=== PATIENT | female | born 1990 | race African-American/Black ===

== ENCOUNTER 2019-08-03 17:52 | Emergency (ER) | payer BC, SELFPAY ==
[2019-08-03 18:05] VITALS: BP 163/118; PULSE 83; RESP 18; TEMP 37; O2SAT 98; BMI 15.5
--- NOTE | 2019-08-03 18:08 | ECG_ITS ---
APPROVED REPORT Exam: Resting ECG HR:76 bpm ECG Measurements Heart Rate 76 AXES OR 146 P 51 QRSd 92 QRS 13 QT 414 T 7 QTc 465 <Conclusion> Normal sinus rhythm Normal ECG Electronically signed by : Surya Fatima, 08/05/2019 11:41:45
--- NOTE | 2019-08-03 18:37 | HMH.EDGENADL ---
ED Disposition Clinical Impression: Hypertension Qualifiers: Hypertension type: essential hypertension Qualified Code(s): I10 - Essential (primary) hypertension Disposition: Home, Self-Care Condition on Discharge: Good Instructions: Essential Hypertension Additional Instructions: You have been evaluated for high blood pressure. This could be due to essential hypertension or secondary hypertension. It is important that you follow-up with your primary care provider as soon as available. You may start taking HCTZ. Return to the emergency department for any vision changes, headache, numbness, weakness, tingling. Prescriptions: hydroCHLOROthiazide [HCTZ 12.5mg cap] 12.5 mg PO DAILY #15 cap Prescription Printed Referrals: Provider,Referral, [Primary Care Provider] - Time of Disposition: 19:33 - Critical Care Critical Care Time: No Attestation: On 08/03/19, the high probability of a clinically significant, sudden or life threatening deterioration of the following system(s) required my full and direct attention, intervention and personal management. The time I documented below is in addition to time spent performing reported procedures but includes the following listed in this critical care notation. Medical Decision Making - Chun Inquiry Pt receiving controlled substance: No Vital Signs: 08/03/19 18:05 Temperature 98.6 F Temperature Source Oral Pulse Rate [Right Radial] 83 Respiratory Rate 18 Blood Pressure [Right Arm] 163/118 H Blood Pressure Mean [Right Arm] 133 Blood Pressure Source [Right Arm] Automatic Cuff Blood Pressure Position [Right Arm] Sitting 02 Sat by Pulse Oximetry 98 Oxygen Delivery Method Room Air - Lab Data Lab Results 08/03/19 18:35: WBC 8.4, RBC 4.75, Hgb 13.7, Hct 41.1, MCV 86.5, MCH 28.8, MCHC 33.3, RDW 14.1, Plt Count 226, MPV 9.3, Neut % (Auto) 53.5, Lymph % (Auto) 37.5, [place] % (Auto) 4.2, Eos % (Auto) 4.4, Baso % (Auto) 0.4, Neut # (Auto) 4.5, Lymph # (Auto) 3.2, [place] # (Auto) 0.4, Eos # (Auto) 0.4, Baso # (Auto) 0.0 08/03/19 18:35: Urine HCG, Qual Negative 08/03/19 18:39: Urine Color Yellow, Urine Appearance Clear, Urine pH 6.0, Ur Specific [place] 1.010, Urine Protein Negative, Urine Glucose (UA) Negative, Urine Ketones Negative, Urine Blood Negative, Urine Nitrate Negative, Urine Bilirubin Negative, Urine Urobilinogen 0.2, Ur Leukocyte Esterase 1+ A, Urine WBC 3-5, Ur Squamous Epith Cells 3-5, Urine Bacteria Trace Result diagrams: 08/03/19 18:35 Orders (Tests/Meds): ORDERS Category Date Time Status Comprehensive Metabolic Panel Stat Lab 08/03/19 18:35 Received Urine Culture Stat Micro 08/03/19 18:39 Received - ECG Data Tracing #1 Sinus rhythm with ventricular rate of 76 bpm. QRS 92. QTc 465. Medical Decision Narrative: In summary this is a 29-year-old female presenting to the emergency department with elevated blood pressure and intermittent headaches. Patient is in no acute distress on arrival to the emergency department. Vital signs are stable. She is hypertensive with blood pressure of 180/110. Differential diagnoses include essential hypertension, secondary hypertension. Plan to obtain CBC, CMP, urinalysis, EKG. EKG shows sinus rhythm with ventricular rate of 76 bpm. There is some evidence of LVH. Laboratry results are generally unremarkable. Renal function adequate. No spillage of protein in the urine. Counseled that she has retention. She will likely need a renal ultrasound in the future. She is given prescription for 12.5 mg HCTZ. She has a primary care follow-up within 1 week. Given return precautions. General Adult HPI - General Chief complaint: Weakness Stated complaint: high blood pressure Time Seen by Provider: 08/03/19 18:17 Mode of Arrival: Ambulatory Source of Information: Patient Limitations: No Limitations Description of Symptoms (Recalled from ER Triage Doc. by RN): Pt reports high blood pressure when she ch
[2019-08-03 18:43] LABS: Microscopic, Urine URINE MICROSCOPIC (MICROSCOPIC)
[2019-08-03 18:48] LABS: Basophils % 0.4 % (0.1-2.0); Eosinophils # 0.4 K/mm3 (0.0-0.4); Eosinophils % 4.4 % (0.1-12.0); Hematocrit 41.1 % (37.0-47.0); Hemoglobin 13.7 g/dL (12.2-16.2); Lymphocytes # 3.2 K/mm3 (0.7-4.5); Lymphocytes % 37.5 % (10-50); Mean Corpuscular HGB Conc 33.3 g/dL (31.8-35.4); Mean Corpuscular Hemoglobin 28.8 pg (27.0-31.2); Mean Corpuscular Volume 86.5 fl (81-99); Mean Platelet Volume 9.3 fl (7.4-10.4); Monocytes # 0.4 K/mm3 (0.1-1.0); Monocytes % 4.2 % (1.7-9.3); Neutrophils # 4.5 K/mm3 (1.8-7.8); Neutrophils % 53.5 % (37.0-80.0); Platelet Count 226 K/mm3 (142-424); Red Blood Count 4.75 M/mm3 (4.20-5.40); Red Cell Distribution Width 14.1 % (11.5-17.5); White Blood Count 8.4 K/mm3 (4.8-10.8)
[2019-08-03 18:49] LABS: Appearance,Urine CLEAR (Clear); Bilirubin,Urine Negative (Negative); Blood, Urine Negative (Negative); Color,Urine YELLOW (Yellow); Glucose,Urine (UA) Negative (Negative); Ketones,Urine Negative (Negative); Leukocyte Esterase,Urine 1+ (Negative); Nitrate,Urine Negative (Negative); Protein,Urine Negative (Negative); Urobilinogen,Urine 0.2 EU/dl (0.2)
[2019-08-03 19:01] LABS: Bacteria,Urine Trace /lpf
[2019-08-03 19:02] LABS: Urine Pregnancy, HCG Qual. Negative (Negative)
[2019-08-03 19:11] LABS: Alanine Aminotransferase 19 U/L (12-78); Albumin Level 4.4 g/dl (3.5-5.0); Albumin/Globulin Ratio 1.3 (1.1-1.8); Alkaline Phosphatase 66 U/L (38-126); Anion Gap 13.9 mEq/L (5-15); Aspartate Amino Transferase 26 U/L (14-36); Bilirubin,Total 0.2 mg/dl (0.2-1.3); Blood Urea Nitrogen 10 mg/dl (7-17); Calcium 9.5 mg/dl (8.4-10.2); Carbon Dioxide 26 mmol/L (22.0-30.0); Chloride 102 mmol/L (98-107); Creatinine Clearance Estimated 156 mL/min (50-200); Estimated Glomerular Filt Rate 73 ml/min (>60); GFR (African American) 88 ML/MIN (>60); Globulin 3.3 g/dL (1.3-3.2); Glucose 99 mg/dl (74-100); Potassium 3.9 mmoL/L (3.5-5.1); Sodium 138 mmol/L (136-145); Total Protein,Serum 7.7 g/dl (6.3-8.2)
[2019-08-03 19:53] VITALS: BP 165/119; PULSE 74; RESP 16; TEMP 36.7; O2SAT 100
== END 2019-08-03 19:56 | disposition home or self-care (01) ==
PROVIDERS: Emergency Provider Emergency Medicine
DX: R51 Headache (principal); I10 Essential (primary) hypertension; F41.9 Anxiety disorder, unspecified; F17.210 Nicotine dependence, cigarettes, uncomplicated
CPT/HCPCS: 80053; 81001; 81025; 85025; 87086; 93005; 99283

== ENCOUNTER 2020-01-28 13:18 | Emergency (ER) | payer BC, SELFPAY ==
[2020-01-28 13:18] VITALS: BP 145/95; PULSE 138; RESP 16; TEMP 37.1; O2SAT 98; BMI 38.0
--- NOTE | 2020-01-28 13:44 | CT_ITS ---
PROCEDURE: CT LUMBAR SPINE WO CON CLINICAL HISTORY: PAIN Right-sided back pain COMPARISON: CT CT ABDOMEN PELVIS W CON from 01/28/2020 TECHNIQUE: Axial images obtained with sagittal and coronal reformats. All CT scans at the facility use one or more dose reduction, viz: automated exposure control, ma/kV adjustment per patient size (including targeted exams where dose is matched to indication, i.e. head), or iterative reconstruction technique. FINDINGS: There is normal alignment. No fracture or dislocation is evident. No lytic or blastic change. There is minimal bulging disc at L3-L4, L4-5, and L5-S1 with minimal central disc protrusion at L5-S1. Mild foraminal narrowing on the left and L4-5 and L5-S1. Nonemergent MRI may provide further evaluation clinically desired. IMPRESSION: 1. No acute fracture. 2. Minimal bulging disc L4-5 and L5-S1 with mild left foraminal narrowing at those levels Dictated by: Yaya White MD 01/28/2020 15:31 Yaya White MD in [facility] 01/28/2020 15:31
--- NOTE | 2020-01-28 13:44 | CT_ITS ---
PROCEDURE: CT ABDOMEN PELVIS W CON CLINICAL INDICATION: RLQ PAIN Right lower quadrant pain COMPARISON: No exams were available for comparison TECHNIQUE: IV Contrast: 75ML Isovue 370 Oral Contrast None Axial images obtained with sagittal and coronal reformats. All CT scans at the facility use one or more dose reduction, viz: automated exposure control, ma/kV adjustment per patient size (including targeted exams where dose is matched to indication, i.e. head), or iterative reconstruction technique. FINDINGS: LOWER THORAX: There are patchy peripheral areas of ground-glass attenuation in both right and left lower lobe. Possible atelectatic change. Mild Covid19 pneumonia could have a similar appearance ABDOMEN & PELVIS: The liver, gallbladder, spleen, adrenal glands, pancreas, and kidneys have an unremarkable appearance. No renal or ureteral calculi. No hydronephrosis. Unremarkable appearing appendix. There is some mild thickening of the colon involving the splenic flexure and descending colon. This is nonspecific and could be due to nondistention or mild colitis. There are few scattered small retroperitoneal lymph nodes which are nonspecific and a few small peritoneal lymph nodes also nonspecific. No intestinal obstruction or free air is evident. No acute bony finding. The uterus is anteverted and slightly bulky. There are somewhat irregular areas of decreased attenuation within the uterine fundus. The left ovary is slightly prominent at 4.8 by 2.7 cm. The right ovary is unremarkable. There is a small amount of fluid in the cul-de-sac. IMPRESSION: 1. No evidence of appendicitis. 2. Somewhat bulky uterus with irregular low-density changes in the fundus of the uterus. Consider pelvic ultrasound for further evaluation. There is a reported negative test. There is a small amount of cul-de-sac fluid and the left ovary is slightly prominent. Pelvic inflammatory disease with endometritis is a consideration. Please correlate with clinical findings. 3. Mild thickening of the splenic flexure and descending colon nonspecific and may be related to nondistention or colitis. Dictated by: Yaya White MD 01/28/2020 15:28 Yaya White MD in [place] 01/28/2020 15:28
[2020-01-28 13:48] LABS: Microscopic, Urine URINE MICROSCOPIC (MICROSCOPIC)
[2020-01-28 13:56] LABS: Alanine Aminotransferase 24 U/L (12-78); Albumin Level 4.6 g/dl (3.5-5.0); Albumin/Globulin Ratio 1.3 (1.1-1.8); Alkaline Phosphatase 82 U/L (38-126); Anion Gap 10.8 mEq/L (5-15); Aspartate Amino Transferase 31 U/L (14-36); Bilirubin,Total 0.7 mg/dl (0.2-1.3); Blood Urea Nitrogen 7 mg/dl (7-17); Calcium 9.3 mg/dl (8.4-10.2); Carbon Dioxide 28 mmol/L (22.0-30.0); Chloride 104 mmol/L (98-107); Creatinine Clearance Estimated 146 mL/min (50-200); Estimated Glomerular Filt Rate 65 ml/min (>60); GFR (African American) 78 ML/MIN (>60); Globulin 3.6 g/dL (1.3-3.2); Glucose 101 mg/dl (74-100); Potassium 3.8 mmoL/L (3.5-5.1); Sodium 139 mmol/L (136-145); Total Protein,Serum 8.2 g/dl (6.3-8.2)
[2020-01-28 13:56] LABS: Appearance,Urine CLEAR (Clear); Bilirubin,Urine Negative (Negative); Blood, Urine Negative (Negative); Color,Urine YELLOW (Yellow); Glucose,Urine (UA) Negative (Negative); Ketones,Urine Negative (Negative); Leukocyte Esterase,Urine Negative (Negative); Nitrate,Urine Negative (Negative); Protein,Urine Negative (Negative); Specific Gravity, Urine >= 1.030 (1.005-1.030); Urobilinogen,Urine 0.2 EU/dl (0.2)
[2020-01-28 14:02] LABS: Urine Pregnancy, HCG Qual. Negative (Negative)
[2020-01-28 14:06] LABS: Basophils % 0.5 % (0.1-2.0); Eosinophils # 0.3 K/mm3 (0.0-0.4); Eosinophils % 4.7 % (0.1-12.0); Hematocrit 45.6 % (37.0-47.0); Hemoglobin 14.8 g/dL (12.2-16.2); Lymphocytes # 2.4 K/mm3 (0.7-4.5); Lymphocytes % 35.9 % (10-50); Mean Corpuscular HGB Conc 32.5 g/dL (31.8-35.4); Mean Corpuscular Hemoglobin 28.5 pg (27.0-31.2); Mean Corpuscular Volume 87.8 fl (81-99); Mean Platelet Volume 9.7 fl (7.4-10.4); Monocytes # 0.4 K/mm3 (0.1-1.0); Monocytes % 5.3 % (1.7-9.3); Neutrophils # 3.6 K/mm3 (1.8-7.8); Neutrophils % 53.6 % (37.0-80.0); Platelet Count 279 K/mm3 (142-424); Red Cell Distribution Width 15.2 % (11.5-17.5); White Blood Count 6.7 K/mm3 (4.8-10.8)
[2020-01-28 14:18] LABS: Squamous Epithelial Cell,Urine Occasional #/hpf (0-5)
[2020-01-28 14:28] LABS: Lipase 66 U/L (23-300)
[2020-01-28 14:55] VITALS: BP 111/78; PULSE 71
--- NOTE | 2020-01-28 16:32 | HMH.EDGENADL ---
ED Disposition Clinical Impression: Lumbar disc herniation Disposition: Home, Self-Care Condition on Discharge: Good Instructions: DI for Lumbar Radiculopathy Prescriptions: Ibuprofen [Ibuprofen 800mg Tablet] 800 mg PO TIDP PRN #20 tab PRN Reason: Moderate Pain Prescription Printed methocarbamoL [Robaxin 750mg Tab] 750 mg PO TID 10 Days #30 tab Prescription Printed Referrals: Daily Valentine [Primary Care Provider] - - Critical Care Critical Care Time: No Attestation: On 01/28/20, the high probability of a clinically significant, sudden or life threatening deterioration of the following system(s) required my full and direct attention, intervention and personal management. The time I documented below is in addition to time spent performing reported procedures but includes the following listed in this critical care notation. Medical Decision Making - Medical Records Medical records reviewed: Yes: I reviewed the patient's medical records. - Chun Inquiry Pt receiving controlled substance: No Vital Signs: 01/28/20 13:18 01/28/20 14:55 Temperature 98.7 F Temperature Source Oral Pulse Rate [Radial] 138 H 71 Respiratory Rate 16 Blood Pressure [Right Arm] 145/95 H 111/78 Blood Pressure Mean [Right Arm] 111 89 Blood Pressure Position [Right Arm] Sitting 02 Sat by Pulse Oximetry 98 Oxygen Delivery Method Room Air - Lab Data Lab Results 01/28/20 13:26: Urine Color Yellow, Urine Appearance Clear, Urine pH 6.0, Ur Specific [place] >= 1.030, Urine Protein Negative, Urine Glucose (UA) Negative, Urine Ketones Negative, Urine Blood Negative, Urine Nitrate Negative, Urine Bilirubin Negative, Urine Urobilinogen 0.2, Ur Leukocyte Esterase Negative, Urine WBC 3-5, Ur Squamous Epith Cells Occasional 01/28/20 13:26: Urine HCG, Qual Negative 01/28/20 13:40: WBC 6.7, RBC 5.20, Hgb 14.8, Hct 45.6, MCV 87.8, MCH 28.5, MCHC 32.5, RDW 15.2, Plt Count 279, MPV 9.7, Neut % (Auto) 53.6, Lymph % (Auto) 35.9, [place] % (Auto) 5.3, Eos % (Auto) 4.7, Baso % (Auto) 0.5, Neut # (Auto) 3.6, Lymph # (Auto) 2.4, [place] # (Auto) 0.4, Eos # (Auto) 0.3, Baso # (Auto) 0.0 01/28/20 13:40: Sodium 139, Potassium 3.8, Chloride 104, Carbon Dioxide 28, Anion Gap 10.8, BUN 7, Creatinine 1.00, Estimated Creat Clear 146, Estimated GFR 65, Est GFR ( Amer) 78, Glucose 101 H, Calcium 9.3, Total Bilirubin 0.7, AST 31, ALT 24, Alkaline Phosphatase 82, Total Protein 8.2, Albumin 4.6, Globulin 3.6 H, Albumin/Globulin Ratio 1.3 01/28/20 13:40: Lipase 66 Result diagrams: 01/28/20 13:40 01/28/20 13:40 Orders (Tests/Meds): ED MEDICATIONS Discontinued Medications Generic Name Dose Route Start Last Admin Trade Name Freq PRN Reason Stop Dose Admin Iopamidol 75 ml 01/28/20 14:43 01/28/20 14:44 Iopamidol-370 (76%);100ml Bottle IV 01/28/20 14:44 75 ml ONCE ONE Administration Ketorolac Tromethamine 30 mg 01/28/20 13:44 01/28/20 13:47 Ketorolac 30mg/Ml Vial IV 01/28/20 13:45 30 mg ONCE ONE Administration Sodium Chloride 10 ml 01/28/20 14:43 01/28/20 14:44 Sodium Chloride 0.9% 10ml Syr (Rad Only) IV 01/28/20 14:44 10 ml ONCE ONE Administration - CT Data CT Scan: Abdomen, Pelvis, L-Spine Time Received: 16:[address] Reviewed: Yes: I have reviewed the patient's CT results, I have viewed the radiologist's interpretation Findings Narrative: CT Lumbar: 1. No acute fracture. 2. Minimal bulging disc L4-5 and L5-S1 with mild left foraminal narrowing at those levels CT abd/pelvis: 1. No evidence of appendicitis. 2. Somewhat bulky uterus with irregular low-density changes in the fundus of the uterus. Consider pelvic ultrasound for further evaluation. There is a reported negative test. There is a small amount of cul-de-sac fluid and the left ovary is slightly prominent. Pelvic inflammatory disease with endometritis is a consideration. Please correlate with clinical findings. 3.
[2020-01-28 16:48] VITALS: BP 125/74; PULSE 78; RESP 16; TEMP 36.6; O2SAT 98
== END 2020-01-28 16:51 | disposition home or self-care (01) ==
PROVIDERS: Emergency Provider Emergency Medicine; PCP Pediatrics
DX: M51.26 Other intervertebral disc displacement, lumbar region (principal); I10 Essential (primary) hypertension; F41.9 Anxiety disorder, unspecified; F17.210 Nicotine dependence, cigarettes, uncomplicated; Z79.899 Other long term (current) drug therapy
CPT/HCPCS: 72131; 74177; 80053; 81001; 81025; 83690; 85025; 96374; 99283; Q9967

== ENCOUNTER → 2020-08-06 14:14 | Outpatient (CLI) | payer BC, SELFPAY ==
--- NOTE | 2020-08-06 14:14 | US_ITS ---
PROCEDURE: US TRANSVAGINAL CLINICAL INDICATION: pelvic pain COMPARISON: No exams were available for comparison FINDINGS: A few small cervical nabothian cyst noted. There is extensive complex fluid throughout the endometrium with marked thickening of the endometrium of 6-7 centimeters. Uterus measures 10 x 7 x 8 cm with a volume of about 270 cc. Right ovary is normal. Left ovary shows a 3 centimeter mildly complex cyst on it. Right ovary measures 4 x 4 x 3 cm with a volume of about 30 cc and the left ovary 4 x 3 x 3 cm with a volume of about 18 cc with normal vascular flow to both ovaries. There is a small amount of nonspecific free fluid in the posterior cul-de-sac. IMPRESSION: Extensive complex fluid throughout the endometrium with marked thickening of the endometrium of 6-7 centimeters. 3 centimeter mildly complex cyst on the left ovary. Repeat transvaginal ultrasound in 6 or 12 weeks recommended for close follow-up. Small amount of nonspecific free fluid in the posterior cul-de-sac. Several small cervical nabothian cysts. Dictated by: [place] Alt[place] 08/07/2020 08:57 [place] in [place] 08/07/2020 08:57
== END ==
PROVIDERS: PCP Pediatrics; Visit Provider Nurse Practitioner Obstetrics & Gynecology
DX: R10.2 Pelvic and perineal pain (principal)
CPT/HCPCS: 76830

== ENCOUNTER 2020-09-17 11:00 | Observation (INO) | payer BC, SELFPAY ==
[2020-09-14 14:59] VITALS: BMI 37.8
[2020-09-17] VITALS (22 sets, daily range): BP systolic 116–152; BP diastolic 64–88; PULSE 64–94; RESP 14–24; TEMP 36.6–42.7; O2SAT 91–99; BMI 36.5
[2020-09-17 06:46] LABS: Coronavirus 19, PCR Not Detected (NotDetected); Influenza A, PCR Not Detected (NotDetected); Influenza B, PCR Not Detected (NotDetected)
[2020-09-17 06:51] LABS: Urine Pregnancy, HCG Qual. Negative (Negative)
--- NOTE | 2020-09-17 06:54 | P.PN_ITS ---
[facility] Anesthesia Checklist - Patient Identification Patient Identification: Arm Band - Structural Data Admitted From: Home Planned Operative Procedure/s: [facility] Consent for Planned Operative Procedure(s) Verified: Yes - NPO Status Verified Time NPO: 00:00 - Additional verifications Anesthesia Reactions: No Hx Blood Transfusions: No Blood Transfusion Reaction: No - Airway Assessment C-Spine Mobility Assessed: Yes TMJ Mobility Assessed: Yes Dentition: Good Dentition - Neurological Assessment Level of Consciousness: Awake Hx Seizures: No Numbness or tingling in extremities: No - Anesthesia Plan Anesthesia Risk discussed: Yes Anesthesia Plan: Verified ASA Class: II Anesthesia Type: General [facility] History I have reviewed the patient's past medical history: Yes Medical History: Reports:: Anxiety, Hypertension Denies:: Cancer, Diabetes Mellitus Type 1, Diabetes Mellitus Type 2, Internal Pacemaker, MRSA, Seizures *Have you ever received a pneumonia vaccine?: No *Have you received a flu vaccine this season?: No Other Medical History: Denies: Blood Transfusion Reaction Anesthesia experience/problems:: None Other Surgeries: Yes: , Other. No: Pacemaker Amputation: No Fractures: No - *Social History Last grade of school completed: High school graduate Smoking Status: Current every day smoker Tobacco Type: cigarettes # Packs/Day (cigarettes): 1 Alcohol Intake: never Alcohol Intake Frequency:: other Substance Use Type: marijuana *Occupational Status:: employed Housing: house Household Members: spouse, family *Travel in the last 8 weeks: None - Psychiatric History Pschychiatric History:: Reports:: Anxiety Family Hx:: Hyperlipidemia, Hypertension, Stroke
--- NOTE | 2020-09-17 09:57 | HMH.OPNOTE ---
Date of procedure: 09/17/20 Pre-op Diagnosis:: Pelvic pain, hematometra, menorrhagia, fibroid uterus Post-op Diagnosis:: Pelvic pain, hematometra, menorrhagia, fibroid uterus, extensive pelvic peritoneal adhesions Procedure performed:: Laparoscopically assisted vaginal hysterectomy, bilateral salpingectomy, extensive lysis of adhesions Surgeon:: Yayo Hurley MD Branch Associate Teller(s):: Clarita Brennan WELL SERVICING RIG OPERATOR:: Jun Hill Anesthesia: GETA Estimated blood loss (mL): 150 Clinical Note:: She is a 30-year-old 3 para 3 lady who complains of severe lower abdominal pain. An ultrasound showed that she had hematometra. She had a previous endometrial ablation. Since then the blood in her uterus has drained and her pain has resolved somewhat. She does have a fibroid. She continued to have abnormal bleeding. As result of that she was offered laparoscopic-assisted vaginal hysterectomy and bilateral salpingectomy. Operative findings:: She had an anteverted bulky uterus. The ovaries and tubes appeared normal. There were extensive omental adhesions along the anterior abdominal wall from the umbilicus all the way down the anterior wall to the pelvic brim. Ovaries and tubes appeared normal. The tubes been previously ligated. Upper abdomen appeared normal. Rest the pelvis appeared normal. Operative note:: She was taken to the operating room where general anesthesia was found be adequate. She was prepped and draped in normal sterile fashion in the semilithotomy position. A weighted speculum was placed in the vagina and the anterior lip of the cervix was grasped with a tenaculum. An acorn uterine manipulator was then placed within the cervical os. I then changed gloves. I injected 10 cc of 0.5% ropivacaine around the umbilicus and made a small incision within the umbilicus. I inserted a Veress needle into the abdominal cavity. The abdominal cavity was then insufflated with carbon dioxide gas to a pressure of 20 mmHg. I then inserted an 11 mm trocar under direct vision. I injected through and through the pubic hairline, made a small incision here and inserted a 5 mm trocar under direct vision. I identified the inferior epigastric arteries on the left side, went lateral to these and injected through and through. I then made a small incision and inserted an 11 mm trocar under direct vision. A similar 11 mm trocar was placed on the right side. There were extensive omental adhesions from the umbilicus down to the pelvic brim. Using harmonic scalpel I took these down. I needed to change the location of the camera from umbilical port to left and right lateral ports as I took down the adhesions. After freeing this up we then turned our attention to the hysterectomy portion of the surgery. The left round ligament was then grasped and cut through with harmonic scalpel. This was followed by opening up the peritoneum anteriorly to the midline. I then grasped the tube on the left side and cut through this. This is followed by cutting through the left utero-ovarian ligament. I used Harmonic scalpel on the coagulation mode. I then took down the posterior aspect of the broad ligament to the level of the uterosacral ligament. I then skeletonized the uterine arteries on the left side and placed hemoclips on these. Using the harmonic scalpel on coagulation mode adjacent to the cervix I then took down these uterine arteries. I then further freed up the bladder anteriorly and laterally on the left side. I then turned my attention to the right side where I grasped the right round ligament. The right tube was adherent to the right pelvic sidewall and using harmonic scalpel I was able to free this up. I then cut through the right round ligament. I then took down the anterior peritoneum to the midline joining up with the other side. I further dissected the bladder off. The posterior aspect of the right broad ligament was then taken down with harmonic scalpel
--- NOTE | 2020-09-17 10:20 | HMH.ANESI ---
[facility] Anesthesia Record Part I Intake, IV Amount: 1,000 Estimated blood loss (mL): 150 Urine output (mL): 100 Blood Pressure: 122/64 SaO2: 92 Pulse Rate: 91 Respiratory Rate: 24 Temperature: 98.4 F Patient is:: Drowsy, Oral/Nasal airway Stable to PACU at:: 10:15
[2020-09-17 10:55] LABS: Microscopic,Cath URINE MICROSCOPIC (MICROSCOPIC)
[2020-09-17 11:03] LABS: Appearance,Urine/Cath CLEAR (Clear); Bilirubin,Cath Negative (Negative); Blood, Urine/Cath TRACE-I (Negative); Color,Urine/Cath YELLOW (Yellow); Glucose,Urine/Cath (UA) Negative (Negative); Ketones,Urine/Cath Negative (Negative); Leukocyte Esterase,Cath 1+ (Negative); Nitrate,Cath Negative (Negative); PH,Urine/Cath 5.5 (5.0-8.5); Protein,Urine/Cath Negative (Negative); Specific Gravity, Urine/Cath 1.025 (1.005-1.030); Urobilinogen,Cath 0.2 EU/dl (0.2)
[2020-09-17 11:18] LABS: Bacteria,Urine/Cath TRACE /lpf
[2020-09-17 16:16] LABS: Hematocrit 37.9 % (37.0-47.0); Hemoglobin 12.5 g/dL (12.2-16.2)
--- NOTE | 2020-09-17 17:46 | PC.NURSE ---
dr. teague gave orders to decrease infusion rate of fluids to 50ml/hr. r/v all orders
--- NOTE | 2020-09-17 18:53 | PC.NURSE ---
1700: pt linens changed at this time. Pt up to bathroom independently. Denies needs or c/o
--- NOTE | 2020-09-17 18:58 | PC.NURSE ---
Report given to Vandana GALINDO and Marcella GALINDO.
[2020-09-18] VITALS (7 sets, daily range): BP systolic 129–143; BP diastolic 71–86; PULSE 68–85; RESP 16–18; TEMP 36.7–36.9; O2SAT 95–100
--- NOTE | 2020-09-18 05:06 | PC.NURSE ---
pt has been awake most of the shift, pain has been controlled no change from previous assessment
[2020-09-18 05:59] LABS: Basophils % 0.1 % (0.1-2.0); Eosinophils # 0.3 K/mm3 (0.0-0.4); Eosinophils % 2.1 % (0.1-12.0); Hematocrit 35.2 % (37.0-47.0); Hemoglobin 11.3 g/dL (12.2-16.2); Mean Corpuscular HGB Conc 32.2 g/dL (31.8-35.4); Mean Corpuscular Hemoglobin 28.1 pg (27.0-31.2); Mean Corpuscular Volume 87.2 fl (81-99); Mean Platelet Volume 9.1 fl (7.4-10.4); Monocytes # 0.4 K/mm3 (0.1-1.0); Monocytes % 2.8 % (1.7-9.3); Neutrophils # 12.8 K/mm3 (1.8-7.8); Neutrophils % 81.9 % (37.0-80.0); Platelet Count 229 K/mm3 (142-424); Red Blood Count 4.04 M/mm3 (4.20-5.40); Red Cell Distribution Width 13.2 % (11.5-17.5); White Blood Count 15.6 K/mm3 (4.8-10.8)
[2020-09-18 06:03] LABS: MANUAL DIFFERENTIAL MANUAL DIFFERENTIAL (MANUAL DIFF)
[2020-09-18 06:09] LABS: Anion Gap 9.9 mEq/L (5-15); Blood Urea Nitrogen 12 mg/dl (7-17); Carbon Dioxide 27 mmol/L (22.0-30.0); Chloride 103 mmol/L (98-107); Creatinine Clearance Estimated 139 mL/min (50-200); Estimated Glomerular Filt Rate 64 ml/min (>60); GFR (African American) 78 ML/MIN (>60); Potassium 3.9 mmoL/L (3.5-5.1); Sodium 136 mmol/L (136-145)
[2020-09-18 06:10] LABS: Calcium 8.3 mg/dl (8.4-10.2); Glucose 112 mg/dl (74-100)
--- NOTE | 2020-09-18 07:10 | PC.NURSE ---
report given to Lenny Javier RN
[2020-09-18 08:11] LABS: Eosinophils % 1 % (0-3); Lymphocytes % 13 % (10-50); Monocytes % 5 % (2-9); Neutrophils % 81 % (42-76); Total Cells Counted 100
[2020-09-18 08:12] LABS: Hypochromasia 1+; Macrocytosis 1+; Platelet Estimate Normal
--- NOTE | 2020-09-18 08:48 | P.PN_ITS ---
[facility] Anesthesia Record Part II Discharge Time: 10:45 Destination: Surgical Day Care (OP Surgery) PACU nurse assessment reviewed?: Yes Patient Condition:: Good Anesthesia Complications:: None Swallowing reflex intact?: Yes Cyanosis?: No Blood Pressure: 130/75 Pulse Rate: 85 Temperature: 98.4 F Mental Status: Alert & Oriented Pain level:: 0 Nausea and/or vomitting:: None Intake, IV Amount: 0
--- NOTE | 2020-09-18 09:32 | PC.NURSE ---
0815 Dr Hurley rounded. Reported pt's pain 11/02 after administration of oxycodone 10mg PO at 0610. Orders to monitor pt until lunch time and try Dilaudid PO 2mg q3hrs for moderate to severe pain. v/u
--- NOTE | 2020-09-18 10:30 | PC.NURSE ---
Teaching provided r/t incisional care. All lap incisions cleansed and assessed. No signs/symptoms of infection noted, all incisions approximated. Pt v/u of care.
--- NOTE | 2020-09-18 11:06 | HMH.DCSUM ---
General - General Admission date:: 09/17/20 Discharge date: 09/18/20 HPI HPI: She is a 30-year-old 3 para 3 lady who had a hematometra that drained. She was having discomfort. She is known to have a fibroid as well. After having discussed the risks and benefits we elected to perform a laparoscopically assisted vaginal hysterectomy and bilateral salpingectomy. She has had a previous endometrial ablation. Hospital Course Hospital Course: On September 17, 2020 she underwent a laparoscopic-assisted vaginal hysterectomy and bilateral salpingectomy. She has done well postoperatively and has remained afebrile with her hospitalization. She was having some issues with pain control and we have given her oral Dilaudid. This is helped with her pain. She is eating and drinking and ambulating. She denies any shortness of breath, chest pain or calf tenderness. Her incisions are clean and dry. She will be discharged home to follow-up with me in approximately 2 weeks time. She will continue with her home medications. She was given the usual instructions with respect to limiting her activity, driving and sexual activity. She was given instructions with respect to wound care. She was given a prescription for hydromore phone 2 mg number 20 tablets. She was given a prescription for Toradol 10 mg number 20 tablets. Her condition on discharge is stable and improved. Objective Vital signs: Temp Pulse Resp BP Pulse Ox 98.4 F 85 16 130/75 100 09/18/20 08:49 09/18/20 08:49 09/18/20 08:24 09/18/20 08:49 09/18/20 08:00 no acute distress - *Routine HEENT Exam Head: Present: normocephalic Eye: Present: EOMI, PERRL ENT: Present: mucous membranes moist - *Routine Neck Exam Present: supple - *Routine Respiratory Exam Present: CTA bilaterally - *Routine Cardiovascular Exam Present: RRR - *Routine Abdominal Exam Present: soft, normoactive bowel sounds. Absent: tenderness - *Routine Extremities Exam Absent: cyanosis, clubbing, edema - *Routine Skin Exam Present: warm. Absent: rash - Detailed Eye Exam Eyelids: Bilateral normal inspection Results Labs on day of discharge: Labs from last 24 hours 09/18/20 09/18/20 09/17/20 05:49 05:49 16:06 WBC 15.6 H RBC 4.04 L Hgb 11.3 L 12.5 Hct 35.2 L 37.9 MCV 87.2 MCH 28.1 MCHC 32.2 RDW 13.2 Plt Count 229 MPV 9.1 Neut % (Auto) 81.9 H Lymph % (Auto) 13.0 [place] % (Auto) 2.8 Eos % (Auto) 2.1 Baso % (Auto) 0.1 Neut # (Auto) 12.8 H Lymph # (Auto) 2.0 [place] # (Auto) 0.4 Eos # (Auto) 0.3 Baso # (Auto) 0.0 Total Counted 100 Neutrophils % (Manual) 81 H Lymphocytes % (Manual) 13 Monocytes % (Manual) 5 Eosinophils % (Manual) 1 Platelet Estimate Normal Hypochromasia 1+ Macrocytosis 1+ Sodium 136 Potassium 3.9 Chloride 103 Carbon Dioxide 27 Anion Gap 9.9 BUN 12 Creatinine 1.00 Estimated Creat Clear 139 Estimated GFR 64 Est GFR ( Amer) 78 Glucose 112 H Calcium 8.3 L Urine Color Urine Appearance Urine pH Ur Specific [place] Urine Protein Urine Glucose (UA) Urine Ketones Urine Blood Urine Nitrate Urine Bilirubin Urine Urobilinogen Ur Leukocyte Esterase Urine RBC Urine WBC Ur Squamous Epith Cells Urine Bacteria 09/17/20 10:00 WBC RBC Hgb Hct MCV MCH MCHC RDW Plt Count MPV Neut % (Auto) Lymph % (Auto) [place] % (Auto) Eos % (Auto) Baso % (Auto) Neut # (Auto) Lymph # (Auto) [place] # (Auto) Eos # (Auto) Baso # (Auto) Total Counted Neutrophils % (Manual) Lymphocytes % (Manual) Monocytes % (Manual) Eosinophils % (Manual) Platelet Estimate Hypochromasia Macrocytosis Sodium Potassium Chloride Carbon Dioxide Anion Gap BUN Creatinine Estimated Creat Clear Estimated GFR Est GFR ( Amer) Glucose Calci
== END 2020-09-18 12:15 | disposition home or self-care (01) ==
PROVIDERS: Admitting Provider Nurse Practitioner Obstetrics & Gynecology; PCP Pediatrics; Visit Provider Nurse Practitioner Obstetrics & Gynecology
PROC: 0UT9FZZ Resection of Uterus, Via Natural or Artificial Opening With Percutaneous Endoscopic Assistance (ICD-10-PCS; CPT 58552; principal; 2020-09-17 07:30)
DX: N85.2 Hypertrophy of uterus (principal); R10.2 Pelvic and perineal pain; N85.7 Hematometra; D25.9 Leiomyoma of uterus, unspecified; N73.6 Female pelvic peritoneal adhesions (postinfective); N92.0 Excessive and frequent menstruation with regular cycle; Z20.822 Contact with and (suspected) exposure to COVID-19
CPT/HCPCS: 58552; 49329; 36415; 80048; 81001; 81025; 85007; 85014; 85018; 85025; 87086; 96374; C9290; G0378; J2405; J2710; U0003

== ENCOUNTER → 2021-02-27 11:49 | Outpatient (CLI) | payer BC, SELFPAY | PROVIDERS: PCP Orthopaedic Surgery; Visit Provider Nurse Practitioner | DX: U07.1 COVID-19 (principal) | CPT/HCPCS: C9803; U0003; U0005 ==

== ENCOUNTER 2021-06-14 21:24 | Emergency (ER) | payer BC, SELFPAY ==
[2021-06-14 21:25] VITALS: BP 140/86; PULSE 91; RESP 18; TEMP 36.9; O2SAT 97; BMI 34.3
[2021-06-14 21:43] VITALS: BMI 34.3
--- NOTE | 2021-06-14 22:00 | PC.NURSE ---
pt declined to have pelvic exam At this time
--- NOTE | 2021-06-14 22:07 | HMH.EDUROGF ---
ED Disposition Clinical Impression: Urethritis, nonspecific Disposition: Home, Self-Care Condition on Discharge: Good Instructions: DI for Urethritis Additional Instructions: use meds and see pcp for follow up Prescriptions: Minocycline HCl [Minocycline HCl 100mg Tab*] 100 mg PO BID #20 tab Transmission Status: Pending to [facility] Referrals: Daily Valentine [Primary Care Provider] - - Critical Care Critical Care Time: No Attestation: On 06/14/21, the high probability of a clinically significant, sudden or life threatening deterioration of the following system(s) required my full and direct attention, intervention and personal management. The time I documented below is in addition to time spent performing reported procedures but includes the following listed in this critical care notation. Medical Decision Making - Medical Records Medical records reviewed: Yes: I reviewed the patient's medical records. - Chun Inquiry Pt receiving controlled substance: No Vital Signs: 06/14/21 21:25 Temperature 98.4 F Temperature Source Oral Pulse Rate [Right] 91 H Respiratory Rate 18 Blood Pressure [Right Arm] 140/86 Blood Pressure Mean [Right Arm] 104 02 Sat by Pulse Oximetry 97 - Lab Data Lab results reviewed: Yes: I reviewed the patient's lab results. Orders (Tests/Meds): ED MEDICATIONS Discontinued Medications Generic Name Dose Route Start Last Admin Trade Name Freq PRN Reason Stop Dose Admin Ceftriaxone Sodium 1 gm 06/14/21 21:57 Ceftriaxone 1gm Vial IM 06/14/21 21:58 ONCE ONE Lidocaine HCl 0 ml 06/14/21 21:57 Lidocaine 1% 5ml Pf Vial IM 06/14/21 21:58 ONCE ONE ORDERS Category Date Time Status Urinalysis and Microscopic Stat Lab 06/14/21 21:45 Ordered Medical Decision Narrative: reported exposure to std will give treatment at this time Female Urogenital HPI - General Chief complaint: Urogenital-Female Stated complaint: painful urination Time Seen by Provider: 06/14/21 22:07 Mode of Arrival: Ambulatory Source of Information: Patient, Medical Record Limitations: No Limitations Description of Symptoms (Recalled from ER Triage Doc. by RN): pt states she was exposed to a STD pt c/o painful urination and burning and itching - History of Present Illness HPI Narrative: reported exposure to gc - pt w/o sx Complaint: possible STD Onset (ago): hour(s) Severity: moderate Urinary Symptoms: dysuria Sexual activity: yes : No Associated symptoms: denies other symptoms - Related Data Home Medications Medication Instructions Recorded Confirmed lisinopril 10 1 tab PO DAILY 07/25/20 11/01/20 mg-hydrochlorothiazide 12.5 mg tablet Previous Rx's Medication Instructions Recorded Minocycline HCl [Minocycline HCl 100 mg PO BID #20 tab 06/14/21 100mg Tab*] Allergies Allergy/AdvReac Type Severity Reaction Status Date / Time guaifenesin [From Mucinex] Allergy Unknown Verified 11/01/20 10:04 morphine Allergy itching Verified 11/01/20 10:04 [facility] History - Hepatitis A Screen Drug use history?: No High risk sexual behaviors?: No History of sexually transmitted infection?: No Currently employed?: No Childcare worker?: No Do you have indoor plumbing?: No Do you have electricity?: No Attestation statement:: This patient has been screened for Hepatitis A risk factors. I have reviewed the patient's past medical history: Yes Medical History: Reports:: Anxiety, Hypertension Denies:: Cancer, Diabetes Mellitus Type 1, Diabetes Mellitus Type 2, Internal Pacemaker, MRSA, Seizures Other Medical History: Denies: Blood Transfusion Reaction Other Surgeries: Yes: , Hysterectomy-Total, Tubal Ligation (Bilateral Salpingectomy), Other. No: Pacemaker Amputation: No Fractures: No Comment: D&C, 2020-[facility] - Social History Smoking Status: Current every day smoker Tobacco Type: cigarettes # Packs/Day (ciga
[2021-06-14 22:31] VITALS: BP 141/74; PULSE 90; RESP 18; TEMP 36.9; O2SAT 97
[2021-06-14 22:40] LABS: Microscopic, Urine URINE MICROSCOPIC (MICROSCOPIC)
[2021-06-14 22:44] LABS: Appearance,Urine CLEAR (Clear); Bilirubin,Urine Negative (Negative); Blood, Urine TRACE-I (Negative); Color,Urine YELLOW (Yellow); Glucose,Urine (UA) Negative (Negative); Ketones,Urine Negative (Negative); Leukocyte Esterase,Urine TRACE (Negative); Nitrate,Urine Negative (Negative); PH,Urine 5.5 (5.0-8.5); Protein,Urine Negative (Negative); Urobilinogen,Urine 0.2 EU/dl (0.2)
[2021-06-19 06:17] LABS: Neisseria gonorrhoeae, NAA Negative (Negative)
== END 2021-06-14 22:36 | disposition home or self-care (01) ==
PROVIDERS: Emergency Provider Emergency Medicine; PCP Pediatrics
DX: N34.2 Other urethritis (principal); I10 Essential (primary) hypertension; F41.9 Anxiety disorder, unspecified; F17.210 Nicotine dependence, cigarettes, uncomplicated
CPT/HCPCS: 81001; 87086; 87491; 87591; 96372; 99283; J0696

== ENCOUNTER 2023-07-17 14:49 | Emergency (ER) | payer BC, SELFPAY ==
[2023-07-17 15:00] VITALS: BP 137/93; PULSE 88; RESP 20; TEMP 36.8; O2SAT 98; BMI 36.5
[2023-07-17 15:12] LABS: Microscopic, Urine URINE MICROSCOPIC (MICROSCOPIC)
[2023-07-17 15:20] LABS: Appearance,Urine CLEAR (Clear); Bilirubin,Urine Negative (Negative); Blood, Urine Negative (Negative); Color,Urine YELLOW (Yellow); Glucose,Urine (UA) Negative (Negative); Ketones,Urine Negative (Negative); Leukocyte Esterase,Urine TRACE (Negative); Nitrate,Urine Negative (Negative); PH,Urine 6.5 (5.0-8.5); Protein,Urine Negative (Negative)
--- NOTE | 2023-07-17 15:26 | ED_ITS ---
Discharge Plan Disposition Patient Disposition: Home, Self-Care Condition: Good Prescriptions Prescriptions: No Action lisinopril-hydrochlorothiazide 10-12.5 mg tablet 1 tab PO DAILY Referrals Follow up/Referrals: Paresh Denis [Primary Care Provider] - See instructions Activity Restrictions/Add. Instructions Additional Instructions/Restrictions: Make sure to follow up with your Family Doctor in the next 5-7 days to get your results they can request the test results and go over them with you No sexual activity until your results are back and they are all negative Follow up with OBGYN Clinical Impressions Clinical Impression: Possible exposure to STD Instructions Patient Instructions: Informing Partners of STI Patients Reduces Ongoing and Recurrent Sexually T, How to Detect and Treat STDs Discharge ED Provider: Darby Mccallum [facility] General Stated complaint: tested for STD Mode of Arrival: Ambulatory Source of Information: Patient Limitations: No Limitations Time Seen by Provider: 07/17/23 15:26 Description of Symptoms (Recalled from Triage Doc. by RN): PATIENT REQUESTING STD TESTING HEENT Symptoms (Recalled from RN notes): No Resp Symptoms (Recalled from RN notes): No Skin Symptoms (Recalled from RN notes): No MS Symptoms (Recalled from RN notes): No Functional Status (Recalled from RN notes): WNL History of Present Illness Provider Complaint: Patient states that she wanted to get tested for STD's States that [facility] but they only had half of her tests and not sure what happened to the rest so she came in today wanting to get tested for STD's specifically HIV, Hep C and Syphilis States that she was positive for Trich a few weeks ago not sure if it is gone now or not Related Data Home Medications Medication Instructions Recorded Confirmed lisinopril 10 1 tab PO DAILY High blood pressure 07/25/20 07/17/23 mg-hydrochlorothiazide 12.5 mg tablet Allergies Allergy/AdvReac Type Severity Reaction Status Date / Time guaifenesin [From Mucinex] Allergy Unknown Verified 11/01/20 10:04 morphine Allergy itching Verified 11/01/20 10:04 Worker's Comp Is this a Worker's Comp case?: No [facility] Disclaimer: The information contained in this section may have been updated after the patient was seen, as this information can be updated by other users. 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 current occupational exposures/hazards: No caffeine: Yes ROS Obtained: Yes All systems reviewed & no additional complaints except as documented and Yes Systems reviewed as appropriate & no additional complaints except as documented Constitutional Constitutional: Reports system reviewed and no additional complaints, except as documented and Reports as per HPI ENT Ears, Nose, Mouth, and Throat: Reports system reviewed and no additional complaints, except as documented and Reports as per HPI Cardiovascular Cardiovascular: Reports system reviewed and no additional complaints, except as documented and Reports as per HPI Respiratory Respiratory: Reports system reviewed and no additional complaints, except as documented and Reports as per HPI Gastrointestinal Gastrointestingal: Reports system reviewed and no additional complaints, except as documented and as per HPI Genitourinary Female Genitourinary: Reports system reviewed and no additional complaints, except as documented and Reports as per HPI Physical Exam General General appearance: alert and in no apparent distress ENT ENT exam: Present mucous membranes moist Respiratory Respiratory exam: Present normal lung sounds bilaterally; Absent respiratory distress or wheezes Cardiovascular Cardiovascular exam: Present regular rate, normal rhythm and normal heart sounds Abdominal Exam Abdominal exam: Present soft and normal bowel sounds; Absent distention or tenderness Neurological Exam Neurological exam: Present alert, oriented X3 and normal gait Medical Decision Making Chun Inquiry Pt receiving controlled substance: No Chun was queried for this patient: No Vital Signs: 07/17/23 15:00 Temperature 98.2 F Temperature Source Oral Pulse Rate [Left Brachial] 88 Respiratory Rate 20 Blood Pressure [Left Arm] 137/93 H Blood Pressure Mean [Left Arm] 107 Blood Pressure Source [Left Arm] Automatic Cuff Blood Pressure Position [Left Arm] Sitting 02 Sat by Pulse Oximetry 98 Oxygen Delivery Method Room Air Lab Data Lab results reviewed: Yes I reviewed the patient's lab results. Lab Results 07/17/23 15:00: Urine Color Yellow, Urine Appearance Clear, Urine pH 6.5, Ur Specific Sylvester 1.020, Urine Protein Negative, Urine Glucose (UA) Negative, Urine Ketones Negative, Urine Blood Negative, Urine Nitrate Negative, Urine Bilirubin Negative, Urine Urobilinogen 1.0, Ur Leukocyte Esterase Trace Orders (Tests/Meds): ORDERS Category Date Time Status Urinalysis and Microscopic Stat Lab 07/17/23 15:00 Results
[2023-07-17 15:32] LABS: Bacteria,Urine Trace /lpf; RBC,Urine Occasional #/hpf (0-3); WBC,Urine Occasional #/hpf (0-3)
[2023-07-17 16:18] VITALS: BP 137/93; PULSE 88; RESP 20; TEMP 36.8; O2SAT 98
[2023-07-19 12:44] LABS: HBsAg Screen Negative (Negative); HCV Ab Non Reactive (Non Reactive); HIV Screen 4th Generation wRfx Non Reactive (Non Reactive); Hep A Ab, IGM Negative (Negative); Hep B Core Ab, IgM Negative (Negative); Rapid Plasma Reagin Ab Titer Non Reactive titer (NonRea<1:1)
[2023-07-19 14:20] LABS: HBsAg Screen Negative (Negative); HCV Ab Non Reactive (Non Reactive); Hep A Ab, IGM Negative (Negative); Hep B Core Ab, IgM Negative (Negative)
[2023-07-20 12:58] LABS: HIV Screen 4th Generation wRfx Non Reactive
[2023-07-21 21:13] LABS: Neisseria gonorrhoeae, NAA Negative (Negative)
[2023-07-26 08:16] LABS: Hepatitis C Antibody Non Reactive
== END 2023-07-17 16:21 | disposition home or self-care (01) ==
PROVIDERS: Emergency Provider Nurse Practitioner; PCP Pediatrics
DX: Z20.2 Contact with and (suspected) exposure to infections with a predominantly sexual mode of transmission (principal)
CPT/HCPCS: 80074; 81001; 86593; 86703; 87380; 87491; 87591; 99203; 99212; G0432; G0463

== ENCOUNTER 2024-01-06 11:49 | Emergency (ER) | payer BC, SELFPAY ==
[2024-01-06 12:05] VITALS: BP 124/77; PULSE 75; RESP 18; TEMP 36.8; O2SAT 100; BMI 38.0
--- NOTE | 2024-01-06 12:07 | EXP.UTC ---
Discharge Plan Disposition Patient Disposition: Home, Self-Care Condition: Good Prescriptions Prescriptions: New amoxicillin 875 mg tablet 875 mg PO Q12H Qty: 20 0RF No Action lisinopril-hydrochlorothiazide 10-12.5 mg tablet 1 tab PO DAILY Referrals Follow up/Referrals: Paresh Denis [Primary Care Provider] - See instructions Activity Restrictions/Add. Instructions Additional Instructions/Restrictions: *Monitor Temp, Over the counter Motrin or Tylenol as directed/as needed Tylenol every 4 hours and Motrin every 6 hours (as long as your family doctor has told you that you can take it) for fever or pain. and straight to ER if unable to lower temp less than 101.0 after medication given *Warm salt water gargles may help to soothe the throat *Throat Lozenges? *Warm fluids like tea with honey may help to soothe the throat? *Sleep elevated *Humidifier/Vaporizer *Take medication as prescribed Your throat swab was sent for culture. Those results are typically sent to your primary care. Be sure to follow up in 2-3 days with your family doctor/primary care physician if no improvement so they can review those result and treat if necessary. If you don?t have a primary care doctor, I recommend you get one but in the mean time, you will have to return to a walk in clinic Follow up IMMEDIATELY for new or worsening symptoms or no Noticeable improvement over the next 48-72 hours. 911 for difficulty breathing or swallowing Clinical Impressions Clinical Impression: Pharyngitis Instructions Patient Instructions: Sore Throat, Amoxicillin Print Language Print Language: Azeri Discharge ED Provider: Darby Mccallum [facility] [place] General Stated complaint: sore throat, past fever Mode of Arrival: Ambulatory Source of Information: Patient Time Seen by Provider: 01/06/24 12:07 Description of Symptoms (Recalled from Triage Doc. by RN): SORE THROAT, NECK PAIN AND COUGH HEENT Symptoms (Recalled from RN notes): Yes Resp Symptoms (Recalled from RN notes): Yes Skin Symptoms (Recalled from RN notes): No MS Symptoms (Recalled from RN notes): No Functional Status (Recalled from RN notes): WNL History of Present Illness Provider Complaint: Patient states that she has been having sore throat, swollen tonsils and cough States that her throat feels dry and scratchy States today she was still not feeling any better so she came in to get checked Related Data Home Medications ?Medication ?Instructions ?Recorded ?Confirmed lisinopril 10 1 tab PO DAILY High blood pressure 07/25/20 01/06/24 mg-hydrochlorothiazide 12.5 mg tablet Previous Rx's ?Medication ?Instructions ?Recorded amoxicillin 875 mg tablet 875 mg PO Q12H #20 tabs 01/06/24 Allergies Allergy/AdvReac Type Severity Reaction Status Date / Time guaifenesin (From Mucinex) Allergy Unknown Verified 11/01/20 10:04 morphine Allergy itching Verified 11/01/20 10:04 Worker's Comp Is this a Worker's Comp case?: No [facility] Disclaimer: The information contained in this section may have been updated after the patient was seen, as this information can be updated by other users. 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 current occupational exposures/hazards: No caffeine: Yes ROS Obtained: Yes All systems reviewed & no additional complaints except as documented and Yes Systems reviewed as appropriate & no additional complaints except as documented Constitutional Constitutional: Reports system reviewed and no additional complaints, except as documented and Reports as per HPI ENT Ears, Nose, Mouth, and Throat: Reports system reviewed and no additional complaints, except as documented, Reports as per HPI and Reports sore throat Cardiovascular Cardiovascular: Reports system reviewed and no additional complaints, except as documented and Reports as per HPI Respiratory Respiratory: Reports system reviewed and no additional complaints, except as documented, Reports as per HPI and Reports cough Gastrointestinal Gastrointestingal: Reports system reviewed and no additional complaints, except as documented and as per HPI Physical Exam General General appearance: alert and in no apparent distress ENT ENT exam: Present mucous membranes moist and TM's normal bilaterally Expanded ENT Exam Throat exam: Present tonsillar erythema (small patchy like area noted) Respiratory Respiratory exam: Present normal lung sounds bilaterally; Absent respiratory distress or wheezes Cardiovascular Cardiovascular exam: Present regular rate, normal rhythm and normal heart sounds Neurological Exam Neurological exam: Present alert, oriented X3 and normal gait Medical Decision Making Medical Records Screening: Per USPSTF and CDC recommendations, given the prevalence of disease in our region, it is our hospital?s policy to screen for HIV and viral Hepatitis for all patients aged 18 and over and those with ongoing risk factors. Chun Inquiry Pt receiving controlled substance: No Chun was queried for this patient: No Vital Signs: 01/06/24 12:05 Temperature 98.2 F Temperature Source Oral Pulse Rate [Left Radial] 75 Respiratory Rate 18 Blood Pressure [Left Arm] 124/77 Blood Pressure Mean [Left Arm] 92 02 Sat by Pulse Oximetry 100 Lab Data Lab results reviewed: Yes I reviewed the patient's lab results.
[2024-01-06 12:11] LABS: UTC Strep Screen (Rapid) Negative (Negative)
[2024-01-06 12:15] VITALS: BP 124/77; PULSE 75; RESP 18; TEMP 36.8
== END 2024-01-06 12:25 | disposition home or self-care (01) ==
PROVIDERS: Emergency Provider Nurse Practitioner; PCP Pediatrics
DX: J02.9 Acute pharyngitis, unspecified (principal)
CPT/HCPCS: 87880; 99213; G0381

== ENCOUNTER 2024-07-04 22:36 | Emergency (ER) | payer OTHER, SELFPAY ==
--- OUTSIDE RECORDS SUMMARY | 2024-07-04 22:46 | XMS_ITS | Data Portability ---
Author Organization [place] - [facility] ADMIN Address [address] [place] [id number] Care Team Providers Care Medical Asst Name Role Phone PARESH DENIS Primary Care Provider [phone] Assessment No assessment recorded. Plan of Treatment Reminders Order Date Submit Date Provider Last Modified By Organization Details Last Modified Time Details Appointments None recorded. Lab TSH + free T4, serum 2023 024 PARLIN [facility], [address], [place], [address], 4 04:23:48 CBC w/ auto diff 2023 024 PARLIN [facility], [address], [place], [address], 4 04:23:49 CMP, serum or plasma 2023 024 PARLIN [facility], [address], [place], [address], 4 04:23:52 infectious disease panel 2023 024 GASTON [facility], [address], [place], [address], 4 13:30:55 lipid panel, serum 2023 024 GASTON [facility], [address], [place], [address], 4 04:23:50 Hepatitis C IgG Ab, qual, serum 2023 024 [facility], [address], [address], [place], [address], 4 04:23:51 HIV 1 + 2, meaningful use set 2023 024 PARLIN [facility], [address], [place], [address], 4 04:23:51 Referral ophthalmol ogist referral 2022 023 [email or web address] [place] Cazares MD, [address], [facility] [address], [place], [address], 3 16:06:39 Procedures None recorded. Surgeries None recorded. Imaging None recorded. Medication Orders lisinopril 40 mg tablet 2023 024 [facility], [address] [place], [address], 4 11:54:06 tizanidine 4 mg tablet 2023 024 [facility], [address] [place], [address], 4 11:54:06 loratadine 10 mg tablet 2023 024 [facility], [address] [place], [address], 4 11:54:05 amitriptyl ine 25 mg tablet 2023 024 [facility], [address] [place], [address], 4 11:54:06 loratadine 10 mg tablet 2022 023 7 [facility], [address] [place], [address], 3 20:53:16 lisinopril 20 mg-hydroch lorothiazi de 12.5 mg tablet 2022 023 [email or web address] 7 [facility], [address] [place], [address], 3 15:51:55 tizanidine 4 mg tablet 2022 023 [email or web address] 7 [facility], [address] [place], [address], 3 10:29:12 Patient TargetsNo targets recorded. Patient InstructionsNo instructions recorded. 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 Decision Support Manager Referral for Ophthalmic examination and evaluation Referring Physician: Paresh Denis, Internal Medicine, Encounter Date: 09/29/2022 Results Created Date Observation Date Name Description Value Unit Range Abnormal Flag Note LastModifiedBy Organization Detail LastModifiedTime 02/05/20 24 02/06/2024 CMP14 +EGFR glucose 84 mg/dL 70-99 normal Not Available [facility] ([facility]) [address] [place], [address], 02/06/2024 06:38:48 02/05/20 24 02/06/2024 CMP14 +EGFR BUN 6 mg/dL 6-20 normal Not Available [facility] ([facility]) [address] [place], [address], 02/06/2024 06:38:48 02/05/20 24 02/06/2024 CMP14 +EGFR creatinine 0.93 mg/dL 0.57-1 .00 normal Not Available [facility] ([facility]) [address] [place], [address], 02/06/2024 06:38:48 02/05/20 24 02/06/2024 CMP14 +EGFR eGFR 82 mL/mi n/1.7 3 >59 normal Not Available [facility] ([facility]) [address] [facility], [place], [address], 02/06/2024 06:38:48 02/05/20 24 02/06/2024 CMP14 +EGFR BUN/creatini ne ratio 6 9-23 below low normal Not Available [facility] ([facility]) [address] [facility] [place], [address], 02/06/2024 06:38:48 02/05/20 24 02/06/2024 CMP14 +EGFR sodium 138 mmol/ L 134-14 4 normal Not Available [facility] ([facility]) [address] [place], [address], 02/06/2024 06:38:48 02/05/20 24 02/06/2024 CMP14 +EGFR potassium 4.4 mmol/ L 3.5-5. 2 normal Not Available [facility] ([facility]) [address] [place], [address], 02/06/2024 06:38:48 02/05/20 24 02/06/2024 CMP14 +EGFR chloride 103 mmol/ L 96-106 normal Not Available [facility] ([facility]) [address] [place], [address], 02/06/2024 06:38:48 02/05/20 24 02/06/2024 CMP14 +EGFR carbon dioxide, total 20 mmol/ L 20-29 normal Not Available [facility] ([facility]) [address] [place], [address], 02/06/2024 06:38:48 02/05/20 24 02/06/2024 CMP14 +EGFR calcium 9.3 mg/dL 8.7-10 .2 normal Not Available [facility] ([facility]) [address] [place], [address], 02/06/2024 06:38:48 02/05/20 24 02/06/2024 CMP14 +EGFR protein, total 7.3 g/dL 6.0-8. 5 normal Not Available [facility] ([facility]) [address] [place], [address], 02/06/2024 06:38:48 02/05/20 24 02/06/2024 CMP14 +EGFR albumin 4.4 g/dL 3.9-4. 9 normal Not Available [facility] ([facility]) [address] [place], [address], 02/06/2024 06:38:48 02/05/20 24 02/06/2024 CMP14 +EGFR globulin, total 2.9 g/dL 1.5-4. 5 Not Available [facility] ([facility]) [address] [place], [address], 02/06/2024 06:38:48 02/05/20 24 02/06/2024 CMP14 +EGFR bilirubin, total 0.7 mg/dL 0.0-1. 2 normal Not Available [facility] ([facility]) [address] [place], [address], 02/06/2024 06:38:48 02/05/20 24 02/06/2024 CMP14 +EGFR alkaline phosphatase 80 IU/L 44-121 normal Not Available [facility] ([facility]) [address] [place], [address], 02/06/2024 06:38:48 02/05/20 24 02/06/2024 CMP14 +EGFR AST (SGOT) 21 IU/L 0-40 normal Not Available [facility] ([facility]) [address] [place], [address], 02/06/2024 06:38:48 02/05/20 24 02/06/2024 CMP14 +EGFR ALT (SGPT) 18 IU/L 0-32 normal Not Available [facility] ([facility]) [address] [place], [address], 02/06/2024 06:38:48 02/05/20 24 02/06/2024 TSH+F REE T4 TSH 0.467 uIU/m L 0.450- 4.500 normal Not Available [facility] ([facility]) [address] [place], [address], 02/06/2024 06:38:48 02/05/20 24 02/06/2024 TSH+F REE T4 T4,free(dire ct) 0.93 NG/dL 0.82-1 .77 normal Not Available [facility] ([facility]) [address] [place], [address], 02/06/2024 06:38:48 02/05/20 24 02/06/2024 CBC WITH DIFFE RENTI AL/PL ATELE T WBC 5.9 x10e3 /uL 3.4-10 .8 normal Not Available [facility] ([facility]) [address] [place], [address], 02/06/2024 06:38:49 02/05/20 24 02/06/2024 CBC WITH DIFFE RENTI AL/PL ATELE T RBC 5.33 x10e6 /uL 3.77-5 .28 above high normal Not Available [facility] ([facility]) [address] [place], [address], 02/06/2024 06:38:49 02/05/20 24 02/06/2024 CBC WITH DIFFE RENTI AL/PL ATELE T hemoglobin 15.4 g/dL 11.1-1 5.9 normal Not Available [facility] ([facility]) [address] [place], [address], 02/06/2024 06:38:49 02/05/20 24 02/06/2024 CBC WITH DIFFE RENTI AL/PL ATELE T hematocrit 47.0 % 34.0-4 6.6 above high normal Not Available [facility] ([facility]) [address] [place], [address], 02/06/2024 06:38:49 02/05/20 24 02/06/2024 CBC WITH DIFFE RENTI AL/PL ATELE T MCV 88 fL 79-97 normal Not Available [facility] ([facility]) [address] [facility], [place], [address], 02/06/2024 06:38:49 02/05/20 24 02/06/2024 CBC WITH DIFFE RENTI AL/PL ATELE T MCH 28.9 pg 26.6-3 3.0 normal Not Available [facility] ([facility]) [address] [place], [address], 02/06/2024 06:38:49 02/05/20 24 02/06/2024 CBC WITH DIFFE RENTI AL/PL ATELE T MCHC 32.8 g/dL 31.5-3 5.7 normal Not Available [facility] ([facility]) [address] [facility], [place], [address], 02/06/2024 06:38:49 02/05/20 24 02/06/2024 CBC WITH DIFFE RENTI AL/PL ATELE T RDW 13.4 % 11.7-1 5.4 Not Available [facility] ([facility]) [address] [place], [address], 02/06/2024 06:38:49 02/05/20 24 02/06/2024 CBC WITH DIFFE RENTI AL/PL ATELE T platelets 297 x10e3 /uL 150-45 0 normal Not Available [facility] ([facility]) [address] [place], [address], 02/06/2024 06:38:49 02/05/20 24 02/06/2024 CBC WITH DIFFE RENTI AL/PL ATELE T neutrophils 53 % not estab. normal Not Available [facility] ([facility]) [address] [place], [address], 02/06/2024 06:38:49 02/05/20 24 02/06/2024 CBC WITH DIFFE RENTI AL/PL ATELE T lymphs 36 % not estab. normal Not Available [facility] ([facility]) [address] [facility], [place], [address], 02/06/2024 06:38:49 02/05/20 24 02/06/2024 CBC WITH DIFFE RENTI AL/PL ATELE T monocytes 8 % not estab. normal Not Available [facility] ([facility]) [address] [facility], [place], [address], 02/06/2024 06:38:49 02/05/20 24 02/06/2024 CBC WITH DIFFE RENTI AL/PL ATELE T eos 3 % not estab. normal Not Available [facility] ([facility]) [address] [facility], [place], [address], 02/06/2024 06:38:49 02/05/20 24 02/06/2024 CBC WITH DIFFE RENTI AL/PL ATELE T basos 0 % not estab. normal Not Available [facility] ([facility]) [address] [facility], [place], [address], 02/06/2024 06:38:49 02/05/20 24 02/06/2024 CBC WITH DIFFE RENTI AL/PL ATELE T immature cells AGENT PRODUCER Not Available [facility] ([facility]) [address] [place], [address], 02/06/2024 06:38:49 02/05/20 24 02/06/2024 CBC WITH DIFFE RENTI AL/PL ATELE T neutrophils (absolute) 3.1 x10e3 /uL 1.4-7. 0 normal Not Available [facility] ([facility]) [address] [place], [address], 02/06/2024 06:38:49 02/05/20 24 02/06/2024 CBC WITH DIFFE RENTI AL/PL ATELE T lymphs (absolute) 2.1 x10e3 /uL 0.7-3. 1 normal Not Available [facility] ([facility]) [address] [facility], [place], [address], 02/06/2024 06:38:49 02/05/20 24 02/06/2024 CBC WITH DIFFE RENTI AL/PL ATELE T monocytes(ab solute) 0.4 x10e3 /uL 0.1-0. 9 normal Not Available [facility] ([facility]) [address] [place], [address], 02/06/2024 06:38:49 02/05/20 24 02/06/2024 CBC WITH DIFFE RENTI AL/PL ATELE T eos (absolute) 0.2 x10e3 /uL 0.0-0. 4 normal Not Available [facility] ([facility]) [address] [facility], [place], [address], 02/06/2024 06:38:49 02/05/20 24 02/06/2024 CBC WITH DIFFE RENTI AL/PL ATELE T baso (absolute) 0.0 x10e3 /uL 0.0-0. 2 normal Not Available [facility] ([facility]) [address] [place], [address], 02/06/2024 06:38:49 02/05/20 24 02/06/2024 CBC WITH DIFFE RENTI AL/PL ATELE T immature granulocytes 0 % not estab. Not Available [facility] ([facility]) [address] [place], [address], 02/06/2024 06:38:49 02/05/20 24 02/06/2024 CBC WITH DIFFE RENTI AL/PL ATELE T immature grans (abs) 0.0 x10e3 /uL 0.0-0. 1 Not Available [facility] ([facility]) [address] [place], [address], 02/06/2024 06:38:49 02/05/20 24 02/06/2024 CBC WITH DIFFE RENTI AL/PL ATELE T NRBC AGENT PRODUCER Not Available [facility] ([facility]) [address], [place], [address], 02/06/2024 06:38:49 02/05/20 24 02/06/2024 CBC WITH DIFFE RENTI AL/PL ATELE T hematology comments: AGENT PRODUCER Not Available [facility] ([facility]) [address], [place], [address], 02/06/2024 06:38:49 02/05/20 24 02/06/2024 LIPID PANEL cholesterol, total 203 mg/dL 100-19 9 above high normal Not Available [facility] ([facility]) [address], [place], [address], 02/06/2024 06:38:49 02/05/20 24 02/06/2024 LIPID PANEL triglyceride s 115 mg/dL 0-149 normal Not Available [facility] ([facility]) [address], [place], [address], 02/06/2024 06:38:49 02/05/20 24 02/06/2024 LIPID PANEL HDL cholesterol 40 mg/dL >39 normal Not Available [facility] ([facility]) [address] [facility], [place], [address], 02/06/2024 06:38:49 02/05/20 24 02/06/2024 LIPID PANEL VLDL cholesterol leroy 21 mg/dL 5-40 Not Available [facility] ([facility]) [address] [facility] [place], [address], 02/06/2024 06:38:49 02/05/20 24 02/06/2024 LIPID PANEL LDL chol calc ([facility]) 142 mg/dL 0-99 above high normal Not Available [facility] ([facility]) [address] [facility], [place], [address], 02/06/2024 06:38:49 02/05/20 24 02/06/2024 LIPID PANEL LDL calc comment: AGENT PRODUCER Not Available [facility] ([facility]) [address] [facility], [place], [address], 02/06/2024 06:38:49 02/05/20 24 02/06/2024 HCV ANTIB LISSETH RFX TO QUANT PCR HCV Ab NON REACTI VE non reacti ve Not Available [facility] ([facility]) [address] [facility], [place], [address], 02/06/2024 06:38:49 02/05/20 24 02/06/2024 HCV ANTIB LISSETH RFX TO QUANT PCR interpretati on: COMMEN T Not infec juan daniel with HCV unles s early or acute infec tion is suspe cted (whic h may be delay ed in an immun ocomp romis ed indiv idual ), or other evide nce exist s to indic ate HCV infec tion. Not Available [facility] ([facility]) [address] [facility], [place], [address], 02/06/2024 06:38:49 02/05/20 24 02/06/2024 HIV AB/P2 4 AG WITH REFLE X HIV Ab/P24 Ag screen NON REACTI VE non reacti ve HIV-1 /HIV- 2 antib odies and HIV-1 p24 antig en were NOT detec juan daniel. There is no labor atory evide nce of HIV infec tion. HIV Negat dwayne Not Available [facility] ([facility]) [address] [facility], [place], [address], 02/06/2024 06:38:50 02/05/20 24 02/06/2024 CGT (ASYM PTOMA TIC) chlamydia trachomatis 0.000 ppm 23.000 - 29.500 normal Not Detec juan daniel Not Available [facility] [address], [place], [address], 02/06/2024 13:30:55 02/05/20 24 02/06/2024 CGT (ASYM PTOMA TIC) neisseria gonorrhoeae 0.000 ppm 23.000 - 29.500 normal Not Detec juan daniel Not Available [facility] [address], [place], [address], 02/06/2024 13:30:55 02/05/20 24 02/06/2024 CGT (ASYM PTOMA TIC) trichomonas vaginalis 0.000 ppm 23.000 - 29.500 normal Not Detec juan daniel Not Available [facility] [address], [place], [address], 02/06/2024 13:30:55 Result Notes None recorded. Problems Name Problem SNOMED Code Status Onset Date Resolution Date Notes Provider Name and Address Organization Details Recorded Time Paresthesia 53589995 Active Flora Fleharty null, [place] - [facility] [place] 2 12:29:52 Goiter 4735787 Active Flora Fleharty null, [place] - [facility] [place] 2 12:29:52 Hypertensive disorder 17686674 Active Flora Fleharty null, [place] - [facility] [place] 2 12:29:52 Degeneration of lumbosacral intervertebra l disc 17207981 Active Flora Fleharty null, [place] - [facility] [place] 2 12:29:52 Spasm 95246372 Active 2022 Paresh Denis MD [address], [place], [address] , [place] - [facility] [place] 3 16:25:25 Chronic headache disorder 151294228 Active 2022 Paresh Denis MD [address], [place], [address] , [place] - [facility] [place] 3 16:25:28 Seasonal allergy 226596742 Active 2022 Paresh Denis MD [address], [place], [address] , [place]A [facility] & [place] 3 16:25:32 Problem Notes None recorded. Procedures Surgical History Date Name Laterality Status Provider Name and Address Organization Details Recorded Time 02/23/19 18 Date of Last Pap Smear completed Taniya SANCHEZ [facility] & [place] 06/12/2022 22:00:07 section completed Taniya SANCHEZ [facility] & [place] 06/12/2022 21:55:12 Total Hysterectomy completed Kim SANCHEZ [facility] & [place] 09/29/2022 15:47:28 Imaging Results None recorded. Procedure Notes None recorded. Medical Equipment None Reported. Allergies Allergen ID Allergen Name Allergen Category Reaction Reaction Severity Criticality Documentation Date Start Date Code Code System Note Provider Name and Address Organization Details Recorded Time 56395 morphine medicatio n Not available Not available Not available 12/24/2021 7052 RxNorm Flora willoughby [facility] & [place] 2 12:29:52 11664 guaifenes in medicatio n Not available Not available Not available 12/24/2021 5032 RxNorm Flora willoughby [facility] & [place] 2 12:29:52 Medications Name Sig Start Date Stop Date Status Note LastModified by Organization Details LastModified Time cyclobenzap rine 10 mg tablet 1 {tablet_a t_bedtime _as_neede d} by oral route. 09/28 completed Not Available Not Available Not Available tizanidine 2 mg tablet 1 {tablet_a s_needed} by oral route. 09/28 completed Not Available Not Available Not Available lisinopril 20 mg-hydrochl orothiazide 12.5 mg tablet TAKE 1 TABLET BY MOUTH EVERY DAY active Not Available Not Available No t Available tizanidine 4 mg tablet Take 1 tablet every 6 hours by oral route for 90 days. 2023 active Not Available Not Available Not Avai lable hydrocodone 5 mg-acetamin ophen 325 mg tablet TAKE 1 TABLET BY MOUTH EVERY 6 HOURS 02/04 completed Not Available Not Available Not Available minocycline 100 mg capsule TAKE ONE CAPSULE BY MOUTH TWICE DAILY -- FINISH ALL MEDICINE -- 09/28 completed Not Available Not Available Not Available metronidazo le 500 mg tablet TAKE 1 TABLET BY MOUTH TWICE A DAY FOR 7 DAYS 02/04 completed Not Available Not Available Not Available amitriptyli ne 25 mg tablet Take 1 tablet every day by oral route. 2023 active Not Available Not Available Not Avai lable lisinopril 40 mg tablet Take 1 tablet every day by oral route. 2023 active Not Available Not Available Not Avai lable loratadine 10 mg tablet Take 1 tablet every day by oral route for 90 days. 2023 active Not Available Not Available Not Avai lable Vitals Date Recorded Body weight Body mass index (BMI) Body height Body temperature Heart rate Systolic blood pressure Diastolic blood pressure Provider Name and Address Organization Details Last Updated DateTime 3 957954. 63 g 37.7 kg/m2 172.72 cm 96.9 [degF] 86 /min 110 mm[Hg] 79 mm[Hg] Kim Soto [facility] & [place] 3 15:51:17 Date Recorded Body weight Body temperature Oxygen saturation Oxygen saturation in Arterial blood by Pulse oximetry Heart rate Systolic blood pressure Diastolic blood pressure Provider Name and Address Organization Details Last Updated DateTime 4 631619. 87 g 97.8 [degF] 97 % 97 % 99 /min 132 mm[Hg] 88 mm[Hg] Kate Chappell [facility] & [place] 4 11:10:05 Social History Question Answer Notes LastModified by Organizat ion Details LastModified Time Tobacco Smoking Status Current Every Day Smoker Kim Soto [facility] & [place] 09/29/2022 15:47:03 Do You Have An Advance Directive? No [email or web address] Information not available 09/29/2022 Are You Blind Or Do You Have Difficulty Seeing? Yes Glasses Information not available 09/29/2022 Is Blood Transfusion Acceptable In An Emergency? Yes [email or web address] Information not available 09/29/2022 What Is Your Level Of Caffeine Consumption? Heavy [email or web address] Information not available 09/29/2022 In The 14 Days Before Symptom Onset, Have You Had Close Contact With A Laboratory-confir med COVID-19 While That Case Was Ill? No [email or web address] Information not available 09/29/2022 In The 14 Days Before Symptom Onset, Have You Had Close Contact With A Person Who Is Under Investigation For COVID-19 While That Person Was Ill? No [email or web address] Information not available 09/29/2022 Have You Been To An Area Known To Be High Risk For COVID-19? No [email or web address] Information not available 09/29/2022 Are You Deaf Or Do You Have Serious Difficulty Hearing? No Information not available 09/29/2022 What Type Of Diet Are You Following? REGULAR [email or web address] Information not available 09/29/2022 Which Illicit Or Recreational Drugs Have You Used? [place] [email or web address] Information not available 09/29/2022 Have You Processed Blood Or Body Fluids From An Ebola Virus Disease Patient Without Appropriate PPE? No Information not available 09/29/2022 Do You Reside In Or Have You Traveled To An Area Where Ebola Virus Transmission Is Active? No [email or web address] Information not available 09/29/2022 Have There Been Any Changes To Your Family Or Social Situation? No [email or web address] Information no t available 09/29/2022 What Is The Fluoride Status Of Your Home? Fluoridated [email or web address] Information not available 09/29/2022 Are There Any Guns Present In Your Home? No Information not available 09/29/2022 Have You Recently Or Are You Planning To Travel To An Area With Zika Virus? No [email or web address] Information not available 09/29/2022 Do You Use Insect Repellent Routinely? Yes [email or web address] Information not available 09/29/2022 What Was The Date Of Your Most Recent Tobacco Screening? 09/28/2022 [email or web address] Information not available 09/29/2022 What Is Your Current Pack Years? 10-19packyears [email or web address] Information not available 09/29/2022 Do You Have Any Pets? Yes [email or web address] Information not available 09/29/2022 Do You Use Your Seat Belt Or Car Seat Routinely? Yes [email or web address] Information not available 09/29/2022 Do You Have Smoke And Carbon Monoxide Detectors In Your Home? Yes Information not available 09/29/2022 At What Age Did You Start Smoking Tobacco? 17 [email or web address] Information not available 09/29/2022 Are You Passively Exposed To Smoke? Yes [email or web address] Information no t available 09/29/2022 How Much Tobacco Do You Smoke? 0.5 PPD [email or web address] Information not available 09/29/2022 Do You Use Sunscreen Routinely? Yes [email or web address] Information not available 09/29/2022 How Many Years Have You Smoked Tobacco? 10 [email or web address] Information not available 09/29/2022 Have You Used IV Drugs? No [email or web address] Information not available 09/29/2022 Are You Currently In School? No [email or web address] Information not available 09/29/2022 Sex: Female Functional Status Question Answer Note LastModified by Organizat ion Details LastModified Time Do you use any illicit or recreational drugs? Yes [email or web address] Information not available 09/29/2022 Do you or have you ever used any other forms of tobacco or nicotine? No [email or web address] Information not available 09/29/2022 What is your level of alcohol consumption? None Information not available 09/29/2022 Do you or have you ever used smokeless tobacco? Never used smokeless tobacco [email or web address] Information not available 09/29/2022 Are you currently employed? Yes [email or web address] Information not available 09/29/2022 Do you have difficulty walking or climbing stairs? No [email or web address] Information not available 09/29/2022 Do you have transportation difficulties? No Information not available 09/29/2022 Are you able to walk? YESWOREST [email or web address] Information not available 09/29/2022 Do you have difficulty doing errands alone? No [email or web address] Information not available 09/29/2022 Are you able to care for yourself? Yes [email or web address] Information n ot available 09/29/2022 Do you have difficulty dressing or bathing? No [email or web address] Information not available 09/29/2022 What is your exercise level? Moderate Information not available 09/29/2022 Mental Status Question Answer Note LastModified by Organizat ion Details LastModified Time Do you feel stressed (tense, restless, nervous, or anxious, or unable to sleep at night)? [id number] [email or web address] Information not available 09/29/2022 Do you have difficulty concentrating, remembering or making decisions? No [email or web address] Information no t available 09/29/2022 Family History Relationship Description Onset Age of this Age Resolved Age Notes LastModified by Organization Details LastModified Time Father Cerebrovascu lar accident [email or web address] Not available 21:58:27 Father Heart disease [email or web address] Not available 2022 21:58:57 Daughter Alive [email or web address] Not availab le 12/29/2023 14:07:59 Son Alive [email or web address] Not available 12/29/2023 14:07:59 Medical History Condition Response Anxiety Disorder Y Eczema Y Hypertension Y Gynecological History Statement/Question Response Menses Monthly N Abnormal Pap N Date of Last Pap Smear 02/23/2017 Current Control Method None Sexually Active? Y Obstetrics History GPAL:G 3 P 0 0 0 2 Type Value Living 2 Total 3 Immunizations Vaccine Type Date Status Note Provider Nam e and Address Organization Details Recorded Time COVID-19, mRNA, LNP-S, PF, 30 mcg/0.3 mL dose 03/10/2020 completed Paresh Denis MD [address] , [place], [address], [facility] - [facility] & [place] 09/29/2022 16:17:21 COVID-19, mRNA, LNP-S, PF, 30 mcg/0.3 mL dose 03/30/2020 completed Paresh Denis MD [address] , [place], [address], [place] - [facility] & [place] 09/29/2022 16:17:22 Past Encounters Encounter ID Performer Location Encounter Start Date Encounter Closed Date Diagnosis/Indication Diagnosis SNOMED-CT Code Diagnosis ICD10 Code Diagnosis Note [id number] [facility] [place] [address] [place] [address] 09/29/2022 15:07:45 09/29/2022 16:30:19 Hypertensive disorder 11746406 I10 Spasm 79086223 R25.2 Precordial pain 41181035 R07.2 Chronic he adache disorder 136629432 G44.89 Ophthalmic examination and evaluation 78917841 Z01.00 Seasonal allergy 5229038 04 J30.2 [id number] Paresh Denis MD [facility] and IM Declansierra stallings [address] [place] [address] 02/05/2024 10:45:48 02/05/2024 12:28:03 Chronic migraine without aura 4768733933 64127 G43.709 Hypertensive disorder 38 329247 I10 Spasm 48977611 R25.2 Seasonal allergy 9792093 04 J30.2 Goiter 0765833 E04.9 Hyperlipidemia 49447986 E78.5 HIV screening 760171768 Z11.4 Hepatitis C screening 41 5373157 Z11.59 Venereal d isease screening 496663598 Z11.3 Health Concerns Section Related Observation LastModified by Organization Detai ls LastModified Time None Recorded Concern Status LastModified by Organization Details LastModified Time None Recorded Advance Directives Directive N: Payers Insurance Date Sequence Insurance Name Policy Number Policy Ordoñez Covered Member ID Ordoñez Member ID Guarantor Name 02/08/2024 1 [employer] [employer] [id number] Cristiane Whatley [id number] Cristiane Cole Notes Date Note Type Note Provider Name and Address Organization Details Recorded Time 09/29/2022 text/html HTN: Very inconsistent with taking BP meds. Hasn't taken it today. Last took it yesterday. CP: Is feeling some heaviness in her chest from time to time. Feels a tightness in her heart. This is random when it happens. Thyromegaly: Has hx of enlarged thryoid. NO recent US. Last US ordered 2019 and not done. Not recent labs. Headaches: Last eye exam was 5 years. Poor compliance with BP meds. Gets HAs mult times per week. No prior dx of migraine headache. SCHULTZ feels like throbbing. Takes ibuprofen and this helps sometimes. Tyelnol doesn't help at all. HMS: PAP smear 2019 (Dr. Shah, [facility]). 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 No colonosocpy; no mammogram; no family hx. Paresh Denis MD [address], [place], [address], [facility] [place] & [place] 10/05/2022 20:53:19 02/05/2024 text/html HTN: History of being very inconsistent with taking BP meds. Doing better more recently; BP looks good.--Doesn't like Thyromegaly: Has hx of enlarged thryoid. NO recent US. Last US ordered 2019 and not done. Not recent labs. No current symptoms. Headaches: Gets HAs mult times per week. No prior dx of migraine headache. SCHULTZ feels like throbbing. Takes ibuprofen and this helps sometimes. Tylenol doesn't help at all. Denies photo-phonphobia. No vision changes. SCHULTZ is unilateral, on left side--Did go and get eye exam and everything stable.--Still getting SCHULTZ 2-3 days per week--Had been on elavil, but cannot recall why this was stopped HMS:--PAP smear 2019 (Dr. Shah, [facility]). 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 Paresh Denis MD [address], [place], [address], [facility] - [facility] 02/05/2024 11:56:26 OBGyn Episode No OBEpisode recorded.
[2024-07-04 22:52] VITALS: BP 185/108; PULSE 110; RESP 18; TEMP 36.9; O2SAT 98; BMI 39.5
--- NOTE | 2024-07-04 22:56 | ED_ITS ---
Discharge Plan Disposition Patient Disposition: Home, Self-Care Condition: Good Prescriptions Prescriptions: No Action lisinopril-hydrochlorothiazide 10-12.5 mg tablet 1 tab PO DAILY amoxicillin 875 mg tablet 875 mg PO Q12H Qty: 20 0RF Referrals Follow up/Referrals: Paresh Denis [Primary Care Provider] - See instructions Activity Restrictions/Add. Instructions Additional Instructions/Restrictions: You were evaluated in the emergency department today. Your testing is pending and your results will be uploaded to your portal. Please follow-up closely with your primary care provider. Your blood pressure was elevated today, however in the setting of acute stress, I do feel this is expected. Please keep an eye on it and let your primary care provider know if it continues to be elevated. Return to the emergency department for new or worsening symptoms. Clinical Impressions Clinical Impression: Possible exposure to STD, Hypertension Instructions Patient Instructions: How to Detect and Treat STDs, DI for Urinary Tract Infection (UTI), DI for Urinary Tract Infection in Children Print Language Print Language: Belarusian Discharge ED Provider: Malia Brunner General Adult HPI General Chief complaint: Urogenital-Female Stated complaint: Possible STD exposure Time Seen by Provider: 07/04/24 22:53 Mode of Arrival: Ambulatory Source of Information: Patient Description of Symptoms (Recalled from ER Triage Doc. by RN): patient states she would like to be checked for STD. Denies any symptoms History of Present Illness HPI narrative: This patient is a 34-year-old female who denies significant past medical history presenting to the emergency department for evaluation with concern for possible exposure to STD. Patient denies any symptoms/concerns/complaints. Patient reports that she went through her 's phone and found evidence that he was cheating on her, prompting her evaluation requesting testing today. She does not want empiric treatment Related Data Home Medications ?Medication ?Instructions ?Recorded ?Confirmed lisinopril 10 1 tab PO DAILY High blood pressure 07/25/20 01/06/24 mg-hydrochlorothiazide 12.5 mg tablet Previous Rx's ?Medication ?Instructions ?Recorded amoxicillin 875 mg tablet 875 mg PO Q12H #20 tabs 01/06/24 Allergies Allergy/AdvReac Type Severity Reaction Status Date / Time guaifenesin (From Mucinex) Allergy Unknown Verified 11/01/20 10:04 morphine Allergy itching Verified 11/01/20 10:04 PFSH PFSH Disclaimer: The information contained in this section may have been updated after the patient was seen, as this information can be updated by other users. 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 current occupational exposures/hazards: No caffeine: Yes Have you lived/traveled outside [place] in past 30 days?: No Contact w/someone who lives/traveled outside US past 30 days?: No Exposure to someone with infectious disease in past 14 days?: No Do you have a fever (greater than 100.4 F or 38 C)?: No Have you tested positive for COVID-19?: No Exposed to someone with COVID-19 in past 14 days?: No Do you have a sore throat?: No Do you have a cough?: No Do you have any weakness?: No Do you have any diarrhea?: No Are you experiencing any unusual bleeding?: No Do you have any muscle aches/pain?: No Do you have any abdominal pain?: No Are you experiencing loss of taste or smell?: No Other Medical History Have you received the Flu Vaccine for this season: No Have you received the Pneumonia Vaccine: No ROS Obtained: Yes All systems reviewed & no additional complaints except as documented Physical Exam General General appearance: alert and in no apparent distress Head Head exam: atraumatic and normocephalic Eye Eye exam: Present normal appearance, PERRL and EOMI ENT ENT exam: Present normal exam, normal oropharynx, mucous membranes moist and normal external ear exam Neck Neck exam: Present normal inspection, full ROM and trachea midline; Absent tenderness Chest Chest inspection: Present normal inspection and symmetric chest wall rise; Absent tenderness Respiratory Respiratory exam: Present normal lung sounds bilaterally; Absent respiratory distress, wheezes, stridor or accessory muscle use Cardiovascular Cardiovascular exam: Present regular rate and normal rhythm Abdominal Exam Abdominal exam: Present soft; Absent distention, tenderness or guarding Extremities Exam Extremities exam: Present normal inspection, full ROM and normal capillary refill; Absent tenderness or edema Back Exam Back exam: Present normal inspection and full ROM; Absent tenderness Neurological Exam Neurological exam: Present alert, oriented X3, CN II-XII intact and normal gait; Absent motor sensory deficit Psychiatric Psychiatric exam: Present normal affect and normal mood Skin Skin exam: Present warm and dry Medical Decision Making Medical Records Medical records reviewed: Yes I reviewed the patient's medical records. Screening: Per USPSTF and CDC recommendations, given the prevalence of disease in our region, it is our hospital?s policy to screen for HIV and viral Hepatitis for all patients aged 18 and over and those with ongoing risk factors. Chun Inquiry Pt receiving controlled substance: No Vital Signs: 07/04/24 22:52 Temperature 98.5 F Temperature Source Oral Pulse Rate [Left] 110 H Respiratory Rate 18 Blood Pressure [Right Arm] 185/108 H Blood Pressure Mean [Right Arm] 133 Blood Pressure Source [Right Arm] Automatic Cuff Blood Pressure Position [Right Arm] Sitting 02 Sat by Pulse Oximetry 98 Oxygen Delivery Method Room Air Lab Data Lab results reviewed: Yes I reviewed the patient's lab results. Orders (Tests/Meds): ORDERS Category Date Time Status HIV Combo Stat Lab 07/04/24 22:53 Ordered HSV 1/2 PCR, (BLOOD/SWAB) Routine Lab 07/04/24 22:53 Ordered Hepatitis C Ab Qual. W/ RFX Stat Lab 07/04/24 22:53 Ordered Urine Chlam/Gono/Trich, SANDRA Stat Lab 07/04/24 22:53 Ordered Urine Culture Stat Micro 07/04/24 22:53 Ordered Medical Decision Narrative: In summary, this patient is a 34-year-old female presenting to the Emergency Department for evaluation of requesting STD testing. Differential diagnoses considered include but are not limited to STD exposure, gonorrhea, chlamydia, HSV, hepatitis, HIV. Ruling out the most morbid conditions drove assessment. It should be noted patient's history includes hypertension which is not at goal therapy. This complicates all aspects of care by increasing patient's risk for morbidity. On exam, the patient is well-appearing. She is hypertensive and tachycardic in the setting of acute stress/anxiety triggering her presentation today. She is asymptomatic. At her request, blood HIV, hepatitis, HSV testing were sent as well as urine gonorrhea, chlamydia, trichomonas. These were pending at time of discharge. She was given instructions to follow results on portal as well as strict return precautions. She was given instructions to monitor her blood pressure given that it was elevated today and I advised that she reach out to her primary care provider for instructions on whether or not she needs to change her dosage. Strict return precautions were given Critical Care Critical Care Time Critical Care Time: No
[2024-07-04 23:02] VITALS: BP 139/112; PULSE 95; RESP 22; TEMP 36.8; O2SAT 98
[2024-07-05 00:19] LABS: Hepatitis C Ab Qual. W/ RFX NEGATIVE (Negative)
[2024-07-05 01:46] LABS: HIV Combo NEGATIVE (Negative)
[2024-07-05 02:45] LABS: Chlamydia trachomatis Negative (Negative); Neisseria gonorrhoeae Negative (Negative); Trichomonas vaginalis Negative (Negative)
[2024-07-09 00:08] LABS: HSV-1 DNA Negative (Negative); HSV-2 DNA Negative (Negative)
== END 2024-07-04 23:06 | disposition home or self-care (01) ==
PROVIDERS: Emergency Provider Emergency Medicine; PCP Pediatrics
DX: Z11.3 Encounter for screening for infections with a predominantly sexual mode of transmission (principal); I10 Essential (primary) hypertension; F17.210 Nicotine dependence, cigarettes, uncomplicated
CPT/HCPCS: 86803; 87086; 87389; 87491; 87529; 87591; 87661; 99283

== ENCOUNTER 2024-09-13 11:12 | Emergency (ER) | payer OTHER, SELFPAY ==
--- OUTSIDE RECORDS SUMMARY | 2024-09-13 11:24 | XMS_ITS | Data Portability ---
Author Organization [facility] ADMIN Address [address] [place] [id number] Care Team Providers Care Radio Station Operator Name Role Phone PARESH DENIS Primary Care Provider [phone] Assessment No assessment recorded. Plan of Treatment Reminders Order Date Submit Date Provider Last Modified By Organization Details Last Modified Time Details Appointments PED [facility] EST 20 2024 08:30A M Paresh Denis MD Not available Not available Not available Lab TSH + free T4, serum 2023 024 [facility], [address], [address], [place], [address], 02/08/2024 04:23:48 CBC w/ auto diff 2023 024 [facility], [address], [address], [place], [address], 02/08/2024 04:23:49 CMP, serum or plasma 2023 024 [facility], [address], [address], [place], [address], 02/08/2024 04:23:52 infectio us disease panel 2023 024 [facility], [address], [place], [address], 02/06/2024 13:30:55 lipid panel, serum 2023 024 [facility], [address], [address], [place], [address], 02/08/2024 04:23:50 Hepatiti s C IgG Ab, qual, serum 2023 024 [place] [facility], [address], [address], [place], [address], 02/08/2024 04:23:51 HIV 1 + 2, meaningf ul use set 2023 024 [facility], [address], [address], [place], [address], 02/08/2024 04:23:51 Referral ophthalm ologist referral 2022 023 [email or web address] [place] Cazares MD, [address] [facility], [address], [place], [address], 02/04/2023 16:06:39 Procedures None recorded . Surgeries None recorded . Imaging None recorded . Medication Orders lisinopr il 40 mg tablet 2023 024 [facility], [address] [place], [address], 02/05/2024 11:54:06 tizanidi ne 4 mg tablet 2023 024 [facility] #3016, [address] [place], [address], 02/05/2024 11:54:06 loratadi ne 10 mg tablet 2023 024 [facility]acy #[facility]016, [address] [place], [address], 02/05/2024 11:54:05 amitript yline 25 mg tablet 2023 024 [facility]acy #[facility]016, [address] [place], [address], 02/05/2024 11:54:06 loratadi ne 10 mg tablet [address]/Pharmacy #3016, [address] [place], [address], 10/05/2022 20:53:16 lisinopr il 20 mg-hydro chloroth iazide 12.5 mg tablet [address]/Pharmacy #3016, [address] [place], [address], 09/30/2022 15:51:55 tizanidi ne 4 mg tablet [address]/Pharmacy #3016, [address] [place], [address], 10/04/2022 10:29:12 Patient TargetsNo targets recorded. Patient InstructionsNo instructions recorded. 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 and evaluation Referring Physician: Paresh Denis, Internal Medicine, Encounter Date: 09/29/2022 Results Created Date Observation Date Name Description Value Unit Range Abnormal Flag Note LastModifiedBy Organization Detail LastModifiedTime 02/05/2002/06/2024 CMP14 +EGFR glucose 84 mg/dL 70-99 normal Not Available [facility] ([facility]) [address] [place], [address], 02/06/2024 06:38:48 02/05/20 24 02/06/2024 CMP14 +EGFR BUN 6 mg/dL 6-20 normal Not Available [facility] ([facility]) [address] [place], [address], 02/06/2024 06:38:48 02/05/20 24 02/06/2024 CMP14 +EGFR creatinine 0.93 mg/dL 0.57-1 .00 normal Not Available [facility] ([facility]) [address] [place], [address], 02/06/2024 06:38:48 02/05/20 24 02/06/2024 CMP14 +EGFR eGFR 82 mL/mi n/1.7 3 >59 normal Not Available [facility] ([facility]) [address] [facility] [place], [address], 02/06/2024 06:38:48 02/05/20 24 02/06/2024 CMP14 +EGFR BUN/creatini ne ratio 6 9-23 below low normal Not Available [facility] ([facility]) [address] [facility] [place], [address], 02/06/2024 06:38:48 02/05/20 24 02/06/2024 CMP14 +EGFR sodium 138 mmol/ L 134-14 4 normal Not Available [facility] ([facility]) [address] [facility] [place], [address], 02/06/2024 06:38:48 02/05/20 24 02/06/2024 CMP14 +EGFR potassium 4.4 mmol/ L 3.5-5. 2 normal Not Available [facility] ([facility]) [address] [place], [address], 02/06/2024 06:38:48 02/05/20 24 02/06/2024 CMP14 +EGFR chloride 103 mmol/ L 96-106 normal Not Available [facility] ([facility]) [address] [facility] [place], [address], 02/06/2024 06:38:48 02/05/20 24 02/06/2024 CMP14 +EGFR carbon dioxide, total 20 mmol/ L 20-29 normal Not Available [facility] ([facility]) [address] [place], [address], 02/06/2024 06:38:48 02/05/20 24 02/06/2024 CMP14 +EGFR calcium 9.3 mg/dL 8.7-10 .2 normal Not Available [facility] ([facility]) [address] [place], [address], 02/06/2024 06:38:48 02/05/20 24 02/06/2024 CMP14 +EGFR protein, total 7.3 g/dL 6.0-8. 5 normal Not Available [facility] ([facility]) [address] [facility], [place], [address], 02/06/2024 06:38:48 02/05/20 24 02/06/2024 CMP14 +EGFR albumin 4.4 g/dL 3.9-4. 9 normal Not Available [facility] ([facility]) [address] [facility], [place], [address], 02/06/2024 06:38:48 02/05/20 24 02/06/2024 CMP14 +EGFR globulin, total 2.9 g/dL 1.5-4. 5 Not Available [facility] ([facility]) [address] [place], [address], 02/06/2024 06:38:48 02/05/20 24 02/06/2024 CMP14 +EGFR bilirubin, total 0.7 mg/dL 0.0-1. 2 normal Not Available [facility] ([facility]) [address] [place], [address], 02/06/2024 06:38:48 02/05/20 24 02/06/2024 CMP14 +EGFR alkaline phosphatase 80 IU/L 44-121 normal Not Available [facility] [address] [place], [address], 02/06/2024 06:38:48 02/05/20 24 02/06/2024 CMP14 +EGFR AST (SGOT) 21 IU/L 0-40 normal Not Available [facility] ([facility]) [address] [place], [address], 02/06/2024 06:38:48 02/05/20 24 02/06/2024 CMP14 +EGFR ALT (SGPT) 18 IU/L 0-32 normal Not Available [facility] ([facility]) [address] [place], [address], 02/06/2024 06:38:48 02/05/20 24 02/06/2024 TSH+F REE T4 TSH 0.467 uIU/m L 0.450- 4.500 normal Not Available [facility] ([facility]) [address] [place], [address], 02/06/2024 06:38:48 02/05/20 24 02/06/2024 TSH+F REE T4 T4,free(dire ct) 0.93 NG/dL 0.82-1 .77 normal Not Available [facility] ([facility]) [address] [place], [address], 02/06/2024 06:38:48 02/05/20 24 02/06/2024 CBC WITH DIFFE RENTI AL/PL ATELE T WBC 5.9 x10e3 /uL 3.4-10 .8 normal Not Available [facility] ([facility]) [address] [place], [address], 02/06/2024 06:38:49 02/05/20 24 02/06/2024 CBC WITH DIFFE RENTI AL/PL ATELE T RBC 5.33 x10e6 /uL 3.77-5 .28 above high normal Not Available [facility] ([facility]) [address] [place], [address], 02/06/2024 06:38:49 02/05/20 24 02/06/2024 CBC WITH DIFFE RENTI AL/PL ATELE T hemoglobin 15.4 g/dL 11.1-1 5.9 normal Not Available [facility] ([facility]) [address] [place], [address], 02/06/2024 06:38:49 02/05/20 24 02/06/2024 CBC WITH DIFFE RENTI AL/PL ATELE T hematocrit 47.0 % 34.0-4 6.6 above high normal Not Available [facility] ([facility]) [address] [place], [address], 02/06/2024 06:38:49 02/05/20 24 02/06/2024 CBC WITH DIFFE RENTI AL/PL ATELE T MCV 88 fL 79-97 normal Not Available [facility] ([facility]) [address] [place], [address], 02/06/2024 06:38:49 02/05/20 24 02/06/2024 CBC WITH DIFFE RENTI AL/PL ATELE T MCH 28.9 pg 26.6-3 3.0 normal Not Available [facility] ([facility]) [address] [facility], [place], [address], 02/06/2024 06:38:49 02/05/20 24 02/06/2024 CBC WITH DIFFE RENTI AL/PL ATELE T MCHC 32.8 g/dL 31.5-3 5.7 normal Not Available [facility] ([facility]) [address] [place], [address], 02/06/2024 06:38:49 02/05/20 24 02/06/2024 CBC WITH DIFFE RENTI AL/PL ATELE T RDW 13.4 % 11.7-1 5.4 Not Available [facility] ([facility]) [address] [place], [address], 02/06/2024 06:38:49 02/05/20 24 02/06/2024 CBC WITH DIFFE RENTI AL/PL ATELE T platelets 297 x10e3 /uL 150-45 0 normal Not Available [facility] ([facility]) [address] [place], [address], 02/06/2024 06:38:49 02/05/20 24 02/06/2024 CBC WITH DIFFE RENTI AL/PL ATELE T neutrophils 53 % not estab. normal Not Available [facility] ([facility]) [address] [facility], [place], [address], 02/06/2024 06:38:49 02/05/20 24 02/06/2024 CBC WITH DIFFE RENTI AL/PL ATELE T lymphs 36 % not estab. normal Not Available [facility] ([facility]) [address] [facility], [place], [address], 02/06/2024 06:38:49 02/05/20 24 02/06/2024 CBC WITH DIFFE RENTI AL/PL ATELE T monocytes 8 % not estab. normal Not Available [facility] ([facility]) [address] [facility], [place], [address], 02/06/2024 06:38:49 02/05/20 24 02/06/2024 CBC WITH DIFFE RENTI AL/PL ATELE T eos 3 % not estab. normal Not Available [facility] ([facility]) [address] [facility], [place], [address], 02/06/2024 06:38:49 02/05/20 24 02/06/2024 CBC WITH DIFFE RENTI AL/PL ATELE T basos 0 % not estab. 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 0 normal Not Available [facility] ([facility]) [address] [place], [address], 02/06/2024 06:38:49 02/05/20 24 02/06/2024 CBC WITH DIFFE RENTI AL/PL ATELE T lymphs (absolute) 2.1 x10e3 /uL 0.7-3. 1 normal Not Available [facility] ([facility]) [address] [facility], [place], [address], 02/06/2024 06:38:49 02/05/20 24 02/06/2024 CBC WITH DIFFE RENTI AL/PL ATELE T monocytes(ab solute) 0.4 x10e3 /uL 0.1-0. 9 normal Not Available [facility] ([facility]) [address] [facility], [place], [address], 02/06/2024 06:38:49 02/05/20 24 02/06/2024 CBC WITH DIFFE RENTI AL/PL ATELE T eos (absolute) 0.2 x10e3 /uL 0.0-0. 4 normal Not Available [facility] ([facility]) [address] [facility], [place], [address], 02/06/2024 06:38:49 02/05/20 24 02/06/2024 CBC WITH DIFFE RENTI AL/PL ATELE T baso (absolute) 0.0 x10e3 /uL 0.0-0. 2 normal Not Available [facility] ([facility]) [address] [facility], [place], [address], 02/06/2024 06:38:49 02/05/20 24 02/06/2024 CBC WITH DIFFE RENTI AL/PL ATELE T immature granulocytes 0 % not estab. Not Available [facility] ([facility]) [address] [facility], [place], [address], 02/06/2024 06:38:49 02/05/20 24 02/06/2024 CBC WITH DIFFE RENTI AL/PL ATELE T immature grans (abs) 0.0 x10e3 /uL 0.0-0. 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 Not Available [facility] ([facility]) [address] [facility], [place], [address], 02/06/2024 06:38:49 02/05/20 24 02/06/2024 LIPID PANEL cholesterol, total 203 mg/dL 100-19 9 above high normal Not Available [facility] ([facility]) [address] [facility], [place], [address], 02/06/2024 06:38:49 02/05/20 24 02/06/2024 LIPID PANEL triglyceride s 115 mg/dL 0-149 normal Not Available [facility] ([facility]) [address] [facility], [place], [address], 02/06/2024 06:38:49 02/05/20 24 02/06/2024 LIPID PANEL HDL cholesterol 40 mg/dL >39 normal Not Available [facility]) [address] [facility], [place], [address], 02/06/2024 06:38:49 02/05/20 24 02/06/2024 LIPID PANEL VLDL cholesterol leroy 21 mg/dL 5-40 Not Available [facility] ([facility]) [address] [facility], [place], [address], 02/06/2024 06:38:49 02/05/20 24 02/06/2024 LIPID PANEL LDL chol calc ([facility]) 142 mg/dL 0-99 above high normal Not Available [facility] ([facility]) [address] [place], [address], 02/06/2024 06:38:49 02/05/20 24 02/06/2024 LIPID PANEL 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 Not Available [facility] ([facility]) [address] [place], [address], 02/06/2024 06:38:49 02/05/20 24 02/06/2024 HIV AB/P2 4 AG WITH REFLE X HIV Ab/P24 Ag screen NON REACTI VE non reacti ve HIV-1 /HIV- 2 antib odies and HIV-1 p24 antig en were NOT detec juan daniel. There is no labor atory evide nce of HIV infec tion. HIV Negat dwayne Not Available [facility] ([facility]) [address] [place], [address], 02/06/2024 06:38:50 02/05/20 24 02/06/2024 CGT (ASYM PTOMA TIC) chlamydia trachomatis 0.000 ppm 23.000 - 29.500 normal Not Detec juan daniel Not Available [facility] [address], [place], [address], 02/06/2024 13:30:55 02/05/20 24 02/06/2024 CGT (ASYM PTOMA TIC) neisseria gonorrhoeae 0.000 ppm 23.000 - 29.500 normal Not Detec juan daniel Not Available [facility] [address], [place], [address], 02/06/2024 13:30:55 02/05/20 24 02/06/2024 CGT (ASYM PTOMA TIC) trichomonas vaginalis 0.000 ppm 23.000 - 29.500 normal Not Detec juan daniel Not Available [facility] [address], [place], [address], 02/06/2024 13:30:55 Result Notes None recorded. Problems Name Problem SNOMED Code Status Onset Date Resolution Date Notes Provider Name and Address Organization Details Recorded Time Paresthesia 61606230 Active Flora Fleharty null, [place] [facility] [place] 2 12:29:52 Goiter 7328690 Active Flora Fleharty null, [place] [facility] [place] 2 12:29:52 Hypertensive disorder 04806924 Active Flora Fleharty null, [place] [facility] [place] 2 12:29:52 Degeneration of lumbosacral intervertebra l disc 59701773 Active Flora Fleharty null, [place] [facility] 2 12:29:52 Spasm 86770345 Active [address], [place], [address] , [place] - [facility] - [place] & [place] 3 16:25:25 Chronic headache disorder 055018067 Active [address], [place], [address] , [facility] & [place] 3 16:25:28 Seasonal allergy 977605873 Active 2022 Paresh Denis MD [address], [place], [address] , [facility] & [place] 3 16:25:32 Problem Notes None recorded. Procedures Surgical History Date Name Laterality Status Provider Name and Address Organization Details Recorded Time 02/23/19 18 Date of Last Pap Smear completed Taniya SANCHEZ [facility] & [place] 06/12/2022 22:00:07 section completed Taniya SANCHEZ [facility] & [place] 06/12/2022 21:55:12 Total Hysterectomy completed Kim Soto [facility] & [place] 09/29/2022 15:47:28 Imaging Results None recorded. Procedure Notes None recorded. Medical Equipment None Reported. Allergies Allergen ID Allergen Name Allergen Category Reaction Reaction Severity Criticality Documentation Date Start Date Code Code System Note Provider Name and Address Organization Details Recorded Time 08074 morphine medicatio n Not available Not available Not available 12/24/2021 7052 [facility] [place] 2 12:29:52 74400 guaifenes in medicatio n Not available Not available Not available 12/24/2021 5032 Rx[facility] [place] 2 12:29:52 Medications Name Sig Start Date [...] Body height Body temperature Heart rate Systolic And Diastolic Provider Name and Address Organization Details Last Updated DateTime 3 967795. 63 g 37.7 kg/m2 172.72 cm 96.9 [degF] 86 /min 110/79 mm[Hg] Kim Soto [facility] & [place] 3 15:51:17 Date Recorded Body weight Body temperature Oxygen saturation Oxygen saturation in Arterial blood by Pulse oximetry Heart rate Systolic And Diastolic Provider Name and Address Organization Details Last Updated DateTime 4 241250. 87 g 97.8 [degF] 97 % 97 % 99 /min 132/88 mm[Hg] Kate Ta [facility] & [place] 4 11:10:05 Social History Question Answer Notes LastModified by Organizat ion Details LastModified Time Tobacco Smoking Status Current Every Day Smoker iKm Soto [facility] & [place] 09/29/2022 15:47:03 Do You Have An Advance Directive? No [email or web address] Information not available 09/29/2022 Are You Blind Or Do You Have Difficulty Seeing? Yes Glasses [email or web address] Information not available 09/29/2022 Is Blood Transfusion Acceptable In An Emergency? Yes [email or web address] Information not available 09/29/2022 What Is Your Level Of Caffeine Consumption? Heavy [email or web address] Information not available 09/29/2022 In The 14 Days Before Symptom Onset, Have You Had Close Contact With A Laboratory-confir med COVID-19 While That Case Was Ill? No [email or web address] Information not available 09/29/2022 In The 14 Days Before Symptom Onset, Have You Had Close Contact With A Person Who Is Under Investigation For COVID-19 While That Person Was Ill? No [email or web address] Information not available 09/29/2022 Have You Been To An Area Known To Be High Risk For COVID-19? No [email or web address] Information not available 09/29/2022 Are You Deaf Or Do You Have Serious Difficulty Hearing? No [email or web address] Information not available 09/29/2022 What Type Of Diet Are You Following? REGULAR [email or web address] Information not available 09/29/2022 Which Illicit Or Recreational Drugs Have You Used? Darby [place] [email or web address] Information not available 09/29/2022 Have You Processed Blood Or Body Fluids From An Ebola Virus Disease Patient Without Appropriate PPE? No [email or web address] Information not available 09/29/2022 Do You Reside In Or Have You Traveled To An Area Where Ebola Virus Transmission Is Active? No [email or web address] Information not available 09/29/2022 Have There Been Any Changes To Your Family Or Social Situation? No [email or web address] Information no t available 09/29/2022 What Is The Fluoride Status Of Your Home? Fluoridated [email or web address] Information not available 09/29/2022 Are There Any Guns Present In Your Home? No Information not available 09/29/2022 Have You Recently Or Are You Planning To Travel To An Area With Zika Virus? No [email or web address] Information not available 09/29/2022 Do You Use Insect Repellent Routinely? Yes [email or web address] Information not available 09/29/2022 What Was The Date Of Your Most Recent Tobacco Screening? 09/28/2022 [email or web address] Information not available 09/29/2022 What Is Your Current Pack Years? 10-19packyears [email or web address] Information not available 09/29/2022 Do You Have Any Pets? Yes [email or web address] Information not available 09/29/2022 Do You Use Your Seat Belt Or Car Seat Routinely? Yes Information not available 09/29/2022 Do You Have Smoke And Carbon Monoxide Detectors In Your Home? Yes [email or web address] Information not available 09/29/2022 At What Age Did You Start Smoking Tobacco? 17 [email or web address] Information not available 09/29/2022 Are You Passively Exposed To Smoke? Yes [email or web address] Information no t available 09/29/2022 How Much Tobacco Do You Smoke? 0.5 PPD [email or web address] Information not available 09/29/2022 Do You Use Sunscreen Routinely? Yes Information not available 09/29/2022 How Many Years Have You Smoked Tobacco? 10 [email or web address] Information not available 09/29/2022 Have You Used IV Drugs? No [email or web address] Information not available 09/29/2022 Do You Have Difficulty Walking Or Climbing Stairs? No [email or web address] Information not available 09/29/2022 Are You Currently In School? No [email or web address] Information not available 09/29/2022 Sex: Female Functional Status Question Answer Note LastModified by Organizat ion Details LastModified Time Do you use any illicit or recreational drugs? Yes [email or web address] Information not available 09/29/2022 Do you or have you ever used any other forms of tobacco or nicotine? No Information not available 09/29/2022 What is your level of alcohol consumption? None [email or web address] Information not available 09/29/2022 Do you or have you ever used smokeless tobacco? Never used smokeless tobacco rauviligk32 Information not available 09/29/2022 Are you currently employed? Yes [email or web address] Information not available 09/29/2022 Do you have transportation difficulties? No [email or web address] Information not available 09/29/2022 Are you able to walk? YESWOREST [email or web address] Information not available 09/29/2022 Do you have difficulty doing errands alone? No [email or web address] Information not available 09/29/2022 Are you able to care for yourself? Yes [email or web address] Information n ot available 09/29/2022 Do you have difficulty dressing or bathing? No [email or web address] Information not available 09/29/2022 What is your exercise level? Moderate Information not available 09/29/2022 Mental Status Question Answer Note LastModified by Organizat ion Details LastModified Time Do you feel stressed (tense, restless, nervous, or anxious, or unable to sleep at night)? [id number] [email or web address] Information not available 09/29/2022 Do you have difficulty concentrating, remembering or making decisions? No [email or web address] Information no t available 09/29/2022 Family History Relationship Description Onset Age of this Age Resolved Age Notes LastModified by Organization Details LastModified Time Father Cerebrovascu lar accident [email or web address] Not available 21:58:27 Father Heart disease [email or web address] Not available 2022 21:58:57 Daughter Alive [email or web address] Not availab le 12/29/2023 14:07:59 Son Alive [email or web address] Not available 12/29/2023 14:07:59 Medical History Condition [...] 03/10/2020 completed Paresh Denis MD [address] [place], [address], [facility] & [place] 09/29/2022 16:17:21 COVID-19, mRNA, LNP-S, PF, 30 mcg/0.3 mL dose 03/30/2020 completed Paresh Denis MD [address] [place], [address] & [place] 09/29/2022 16:17:22 Past Encounters Encounter ID Performer Location Encounter Start Date Encounter Closed Date Diagnosis/Indication Diagnosis SNOMED-CT Code Diagnosis ICD10 Code Diagnosis Note [id number] Paresh Denis MD [facility] [address] [address] 09/29/2022 15:07:45 09/29/2022 16:30:19 Hypertensive disorder 55261164 I10 Spasm 13724261 R25.2 Precordial pain 73441357 R07.2 Chronic he adache disorder 861673365 G44.89 Ophthalmic examination and evaluation 85583688 Z01.00 Seasonal allergy 3622613 04 J30.2 [id number] Paresh Denis MD [facility] [place] [address] 02/05/2024 10:45:48 02/05/2024 12:28:03 Chronic migraine without aura 1168992902 05171 G43.709 Hypertensive disorder 38 589282 I10 Spasm 04730933 R25.2 Seasonal allergy 0701825 04 J30.2 Goiter 5980029 E04.9 Hyperlipidemia 58742456 E78.5 HIV screening 623578263 Z11.4 Hepatitis C screening 41 6974697 Z11.59 Venereal d isease screening 012670267 Z11.3 Health Concerns Section Related Observation LastModified by Organization Detai ls LastModified Time None Recorded Concern Status LastModified by Organization Details LastModified Time None Recorded Advance Directives Directive N: Payers Insurance Date Sequence Insurance Name Policy Number Policy Ordoñez Covered Member ID Ordoñez Member ID Guarantor Name 02/08/2024 1 [place] [id number] Cristiane Whatley [id number] Cristiane Cole Notes Date Note Type [...] all. HMS: PAP smear 2019 (Dr. Shah, [facility]). 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 No colonosocpy; no mammogram; no family hx. Paresh Denis MD [address], [place], [address], [facility] 10/05/2022 20:53:19 02/05/2024 text/html HTN: History of [...] was stopped HMS:--PAP smear 2019 (Dr. Shah, [facility]). 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 Paresh Densi MD [address], [place], [address], [facility] - [facility] 02/05/2024 11:56:26 OBGyn Episode No OBEpisode recorded.
--- OUTSIDE RECORDS SUMMARY | 2024-09-13 11:24 | XMS_ITS | Clinical Summary ---
Author Organization [facility] Address [address] [place] [address] Care Team Providers Care Purification Operator Name Role Phone Unavailable Primary Care Provider Unavailabl e Medications ibuprofen 600 MG tablet TAKE 1 TABLET BY MOUTH EVERY 6 HOURS NEEDED 09/09/2019 Active ibuprofen 800 MG tablet TAKE 1 TABLET 3 TIMES DAILY AFTER MEALS. 01/28/2020 Active lisinopril-hydro CHLOROthiazide 20-25 MG tablet 05/22/2020 Act dwayne methocarbamol (Robaxin) 750 MG tablet TAKE 1 TABLET BY MOUTH THREE TIMES DAILY FOR 10 DAYS 01/28/2020 Active oxyCODONE-acetam inophen (Percocet) 5-325 MG tablet TAKE 1 TABLET EVERY 6 HOURS NEEDED FOR PAIN. 06/28/2020 Active Social History Tobacco Use Types Packs/Day Years Used Date Smoking Tobacco: Every Day Alcohol Use Standard Drinks/Week Comments No 0 (1 standard drink = 0.6 oz pur e alcohol) Comments Unknown Sex and Gender Information Value Date Recorded Sex Assigned at Not on file Legal Sex Female 5:59 PM EDT Gender Identity Not on file Sexual Orientation Not on file Last Filed Vital Signs Vital Sign Reading Time Taken Comments Blood Pressure 135/88 06/22/2020 9:20 AM EDT Pulse 79 06/22/2020 9:20 AM EDT Temperature - - Respiratory Rate - - Oxygen Saturation - - Inhaled Oxygen Concentration - - Weight 116 kg (255 lb 8.2 oz) 06/22/2020 9:20 AM EDT Height 172.7 cm (5' 8 ) 06/22/2020 9:20 AM EDT Body Mass Index 38.85 06/22/2020 9:20 AM EDT Plan of Treatment Health Maintenance Due Date Last Done Comments [facility]-Depression Screening 1988 [facility]-/Child/Adol SDOH Screenings 1988 [facility]-Varicella Vaccines (1 of 2 - 13+ 2-dose series) 02/06/2001 HPV Vaccines (1 - 3-dose series) 02/06/2003 [facility]- SDOH Screenings 02/06/2006 [facility]-Adult SDOH Screenings 02/06/2006 [facility]-DTaP,Tdap,and Td Vaccine s (1 - Tdap) 02/06/2007 [facility]-Hepatitis B Vaccines (1 of 3 - 19+ 3-dose series) 02/06/2007 [facility]-Pap Smear 02/06/2009 [facility]-Cervical Cancer Screening 02/06/2018 [facility]-HPV/Cotest 02/06/2018 [id number] Vaccine (1 - 20 24-25 season) 2023 [facility]-Influenza Vaccine (#1) 2024 [facility]-Zoster Vaccines (1 of 2) 02/06/2038 [facility]-HIB Vaccines Aged Out No longer e ligible based on patient's age to complete this topic [facility]-Hepatitis A Vaccines Aged Out No longer eligible based on patient's age to complete this topic [facility]-IPV Vaccines Aged Out No longer e ligible based on patient's age to complete this topic [facility]-Pneumococcal Vaccine: Pediatrics (0 to 5 Years) and At-Risk Patients (6 to 49 Years) Aged Out No long er eligible based on patient's age to complete this topic [facility]-Rotavirus Vaccines Aged Out No lo nger eligible based on patient's age to complete this topic
[2024-09-13 11:28] VITALS: BP 151/106; PULSE 94; O2SAT 96
[2024-09-13 11:30] VITALS: BP 151/106; BP 158/112; PULSE 84; PULSE 95; RESP 16; TEMP 36.9; O2SAT 95; O2SAT 97; BMI 38.7
--- NOTE | 2024-09-13 11:31 | XR_ITS ---
FINAL REPORT CLINICAL HISTORY: swelling thumb thumb catches , doesn't bend smoothly FINDINGS: Three views show no evidence of acute displaced fracture or dislocation of the visualized bony architecture. The joint spaces appear normal. IMPRESSION: Unremarkable exam. Reviewed, Interpreted and Dictated by Tanisha Mercado MD Transcribed by Nikki Ochoa Authenticated and [facility]
--- NOTE | 2024-09-13 11:40 | PC.NURSE ---
Radiology at bedside.
--- NOTE | 2024-09-13 11:44 | HMH.EDGENADL ---
Discharge Plan Disposition Patient Disposition: Home, Self-Care Prescriptions Prescriptions: No Action lisinopril-hydrochlorothiazide 10-12.5 mg tablet 1 tab PO DAILY amoxicillin 875 mg tablet 875 mg PO Q12H Qty: 20 0RF Referrals Follow up/Referrals: Edmundo Harkins DO [Staff Physician, Orthopedics] - See instructions Paresh Denis [Primary Care Provider, Medical] - See instructions Activity Restrictions/Add. Instructions Additional Instructions/Restrictions: Continue to take Tylenol and ibuprofen for the thumb pain. Please check MyChart for your GC chlamydia results. You will be contacted if they are positive for treatment. Clinical Impressions Clinical Impression: Pain of left thumb Instructions Patient Instructions: Sprain Print Language Print Language: Guyanese Discharge ED Provider: Chris Juarez General Adult HPI <Ana Prado (ED), AUTOMOTIVE COLLISION ESTIMATOR - Last Filed: 09/13/24 13:32> General Chief complaint: Extremity Injury, Upper Stated complaint: left thumb pain, swelling Time Seen by Provider: 09/13/24 11:15 Mode of Arrival: Ambulatory Source of Information: Patient Description of Symptoms (Recalled from ER Triage Doc. by RN): PT presents to the Ed for evaluation of L thumb pain. PT denies injury. States the issue has been going on for a month. States there is periods of burning, numbness, and has a catching feeling. History of Present Illness HPI narrative: 34-year-old female presents to the ED today for left thumb pain. She denies any injury. 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 She says it has been going on for a month or more. She says it catches . She also tells the nurse that she would like STD testing. Related Data Home Medications ?Medication ?Instructions ?Recorded ?Confirmed lisinopril 10 1 tab PO DAILY High blood pressure 07/25/20 01/06/24 mg-hydrochlorothiazide 12.5 mg tablet Previous Rx's ?Medication ?Instructions ?Recorded amoxicillin 875 mg tablet 875 mg PO Q12H #20 tabs 01/06/24 Allergies Allergy/AdvReac Type Severity Reaction Status Date / Time guaifenesin (From Mucinex) Allergy Unknown Verified 11/01/20 10:04 morphine Allergy itching Verified 11/01/20 10:04 PFSH <Ana Prado (ED), AUTOMOTIVE COLLISION ESTIMATOR - Last Filed: 09/13/24 13:32> [facility] Disclaimer: The information contained in this section may have been updated after the patient was seen, as this information can be updated by other users. 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 current occupational exposures/hazards: No caffeine: Yes Have you lived/traveled outside US in past 30 days?: No Contact w/someone who lives/traveled outside US past 30 days?: No Exposure to someone with infectious disease in past 14 days?: No Do you have a fever (greater than 100.4 F or 38 C)?: No Have you tested positive for COVID-19?: No Exposed to someone with COVID-19 in past 14 days?: No Do you have a sore throat?: No Do you have a cough?: No Do you have any weakness?: No Do you have any diarrhea?: No Are you experiencing any unusual bleeding?: No Do you have any muscle aches/pain?: No Do you have any abdominal pain?: No Are you experiencing loss of taste or smell?: No Other Medical History Have you received the Flu Vaccine for this season: No Have you received the Pneumonia Vaccine: No <Ana Prado (ED), AUTOMOTIVE COLLISION ESTIMATOR - Last Filed: 09/13/24 13:32> ROS Obtained: Yes Systems reviewed as appropriate & no additional complaints except as documented Constitutional Constitutional: Reports as per HPI Physical Exam <Ana Prado (ED), AUTOMOTIVE COLLISION ESTIMATOR - Last Filed: 09/13/24 13:32> General General appearance: alert and in no apparent distress Head Head exam: normocephalic Eye Eye exam: Present PERRL and EOMI ENT ENT exam: Present normal oropharynx and mucous membranes moist Neck Neck exam: Present full ROM and trachea midline Respiratory Respiratory exam: Present normal lung sounds bilaterally Cardiovascular Cardiovascular exam: Present regular rate, normal rhythm, normal heart sounds, +S1 and +S2 Extremities Exam Extremities exam: Present normal inspection, tenderness (Left thumb with swelling and pain with movement), normal capillary refill and edema Neurological Exam Neurological exam: Present alert, oriented X3 and normal gait Skin Skin exam: Present warm, dry and intact Medical Decision Making <Ana Prado (ED), AUTOMOTIVE COLLISION ESTIMATOR - Last Filed: 09/13/24 13:32> Medical Records Screening: Per USPSTF and CDC recommendations, given the prevalence of disease in our region, it is our hospital?s policy to screen for HIV and viral Hepatitis for all patients aged 18 and over and those with ongoing risk factors. Chun Inquiry Pt receiving controlled substance: No Chun was queried for this patient: No Vital Signs: 09/13/24 11:28 09/13/24 11:30 09/13/24 11:30 Temperature 98.5 F Temperature Source Oral Pulse Rate 94 H 84 Pulse Rate [Right] 95 H Respiratory Rate 16 Blood Pressure 151/106 H 158/112 H Blood Pressure [Right Arm] 151/106 H Blood Pressure Mean [Right Arm] 121 02 Sat by Pulse Oximetry 96 97 95 Oxygen Delivery Method Room Air Room Air Room Air 09/13/24 12:53 Temperature 98.7 F Temperature Source Pulse Rate 86 Pulse Rate [Right] Respiratory Rate 16 Blood Pressure 158/112 H Blood Pressure [Right Arm] Blood Pressure Mean [Right Arm] 02 Sat by Pulse Oximetry Oxygen Delivery Method Room Air Lab Data Lab Results 09/13/24 11:53: WBC 6.5, RBC 4.81, Hgb 13.8, Hct 41.5, MCV 86.3, MCH 28.7, MCHC 33.3, RDW 13.1, Plt Count 279, MPV 10.3, Neut % (Auto) 49.3, Lymph % (Auto) 38.6, Gaines % (Auto) 6.5, Eos % (Auto) 4.8, Baso % (Auto) 0.5, Neut # (Auto) 3.2, Lymph # (Auto) 2.5, Gaines # (Auto) 0.4, Eos # (Auto) 0.3, Baso # (Auto) 0.0, ESR 12, Sodium 135 L, Potassium 3.8, Chloride 104, Carbon Dioxide 25, Anion Gap 9.8, BUN 6 L, Creatinine 0.70, Estimated Creat Clear 203, Estimated GFR 95, Est GFR ( Amer) 115, Glucose 94, Calcium 9.1, Total Bilirubin 1.1, AST 30, ALT 25, Alkaline Phosphatase 65, C-Reactive Protein 5.6 H, Total Protein 7.1, Albumin 4.3, Globulin 2.8, Albumin/Globulin Ratio 1.5 09/13/24 11:53 09/13/24 11:53 Orders (Tests/Meds): ED MEDICATIONS Discontinued Medications Generic Name Dose Route Start Last Admin Trade Name Tayeq PRN Reason Stop Dose Admin Hydrocodone Bitart/Acetaminophen 1 tab 09/13/24 11:57 09/13/24 12:17 Hydrocodone/Apap 5/325 Mg Tablet PO 09/13/24 11:58 1 tab ONCE ONE Administration ORDERS Category Date Time Status Hand XR left minimum 3 views [XR hand LT min 3V] Stat Exams 09/13/24 11:31 Completed CBC [Complete Blood Count Auto Diff] Stat Lab 09/13/24 11:53 Completed CRP [C-Reactive Protein] Stat Lab 09/13/24 11:53 Completed Chlam/Gono/Trich/Myco, SANDRA, Ur Stat Lab 09/13/24 11:38 Received Comprehensive Metabolic Panel Stat Lab 09/13/24 11:53 Completed Erythrocyte Sedimentation Rate Stat Lab 09/13/24 11:53 Completed Medical Decision Narrative: patient is a 34-year-old female presenting to the emergency department for evaluation of left thumb pain. Patient is hemodynamically stable and nontoxic-appearing upon arrival, afebrile. Differential diagnosis includes arthritis, tendon injury, among others. Workup will be conducted with hematologic labs, specific imaging. Initial inventions include analgesics. Initial workup reviewed by me hematologic labs are remarkable for mildly elevated inflammatory markers. Discussed this with patient and will have her follow-up with Dr. Harkins. Also the STI panel is not back at this time but patient states that she has no symptoms at this time. She says she has MyChart and would like to go home. I offered treatment but she declined. Patient will be sent home. Patient stable for discharge home <Chris Juarez MD - Last Filed: 09/13/24 13:36> Vital Signs: 09/13/24 11:28 09/13/24 11:30 09/13/24 11:30 Temperature 98.5 F Temperature Source Oral Pulse Rate 94 H 84 Pulse Rate [Right] 95 H Respiratory Rate 16 Blood Pressure 151/106 H 158/112 H Blood Pressure [Right Arm] 151/106 H Blood Pressure Mean [Right Arm] 121 02 Sat by Pulse Oximetry 96 97 95 Oxygen Delivery Method Room Air Room Air Room Air 09/13/24 12:53 Temperature 98.7 F Temperature Source Pulse Rate 86 Pulse Rate [Right] Respiratory Rate 16 Blood Pressure 158/112 H Blood Pressure [Right Arm] Blood Pressure Mean [Right Arm] 02 Sat by Pulse Oximetry Oxygen Delivery Method Room Air Lab Data Lab Results 09/13/24 11:53: WBC 6.5, RBC 4.81, Hgb 13.8, Hct 41.5, MCV 86.3, MCH 28.7, MCHC 33.3, RDW 13.1, Plt Count 279, MPV 10.3, Neut % (Auto) 49.3, Lymph % (Auto) 38.6, Gaines % (Auto) 6.5, Eos % (Auto) 4.8, Baso % (Auto) 0.5, Neut # (Auto) 3.2, Lymph # (Auto) 2.5, Gaines # (Auto) 0.4, Eos # (Auto) 0.3, Baso # (Auto) 0.0, ESR 12, Sodium 135 L, Potassium 3.8, Chloride 104, Carbon Dioxide 25, Anion Gap 9.8, BUN 6 L, Creatinine 0.70, Estimated Creat Clear 203, Estimated GFR 95, Est GFR ( Amer) 115, Glucose 94, Calcium 9.1, Total Bilirubin 1.1, AST 30, ALT 25, Alkaline Phosphatase 65, C-Reactive Protein 5.6 H, Total Protein 7.1, Albumin 4.3, Globulin 2.8, Albumin/Globulin Ratio 1.5 Orders (Tests/Meds): ED MEDICATIONS Discontinued Medications Generic Name Dose Route Start Last Admin Trade Name Freq PRN Reason Stop Dose Admin Hydrocodone Bitart/Acetaminophen 1 tab 09/13/24 11:57 09/13/24 12:17 Hydrocodone/Apap 5/325 Mg Tablet PO 09/13/24 11:58 1 tab ONCE ONE Administration ORDERS Category Date Time Status Hand XR left minimum 3 views [XR hand LT min 3V] Stat Exams 09/13/24 11:31 Completed CBC [Complete Blood Count Auto Diff] Stat Lab 09/13/24 11:53 Completed CRP [C-Reactive Protein] Stat Lab 09/13/24 11:53 Completed Chlam/Gono/Trich/Myco, SANDRA, Ur Stat Lab 09/13/24 11:38 Received Comprehensive Metabolic Panel Stat Lab 09/13/24 11:53 Completed Erythrocyte Sedimentation Rate Stat Lab 09/13/24 11:53 Completed Medical Decision Narrative: patient is a 34-year-old female presenting to the emergency department for evaluation of left thumb pain. Patient is hemodynamically stable and nontoxic-appearing upon arrival, afebrile. Differential diagnosis includes arthritis, tendon injury, among others. Workup will be conducted with hematologic labs, specific imaging. Initial inventions include analgesics. Initial workup reviewed by me hematologic labs are remarkable for mildly elevated inflammatory markers. Discussed this with patient and will have her follow-up with Dr. Harkins. Also the STI panel is not back at this time but patient states that she has no symptoms at this time. She says she has MyChart and would like to go home. I offered treatment but she declined. Patient will be sent home. Patient stable for discharge home I was consulted by the MONT[facility], and we discussed the complexity of the problems being addressed. I approve the treatment and management plan for this patient's care in the emergency department, thus performing a substantive portion of the medical decision making. Chris Juarez MD Critical Care <Ana Prado (ED), AUTOMOTIVE COLLISION ESTIMATOR - Last Filed: 09/13/24 13:32> Critical Care Time Critical Care Time: No
[2024-09-13 12:02] LABS: Hematocrit 41.5 % (37.0-47.0); Hemoglobin 13.8 g/dL (12.2-16.2); Immature Granulocytes % 0.3 %; Mean Corpuscular HGB Conc 33.3 g/dL (31.8-35.4); Mean Corpuscular Hemoglobin 28.7 pg (27.0-31.2); Mean Corpuscular Volume 86.3 fl (81-99); Nucleated Red Blood Cells % 0 %; Platelet Count 279 K/mm3 (142-424); Red Blood Count 4.81 M/mm3 (4.20-5.40); Red Cell Distribution Width-SD 41.1 fL; White Blood Count 6.5 K/mm3 (4.8-10.8)
[2024-09-13 12:11] LABS: Albumin Level 4.3 g/dl (3.5-5.0); Chloride 104 mmol/L (98-107); Sodium 135 mmol/L (136-145)
[2024-09-13 12:12] LABS: Potassium 3.8 mmoL/L (3.5-5.1)
[2024-09-13 12:14] LABS: Alanine Aminotransferase 25 U/L (12-78); Aspartate Amino Transferase 30 U/L (14-36); Blood Urea Nitrogen 6 mg/dl (7-17); Creatinine Clearance Estimated 203 mL/min (50-200); Creatinine,Serum 0.70 mg/dl (0.52-1.04); Estimated Glomerular Filt Rate 95 ml/min (>60); GFR (African American) 115 ML/MIN (>60)
[2024-09-13 12:15] LABS: Albumin/Globulin Ratio 1.5 (1.1-1.8); Alkaline Phosphatase 65 U/L (38-126); Anion Gap 9.8 mEq/L (5-15); Bilirubin,Total 1.1 mg/dl (0.2-1.3); Calcium 9.1 mg/dl (8.4-10.2); Carbon Dioxide 25 mmol/L (22.0-30.0); Globulin 2.8 g/dL (1.3-3.2); Glucose 94 mg/dl (74-100); Total Protein,Serum 7.1 g/dl (6.3-8.2)
[2024-09-13] MEDS: HYDROCODONE/APAP 5/325 MG TABLET 1 TAB PO (12:17)
[2024-09-13 12:20] LABS: C-Reactive Protein 5.6 mg/L (0-4)
[2024-09-13 12:53] VITALS: BP 158/112; PULSE 86; RESP 16; TEMP 37.1; O2SAT 95
[2024-09-16 14:15] LABS: Mycoplasma genitalium, NAA Negative (Negative); Neisseria gonorrhoeae, NAA Negative (Negative)
== END 2024-09-13 12:54 | disposition home or self-care (01) ==
PROVIDERS: Nurse Practitioner; Emergency Provider Student in an Organized Health Care Education/Training Program; PCP Pediatrics
DX: M79.645 Pain in left finger(s) (principal); I10 Essential (primary) hypertension; F17.210 Nicotine dependence, cigarettes, uncomplicated
CPT/HCPCS: 73130; 80053; 85025; 85651; 86140; 87491; 87563; 87591; 87661; 99283

== ENCOUNTER 2024-10-15 00:22 | Emergency (ER) | payer OTHER, SELFPAY ==
[2024-10-15] VITALS (15 sets, daily range): BP systolic 76–116; BP diastolic 48–81; PULSE 76–100; RESP 11–19; TEMP 36.5–36.8; O2SAT 95–100; BMI 38.7
--- OUTSIDE RECORDS SUMMARY | 2024-10-15 00:28 | XMS_ITS | Clinical Summary ---
Author Organization [facility] Address [address] [place] [address] Care Team Providers Care Visual Journalist Name Role Phone Unavailable Primary Care Provider [...] of 2 - 13+ 2-dose series) 02/06/2001 [facility]- SDOH Screenings 02/06/2006 [facility]-Adult SDOH Screenings 02/06/2006 [facility]-DTaP,Tdap,and Td Vaccine s (1 - Tdap) 02/06/2007 [facility]-Hepatitis B Vaccines (1 of 3 - 19+ 3-dose series) 02/06/2007 [facility]-Pap Smear 02/06/2009 HPV Vaccines (1 - 3-dose SCD M series) 02/06/2015 [facility]-Cervical Cancer Screening 02/06/2018 [facility]-HPV/Cotest 02/06/2018 [id number] Vaccine (1 - 20 24-25 season) 2023 [...]
--- NOTE | 2024-10-15 00:35 | ECG_ITS ---
APPROVED REPORT Exam: Resting ECG HR:94 bpm ECG Measurements Heart Rate 94 AXES QRSd 100 QRS 56 QT 407 T 50 QTc 458 Conclusion SUPRAVENTRICULAR RHYTHM NONSPECIFIC T-WAVE ABNORMALITY No STEMI Electronically signed by : MARIO ALBERTO MORATAYA, 10/15/2024 05:16:53
[2024-10-15] MEDS: ASPIRIN 81MG CHEWABLE TABLET 324 MG PO (00:40)
--- NOTE | 2024-10-15 00:47 | XR_ITS ---
PROCEDURE INFORMATION: Exam: XR Chest Exam date and time: 10/15/2024 1:00 AM Age: 34 years old Clinical indication: Other: Syncope TECHNIQUE: Imaging protocol: Radiologic exam of the chest. Views: 2 views. Total images: 2 COMPARISON: CT ABDOMEN PELVIS W CON 01/28/2020 2:27 PM FINDINGS: Lungs: Unremarkable. No consolidation. No pulmonary vascular congestion or edema. Pleural spaces: Unremarkable. No pleural effusion. No pneumothorax. Heart/Mediastinum: Unremarkable. No cardiomegaly. No mediastinal widening or hilar enlargement. Bones/joints: Unremarkable. IMPRESSION: No radiographically acute cardiopulmonary process.
[2024-10-15] MEDS: LACTATED RINGERS 1000ML 1,000 ML 999 ML IV (01:14)
--- NOTE | 2024-10-15 01:40 | ECG_ITS ---
APPROVED REPORT Exam: Resting ECG HR:81 bpm ECG Measurements Heart Rate 81 AXES VT 146 P 63 QRSd 101 QRS 62 QT 436 T 48 QTc 473 Conclusion SINUS RHYTHM No STEMI Electronically signed by : MARIO ALBERTO MORATAYA, 10/15/2024 05:17:13
[2024-10-15 02:09] LABS: Hematocrit 42.4 % (37.0-47.0); Hemoglobin 14.6 g/dL (12.2-16.2); Immature Granulocytes % 0.4 %; Mean Corpuscular HGB Conc 34.4 g/dL (31.8-35.4); Mean Corpuscular Hemoglobin 30.1 pg (27.0-31.2); Mean Corpuscular Volume 87.4 fl (81-99); Nucleated Red Blood Cells % 0 %; Platelet Count 223 K/mm3 (142-424); Red Blood Count 4.85 M/mm3 (4.20-5.40); Red Cell Distribution Width-SD 42.3 fL; White Blood Count 6.9 K/mm3 (4.8-10.8)
[2024-10-15 02:15] LABS: Alanine Aminotransferase 30 U/L (12-78); Albumin Level 4.4 g/dl (3.5-5.0); Albumin/Globulin Ratio 1.4 (1.1-1.8); Alkaline Phosphatase 65 U/L (38-126); Anion Gap 16.5 mEq/L (5-15); Aspartate Amino Transferase 35 U/L (14-36); Bilirubin,Total 0.6 mg/dl (0.2-1.3); Blood Urea Nitrogen 15 mg/dl (7-17); Calcium 8.9 mg/dl (8.4-10.2); Carbon Dioxide 21 mmol/L (22.0-30.0); Chloride 101 mmol/L (98-107); Creatinine Clearance Estimated 109 mL/min (50-200); Creatinine,Serum 1.30 mg/dl (0.52-1.04); Estimated Glomerular Filt Rate 46 ml/min (>60); GFR (African American) 56 ML/MIN (>60); Globulin 3.2 g/dL (1.3-3.2); Glucose 111 mg/dl (74-100); Potassium 3.5 mmoL/L (3.5-5.1); Sodium 135 mmol/L (136-145); Total Protein,Serum 7.6 g/dl (6.3-8.2)
[2024-10-15 02:16] LABS: INR 0.98 (0.9-1.1); Prothrombin Time 10.9 seconds (10.1-12.5)
[2024-10-15 02:27] LABS: NT Pro Brain Natriuretic Pep. < 20.0 pg/mL (0-125)
[2024-10-15 02:31] LABS: Troponin I < 0.01 ng/ml (0.00-0.034)
[2024-10-15 02:44] LABS: D-Dimer 0.65 ug/mL (0.0-0.5)
--- NOTE | 2024-10-15 03:40 | ED_ITS ---
Discharge Plan Disposition Patient Disposition: Home, Self-Care Condition: Good Prescriptions Prescriptions: No Action lisinopril-hydrochlorothiazide 10-12.5 mg tablet 1 tab PO DAILY amoxicillin 875 mg tablet 875 mg PO Q12H Qty: 20 0RF Referrals Follow up/Referrals: Provider,Referral, [Primary Care Provider, Medical] - See instructions Activity Restrictions/Add. Instructions Additional Instructions/Restrictions: You were evaluated in the ER and are believed to be appropriate for discharge at this time. Stop taking the new hydrochlorothiazide medication. Continue all your other home medications as previously prescribed. Drink plenty of water, Gatorade, Pedialyte to maintain good hydration and protect your kidneys. Make an appointment to be seen by your primary care doctor first thing Thursday. Return to the ER with any new, worsening, or otherwise concerning symptoms. Clinical Impressions Clinical Impression: Orthostatic hypotension, Dehydration, Medication side effect, REUBEN (acute kidney injury) Instructions Patient Instructions: DI for Syncope in Adults (Fainting), DI for Orthostatic Hypotension, DI for Dehydration -- Adult Print Language Print Language: Portuguese Discharge ED Provider: Lv Hayes General Adult HPI General Chief complaint: Syncope Stated complaint: Syncopal episode Time Seen by Provider: 10/15/24 00:47 Mode of Arrival: EMS Source of Information: Patient and EMS Description of Symptoms (Recalled from ER Triage Doc. by RN): Pt in by EMS for syncopal episode, with a fall from standing unknown hitting head. Pt is A/O x 4, GCS 15 upon arrival. Pt currently denies any pain. History of Present Illness HPI narrative: 34-year-old female presents to the ER with EMS for syncopal episode. Patient reports she got up to walk to the bathroom and syncopized. She does not take any blood thinners. She is not complaining of any pain. She had no chest pain or difficulty breathing prior to her episode. She has no numbness, tingling, or weakness. She denies headache, dizziness, nausea, vomiting, or other associated symptoms. Patient states she had recent changes in her high blood pressure medications. She states she was previously on lisinopril 40 but they recently added hydrochlorothiazide 25 mg to it and this was done in the last week. She states she feels like she has been having more episodes of lightheadedness since this time. EMS reports hypotension. They started IV fluids en route. Related Data Home Medications ?Medication ?Instructions ?Recorded ?Confirmed lisinopril 10 1 tab PO DAILY High blood pr essure 07/25/20 01/06/24 mg-hydrochlorothiazide 12.5 mg tablet Previous Rx's ?Medication ?Instructions ?Recorded amoxicillin 875 mg tablet 875 mg PO Q12H #20 tabs 12/24 05/16 Allergies Allergy/AdvReac Type Severity Reaction Status Date / Time guaifenesin (From Mucinex) Allergy Unknown Verified 11/01/20 10:04 morphine Allergy itching Verified 11/01/20 10:04 [facility] Disclaimer: The information contained in this section may have been updated after the patient was seen, as this information can be updated by other users. 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 current occupational exposures/hazards: No caffeine: Yes Other Medical History Have you received the Flu Vaccine for this season: No Have you received the Pneumonia Vaccine: No ROS Obtained: Yes Systems reviewed as appropriate & no additional complaints except as documented Per HPI Physical Exam General General appearance: alert, in no apparent distress and obese Head Head exam: atraumatic and normocephalic Eye Eye exam: Present PERRL and EOMI ENT ENT exam: Present mucous membranes moist Neck Neck exam: Present normal inspection and full ROM Chest Chest inspection: Present symmetric chest wall rise Respiratory Respiratory exam: Present normal lung sounds bilaterally; Absent respiratory distress, wheezes or stridor Cardiovascular Cardiovascular exam: Present regular rate and normal rhythm Abdominal Exam Abdominal exam: Present soft; Absent distention or tenderness Extremities Exam Extremities exam: Present full ROM; Absent edema Neurological Exam Neurological exam: Present alert and oriented X3; Absent motor sensory deficit Psychiatric Psychiatric exam: Present normal affect and normal mood Skin Skin exam: Present warm and dry Medical Decision Making Medical Records Medical records reviewed: Yes I reviewed the patient's medical records. Screening: Per USPSTF and CDC recommendations, given the prevalence of disease in our region, it is our hospital?s policy to screen for HIV and viral Hepatitis for all patients aged 18 and over and those with ongoing risk factors. Chun Inquiry Pt receiving controlled substance: No Vital Signs: 10/15/24 00:29 10/15/24 01:00 10/15/24 01:01 Temperature 97.7 F Temperature Source Oral Pulse Rate 84 88 Pulse Rate [Left] 92 H Pulse Rate [Orthostatic Lying Right] Pulse Rate [Orthostatic Sitting] Pulse Rate [Orthostatic Standing] Respiratory Rate 16 Blood Pressure 94/53 L 87/51 L Blood Pressure [Orthostatic Lying Right Arm] Blood Pressure [Orthostatic Sitting Right Arm] Blood Pressure [Orthostatic Standing] Blood Pressure [Right Arm] 96/56 L Blood Pressure Mean [Right Arm] 69 Blood Pressure Source Blood Pressure Source [Right Arm] Automatic Cuff Blood Pressure Position 02 Sat by Pulse Oximetry 96 97 95 Oxygen Delivery Method Room Air 10/15/24 01:02 10/15/24 01:05 10/15/24 01:06 Temperature Temperature Source Pulse Rate 94 H 100 H 99 H Pulse Rate [Left] Pulse Rate [Orthostatic Lying Right] Pulse Rate [Orthostatic Sitting] Pulse Rate [Orthostatic Standing] Respiratory Rate Blood Pressure 97/51 L 76/52 L 79/48 L Blood Pressure [Orthostatic Lying Right Arm] Blood Pressure [Orthostatic Sitting Right Arm] Blood Pressure [Orthostatic Standing] Blood Pressure [Right Arm] Blood Pressure Mean [Right Arm] Blood Pressure Source Blood Pressure Source [Right Arm] Blood Pressure Position 02 Sat by Pulse Oximetry 96 97 97 Oxygen Delivery Method 10/15/24 01:09 10/15/24 01:31 10/15/24 02:04 Temperature Temperature Source Pulse Rate 82 79 Pulse Rate [Left] Pulse Rate [Orthostatic Lying Right] 85 Pulse Rate [Orthostatic Sitting] 95 H Pulse Rate [Orthostatic Standing] 99 H Respiratory Rate 19 Blood Pressure 99/61 L 103/67 L Blood Pressure [Orthostatic Lying Right Arm] 87/51 L Blood Pressure [Orthostatic Sitting Right Arm] 97/51 L Blood Pressure [Orthostatic Standing] 79/48 L Blood Pressure [Right Arm] Blood Pressure Mean [Right Arm] Blood Pressure Source Blood Pressure Source [Right Arm] Blood Pressure Position 02 Sat by Pulse Oximetry 98 97 Oxygen Delivery Method 10/15/24 02:31 10/15/24 02:45 10/15/24 02:58 Temperature Temperature Source Pulse Rate 86 76 76 Pulse Rate [Left] Pulse Rate [Orthostatic Lying Right] Pulse Rate [Orthostatic Sitting] Pulse Rate [Orthostatic Standing] Respiratory Rate 18 11 L 15 Blood Pressure 112/69 116/81 116/70 Blood Pressure [Orthostatic Lying Right Arm] Blood Pressure [Orthostatic Sitting Right Arm] Blood Pressure [Orthostatic Standing] Blood Pressure [Right Arm] Blood Pressure Mean [Right Arm] Blood Pressure Source Blood Pressure Source [Right Arm] Blood Pressure Position 02 Sat by Pulse Oximetry 97 100 100 Oxygen Delivery Method 10/15/24 03:01 10/15/24 03:03 10/15/24 03:39 Temperature 98.3 F Temperature Source Oral Pulse Rate 86 82 Pulse Rate [Left] Pulse Rate [Orthostatic Lying Right] Pulse Rate [Orthostatic Sitting] Pulse Rate [Orthostatic Standing] Respiratory Rate 12 16 Blood Pressure 111/73 116/70 Blood Pressure [Orthostatic Lying Right Arm] 116/81 Blood Pressure [Orthostatic Sitting Right Arm] 116/70 Blood Pressure [Orthostatic Standing] 111/73 Blood Pressure [Right Arm] Blood Pressure Mean [Right Arm] Blood Pressure Source Automatic Cuff Blood Pressure Source [Right Arm] Blood Pressure Position Sitting 02 Sat by Pulse Oximetry 100 Oxygen Delivery Method Room Air Lab Data Lab Results 10/15/24 02:00: WBC 6.9, RBC 4.85, Hgb 14.6, Hct 42.4, MCV 87.4, MCH 30.1, MCHC 34.4, RDW 13.2, Plt Count 223, MPV 11.3 H, Neut % (Auto) 63.1, Lymph % (Auto) 28.2, [place] % (Auto) 5.7, Eos % (Auto) 2.2, Baso % (Auto) 0.4, Neut # (Auto) 4.4, Lymph # (Auto) 1.9, [place] # (Auto) 0.4, Eos # (Auto) 0.2, Baso # (Auto) 0.0, PT 10.9, INR 0.98, D-Dimer 0.65 H, Sodium 135 L, Potassium 3.5, Chloride 101, C arbon Dioxide 21 L, Anion Gap 16.5 H, BUN 15, Creatinine 1.30 H, Estimated Creat Clear 109, Estimated GFR 46 L, Est GFR ( Amer) 56 L, Glucose 111 H, Calcium 8.9, Total Bilirubin 0.6, AST 35, ALT 30, Alkaline Phosphatase 65, Troponin I < 0.01, NT-Pro-B Natriuret Pep < 20.0, Total Protein 7.6, Albumin 4.4, Globulin 3.2, Albumin/Globulin Ratio 1.4 10/15/24 02:00 10/15/24 02:00 Orders (Tests/Meds): ED MEDICATIONS Discontinued Medications Generic Name Dose Route Start Last Admin Trade Name Freq PRN Reason Stop Dose Admin Aspirin 324 mg 10/15/24 00:38 10/15/24 00:40 Aspirin 81mg Chewable Tablet PO 10/15/24 00:39 324 mg ONCE ONE Administration Aspirin 324 mg 10/15/24 00:47 10/15/24 00:57 Aspirin 81mg Chewable Tablet PO 10/15/24 00:48 Not Given ONCE ONE Lactated Ringer's 1,000 mls @ 999 mls/hr 10/15/24 01:07 10/15/24 02:40 Lactated Ringer's 1000 Ml Bag IV 10/15/24 02:07 Infused .Q1H1M ONE Infusion ORDERS Category Date Time Status XR chest 2V Stat Exams 10/15/24 00:47 Completed BMP [Basic Metabolic Panel] Stat Lab 10/15/24 03:19 Ordered Complete Blood Count Auto Diff Stat Lab 10/15/24 02:00 Completed Comprehensive Metabolic Panel Stat Lab 10/15/24 02:00 Completed D-Dimer Stat Lab 10/15/24 02:00 Completed NT Pro Brain Natriuretic Pep. Stat Lab 10/15/24 02:00 Completed Prothrombin Time INR Stat Lab 10/15/24 02:00 Completed Troponin I Q3H Lab 10/15/24 04:00 Ordered Troponin I Q3H Lab 10/15/24 07:00 Ordered Troponin I Stat Lab 10/15/24 02:00 Completed Medical Decision Narrative: In summary, this 34-year-old female with history of hypertension, uterine fibroids presents to the emergency department today with syncope concerned about recent blood pressure medication changes. On initial evaluation patient is borderline hypotensive but otherwise hemodynamically stable, afebrile, overall well-appearing with no acute abnormality on cardiopulmonary exam, no peripheral edema, neuroexam normal.. Differential diagnosis includes but is not limited to orthostatic hypotension, medication side effect, dehydration, electrolyte abnormality, considered the possibility of ACS, PE, arrhythmia, among others though I have lower suspicion for acute cardiac etiology causing her syncopal episode. Based on these concerns, I ordered orthostatic vitals, hematologic and serum labs, cardiac workup. ECG personally interpreted demonstrates normal sinus rhythm, rate 94, normal axis, normal NM and QTc, no STEMI, no WPW, no Brugada, no HCM, no prolonged QT. No arrhythmia provoking abnormalities appreciated. Patient received in total 2 L of IV fluids for treatment. Aspirin was also administered upon arrival. Patient has obvious orthostatic hypotension with tachycardia and profound hypotension especially from sitting to standing. Aggressive fluid resuscitation is ideal for her. Labs personally reviewed demonstrate no leukocytosis or anemia, PT/INR normal, D-dimer 0.65, by years criteria PE is excluded. CMP demonstrates evidence of mild REUBEN, creatinine 1.3 up from 0.7. I am concerned that patient's increased blood pressure medications are causing dehydration, hypotension, and poor kidney function. Initial troponin undetectably low since her 0.01, BNP undetectable. I do not believe serial troponins are indicated since patient had no chest pain or ischemic abnormalities on her EKG. Chest x-ray personally turbid does not demonstrate acute thoracic abnormality, see radiology read for final interpretation. I wanted to repeat BMP to recheck creatinine after 2 L of IV fluids had finished. On reassessment she is feeling significantly improved, repeat orthostatics are normal with no hypotension or tachycardia. She feels very well and would like to be discharged. I recommended she stay for repeat BMP to recheck her kidney function and explained to her that it was slightly depressed likely related to changes in her blood pressure and blood pressure medications. She is refusing this at this time and wants to be discharged which I believe is reasonable since she states she can see her primary care doctor on Thursday and will make an appointment with them. I impressed upon her the importance of this. I gave her instructions to stop the new blood pressure medication until she has follow-up with her primary care. I also instructed her on symptomatic monitoring and management, the importance of close follow-up, and strict return precautions for the ER. She indicated understanding and the patient was discharged in stable condition. Critical Care Critical Care Time Critical Care Time: No
--- NOTE | 2024-10-15 03:40 | PC.NURSE ---
Pt refused repeat labs and wants to go home.
== END 2024-10-15 03:46 | disposition home or self-care (01) ==
PROVIDERS: Emergency Provider Emergency Medicine
DX: N17.9 Acute kidney failure, unspecified (principal); I95.1 Orthostatic hypotension; E86.0 Dehydration; T50.2X5A Adverse effect of carbonic-anhydrase inhibitors, benzothiadiazides and other diuretics, initial encounter; I10 Essential (primary) hypertension
CPT/HCPCS: 71046; 80053; 83880; 84484; 85025; 85378; 85610; 93005; 96360; 99285; J7120

== ENCOUNTER 2024-10-27 17:40 | Outpatient (CLI) | payer OTHER, SELFPAY ==
--- OUTSIDE RECORDS SUMMARY | 2024-10-31 09:24 | XMS_ITS | Clinical Summary ---
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
== END 2024-10-27 23:59 ==
LOC: LAB.DROPOF 10-31 09:13
PROVIDERS: PCP Nurse Practitioner; Visit Provider Nurse Practitioner
DX: Z11.3 Encounter for screening for infections with a predominantly sexual mode of transmission (principal)
CPT/HCPCS: 87491; 87591; 87661

== ENCOUNTER 2024-12-10 18:24 | Emergency (ER) | payer OTHER, SELFPAY ==
[2024-12-10 18:27] VITALS: BP 124/85; PULSE 92; RESP 20; TEMP 36.6; O2SAT 100; BMI 38.0
--- OUTSIDE RECORDS SUMMARY | 2024-12-10 18:33 | XMS_ITS | Continuity of Care Document ---
Author Organization [place] - [facility] - [place] & [place], [facility] Address [address] [place] [address] Care Team Providers Care Carpet Binder Name Role Phone PARESH DENIS Primary Care Provider Assessment Encounter Date Assessment Date Assessment LastModified by Organization Details LastModified Time 11/16/2024 11/16/2024 ASSESSMENT: - Hypertension, uncontrolled. - Hyperlipidemia. PLAN: The patient's blood pressure remains elevated despite taking losartan. The plan is to switch her to a combination medication containing olmesartan and amlodipine, which is expected to provide better blood pressure control. This medication is covered by her insurance at no cost and will be taken once daily in the morning. She is advised to monitor her blood pressure at work and call the clinic if it remains elevated after starting the new medication. A dose of clonidine will be administered during the visit to help lower her blood pressure acutely. Her blood pressure will be rechecked in 10-15 minutes. Given her elevated blood pressure and prior cholesterol screening results, she will also be started on a cholesterol medication to reduce her cardiovascular risk. Her calculated 10-year risk of heart attack or stroke is 20%, which can be reduced to 0.3% with cholesterol-lower ing therapy. Lifestyle modifications, including eating a healthy diet, reducing fried and fatty foods, limiting high-salt foods, exercising, and maintaining a healthy weight, are encouraged to support blood pressure and cholesterol management. Smoking cessation is strongly recommended. Please note this report was created using voice recognition/text compilation software documentation services during the encounter with the patient. A total of thirty minutes was spent in regard to this patient's visit reviewing labs and/or imaging, reviewing the patients records, conducting a physical examination, preparing the treatment plan, and discussing the treatment plan with its risk and benefits with the patient today. All questions have been answered. [email or web address] Not available 11/16/2024 15:25:14 Plan of Treatment Reminders Order Date Submit Date Provider Last Modified By Organization Details Last Modified Time Details Appointments OV EST 20 2024 11:40A M Paresh Denis MD Not available Not available Not available Lab None recorded. Referral None recorded. Procedures None recorded. Surgeries None recorded. Imaging None recorded. Medication Orders atorvasta tin 20 mg tablet 2024 025 [facility]armacy #[id number], [address] [place], [address], 11/16/2024 14:43:18 amlodipin e 5 mg-olmesa rtan 40 mg tablet 2024 025 [facility]/Pharmacy #[id number], [address] [place], [address], 11/16/2024 14:43:19 Patient TargetsNo targets recorded. Patient InstructionsNo instructions recorded. 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 None Reported. Results Created Date Observation Date Name Description Value Unit Range Abnormal Flag Note LastModifiedBy Organization Detail LastModifiedTime 10/18/1910/18/2024 CMP14 +EGFR glucose 89 mg/dL 70-99 normal Not Available [facility] ([facility]) [address] [place], [address], 10/18/2024 06:37:29 10/18/1910/18/2024 CMP14 +EGFR BUN 10 mg/dL 6-20 normal Not Available [facility] ([facility]) [address] [place], [address], 10/18/2024 06:37:29 10/18/1910/18/2024 CMP14 +EGFR creatinine 0.97 mg/dL 0.57-1 .00 normal Not Available [facility] ([facility]) [address] [place], [address], 10/18/2024 06:37:29 10/18/1910/18/2024 CMP14 +EGFR eGFR 78 mL/mi n/1.7 3 >59 normal Not Available [facility] ([facility]) [address] [place], [address], 10/18/2024 06:37:29 10/18/1910/18/2024 CMP14 +EGFR BUN/creatini ne ratio 10 9-23 normal Not Available [facility] ([facility]) [address] [facility], [place], [address], 10/18/2024 06:37:29 10/18/1910/18/2024 CMP14 +EGFR sodium 139 mmol/ L 134-14 4 normal Not Available [facility] ([facility]) [address] [place], [address], 10/18/2024 06:37:29 10/18/1910/18/2024 CMP14 +EGFR potassium 4.6 mmol/ L 3.5-5. 2 normal Not Available [facility] ([facility]) [address] [place], [address], 10/18/2024 06:37:29 10/18/1910/18/2024 CMP14 +EGFR chloride 103 mmol/ L 96-106 normal Not Available [facility] ([facility]) [address] [place], [address], 10/18/2024 06:37:29 10/18/1910/18/2024 CMP14 +EGFR carbon dioxide, total 20 mmol/ L 20-29 normal Not Available [facility] ([facility]) [address] [place], [address], 10/18/2024 06:37:29 10/18/1910/18/2024 CMP14 +EGFR calcium 9.4 mg/dL 8.7-10 .2 normal Not Available [facility] ([facility]) [address] [place], [address], 10/18/2024 06:37:29 10/18/1910/18/2024 CMP14 +EGFR protein, total 6.8 g/dL 6.0-8. 5 normal Not Available [facility] ([facility]) [address] [place], [address], 10/18/2024 06:37:29 10/18/1910/18/2024 CMP14 +EGFR albumin 4.3 g/dL 3.9-4. 9 normal Not Available [facility] ([facility]) [address] [place], [address], 10/18/2024 06:37:29 10/18/1910/18/2024 CMP14 +EGFR globulin, total 2.5 g/dL 1.5-4. 5 Not Available [facility] ([facility]) [address] [place], [address], 10/18/2024 06:37:29 10/18/1910/18/2024 CMP14 +EGFR bilirubin, total 0.3 mg/dL 0.0-1. 2 normal Not Available [facility] ([facility]) [address] [place], [address], 10/18/2024 06:37:29 10/18/1910/18/2024 CMP14 +EGFR alkaline phosphatase 72 IU/L 44-121 normal Not Available [facility] ([facility]) [address] [place], [address], 10/18/2024 06:37:29 10/18/1910/18/2024 CMP14 +EGFR AST (SGOT) 18 IU/L 0-40 normal Not Available [facility] ([facility]) [address] [place], [address], 10/18/2024 06:37:29 10/18/1910/18/2024 CMP14 +EGFR ALT (SGPT) 21 IU/L 0-32 normal Not Available [facility] ([facility]) [address] [place], [address], 10/18/2024 06:37:29 10/18/1910/18/2024 TSH+F REE T4 TSH 0.617 uIU/m L 0.450- 4.500 normal Not Available [facility] ([facility]) [address] [place], [address], 10/18/2024 06:37:30 10/18/1910/18/2024 TSH+F REE T4 T4,free(dire ct) 1.03 NG/dL 0.82-1 .77 normal Not Available [facility] ([facility]) [address] [place], [address], 10/18/2024 06:37:30 10/18/1910/18/2024 CBC WITH DIFFE RENTI AL/PL ATELE T WBC 6.4 x10e3 /uL 3.4-10 .8 normal Not Available [facility] ([facility]) [address] [place], [address], 10/18/2024 06:37:31 10/18/1910/18/2024 CBC WITH DIFFE RENTI AL/PL ATELE T RBC 4.84 x10e6 /uL 3.77-5 .28 normal Not Available [facility] ([facility]) [address] [place], [address], 10/18/2024 06:37:31 10/18/1910/18/2024 CBC WITH DIFFE RENTI AL/PL ATELE T hemoglobin 14.2 g/dL 11.1-1 5.9 normal Not Available [facility] ([facility]) [address] [place], [address], 10/18/2024 06:37:31 10/18/1910/18/2024 CBC WITH DIFFE RENTI AL/PL ATELE T hematocrit 44.2 % 34.0-4 6.6 normal Not Available [facility] ([facility]) [address] [place], [address], 10/18/2024 06:37:31 10/18/1910/18/2024 CBC WITH DIFFE RENTI AL/PL ATELE T MCV 91 fL 79-97 normal Not Available [facility] ([facility]) [address] [place], [address], 10/18/2024 06:37:31 10/18/1910/18/2024 CBC WITH DIFFE RENTI AL/PL ATELE T MCH 29.3 pg 26.6-3 3.0 normal Not Available [facility] ([facility]) [address] [place], [address], 10/18/2024 06:37:31 10/18/1910/18/2024 CBC WITH DIFFE RENTI AL/PL ATELE T MCHC 32.1 g/dL 31.5-3 5.7 normal Not Available [facility] ([facility]) [address] [place], [address], 10/18/2024 06:37:31 10/18/1910/18/2024 CBC WITH DIFFE RENTI AL/PL ATELE T RDW 13.0 % 11.7-1 5.4 Not Available [facility] ([facility]) [address] [place], [address], 10/18/2024 06:37:31 10/18/1910/18/2024 CBC WITH DIFFE RENTI AL/PL ATELE T platelets 224 x10e3 /uL 150-45 0 normal Not Available [facility] ([facility]) [address] [place], [address], 10/18/2024 06:37:31 10/18/1910/18/2024 CBC WITH DIFFE RENTI AL/PL ATELE T neutrophils 50 % not estab. normal Not Available [facility] ([facility]) [address] [place], [address], 10/18/2024 06:37:31 10/18/1910/18/2024 CBC WITH DIFFE RENTI AL/PL ATELE T lymphs 39 % not estab. normal Not Available [facility] ([facility]) [address] [facility], [place], [address], 10/18/2024 06:37:31 10/18/1910/18/2024 CBC WITH DIFFE RENTI AL/PL ATELE T monocytes 6 % not estab. normal Not Available [facility] ([facility]) [address] [facility], [place], [address], 10/18/2024 06:37:31 10/18/1910/18/2024 CBC WITH DIFFE RENTI AL/PL ATELE T eos 4 % not estab. normal Not Available [facility] ([facility]) [address] [facility], [place], [address], 10/18/2024 06:37:31 10/18/1910/18/2024 CBC WITH DIFFE RENTI AL/PL ATELE T basos 1 % not estab. normal Not Available [facility] ([facility]) [address] [place], [address], 10/18/2024 06:37:31 10/18/1910/18/2024 CBC WITH DIFFE RENTI AL/PL ATELE T immature cells GAS ENGINEER Not Available [facility] ([facility]) [address] [place], [address], 10/18/2024 06:37:31 10/18/1910/18/2024 CBC WITH DIFFE RENTI AL/PL ATELE T neutrophils (absolute) 3.2 x10e3 /uL 1.4-7. 0 normal Not Available [facility] ([facility]) [address] [place], [address], 10/18/2024 06:37:31 10/18/1910/18/2024 CBC WITH DIFFE RENTI AL/PL ATELE T lymphs (absolute) 2.5 x10e3 /uL 0.7-3. 1 normal Not Available [facility] ([facility]) [address] [facility], [place], [address], 10/18/2024 06:37:31 10/18/1910/18/2024 CBC WITH DIFFE RENTI AL/PL ATELE T monocytes(ab solute) 0.4 x10e3 /uL 0.1-0. 9 normal Not Available [facility] ([facility]) [address] [facility], [place], [address], 10/18/2024 06:37:31 10/18/1910/18/2024 CBC WITH DIFFE RENTI AL/PL ATELE T eos (absolute) 0.3 x10e3 /uL 0.0-0. 4 normal Not Available [facility] ([facility]) [address] [facility], [place], [address], 10/18/2024 06:37:31 10/18/1910/18/2024 CBC WITH DIFFE RENTI AL/PL ATELE T baso (absolute) 0.1 x10e3 /uL 0.0-0. 2 normal Not Available [facility] ([facility]) [address] [facility], [place], [address], 10/18/2024 06:37:31 10/18/1910/18/2024 CBC WITH DIFFE RENTI AL/PL ATELE T immature granulocytes 0 % not estab. Not Available [facility] ([facility]) [address] [facility], [place], [address], 10/18/2024 06:37:31 10/18/1910/18/2024 CBC WITH DIFFE RENTI AL/PL ATELE T immature grans (abs) 0.0 x10e3 /uL 0.0-0. 1 Not Available [facility] ([facility]) [address] [facility], [place], [address], 10/18/2024 06:37:31 10/18/1910/18/2024 CBC WITH DIFFE RENTI AL/PL ATELE T NRBC GAS ENGINEER Not Available [facility] ([facility]) [address] [facility], [place], [address], 10/18/2024 06:37:31 10/18/1910/18/2024 CBC WITH DIFFE RENTI AL/PL ATELE T hematology comments: GAS ENGINEER Not Available [facility] ([facility]) [address] [facility], [place], [address], 10/18/2024 06:37:31 Result Notes None recorded. Problems Name Problem SNOMED Code Status Onset Date Resolution Date Notes Provider Name and Address Organization Details Recorded Time Paresthesia 40154410 Active Flora Fleharty null, [place] - [facility] [place] 2 12:29:52 Goiter 9870755 Active Flora Fleharty null, [place] - [facility] [place] 2 12:29:52 Hypertensive disorder 27140430 Active Flora Fleharty null, [place] - [facility] [place] 2 12:29:52 Degeneration of lumbosacral intervertebra l disc 54898047 Active Flora Fleharty null, [place] - [facility] & [place] 2 12:29:52 Spasm 68292977 Active 2022 Paresh Denis MD [address], [place], [address] , [place] - [facility] & [place] 3 16:25:25 Chronic headache disorder 759575524 Active 2022 Paresh Denis MD [address], [place], [address] , [place] - [facility] & [place] 3 16:25:28 Seasonal allergy 240088965 Active 2022 Paresh Denis MD [address] [place] [address], [place], [address] , LAURA Deutsch [facility] & [place] 3 16:25:32 Problem Notes None recorded. Procedures Surgical History Date Name Laterality Status Provider Name and Address Organization Details Recorded Time 02/23/19 18 Date of Last Pap Smear completed Taniya SANCHEZ - [facility] & [place] 06/12/2022 22:00:07 section completed Taniya SANCHEZ - [facility] & [place] 06/12/2022 21:55:12 Total Hysterectomy completed Kim Deutsch [facility] & [place] 09/29/2022 15:47:28 ligation of fallopian tube completed Mroena Deutsch [facility] & [place] 12/01/2024 07:02:45 Imaging Results None recorded. Procedure Notes None recorded. 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 Serial Number Lot Number Status Provider Name and Address Organization Details Recorded Time IUD FDA Y Morena willoughby, LAURA - [facility] & [place] 09/22/2024 07:07:14 Allergies Allergen ID Allergen Name Allergen Category Reaction Reaction Severity Criticality Documentation Date Start Date Code Code System Note Provider Name and Address Organization Details Recorded Time 79384 morphine medicatio n Not available Not available Not available 12/24/2021 7052 RxNorm Flora willoughby, LAURA - MALIKNT [facility] & [place] 2 12:29:52 83641 guaifenes in medicatio n Not available Not available Not available 12/24/2021 5032 RxNorm Flora willoughby, [place] - [facility] & [place] 2 12:29:52 Medications Name Sig Start Date Stop Date Status Note LastModified by Organization Details LastModified Time losartan 50 mg tablet Take 1 tablet every day by oral route. 11/16 completed Not Available Not Available Not Available cyclobenza gold 10 mg tablet 1 {tablet_ at_bedti me_as_ne eded} by oral route. 09/28 completed Not Available Not Available Not Available buspirone 5 mg tablet Take 1 tablet twice a day by oral route for 90 days. 10/17 completed Not Available Not Available Not Available atorvastat in 20 mg tablet Take 1 tablet every day by oral route. 2024 active Not Available Not Available Not Avai lable tizanidine 2 mg tablet 1 {tablet_ as_neede d} by oral route. 09/28 completed Not Available Not Available Not Available lisinopril 20 mg-hydroch lorothiazi de 12.5 mg tablet TAKE 1 TABLET BY MOUTH EVERY DAY 10/04 completed Not Available Not Available Not Available tizanidine 4 mg tablet TAKE 1 TABLET BY MOUTH EVERY 6 HOURS 10/17 completed Not Available Not Available Not Available hydrocodon e 5 mg-acetami nophen 325 mg tablet TAKE 1 TABLET BY MOUTH EVERY 6 HOURS 02/04 completed Not Available Not Available Not Available minocyclin e 100 mg capsule TAKE ONE CAPSULE BY MOUTH TWICE DAILY -- FINISH ALL MEDICINE -- 09/28 completed Not Available Not Available Not Available Medrol (Ezio) 4 mg tablets in a dose pack Take 1 tablet every day by oral route for 6 days. 10/31 completed Not Available Not Available Not Available metronidaz ole 500 mg tablet TAKE 1 TABLET BY MOUTH TWICE A DAY FOR 7 DAYS 02/04 completed Not Available Not Available Not Available amitriptyl ine 25 mg tablet TAKE 1 TABLET BY MOUTH EVERY DAY 2024 active Not Available Not Available Not Avai lable hydrochlor othiazide 25 mg tablet Take 1 tablet every day by oral route for 90 days. 10/17 completed Not Available Not Available Not Available lisinopril 40 mg tablet TAKE 1 TABLET BY MOUTH EVERY DAY 10/17 completed Not Available Not Available Not Available loratadine 10 mg tablet Take 1 tablet every day by oral route for 90 days. 10/04 completed Not Available Not Available Not Available Lexapro 10 mg tablet Take 1 tablet every day by oral route. 11/16 completed Not Available Not Available Not Available tizanidine active Pt unsure of mg takes po daily Not Available Not Available Not Available amlodipine 5 mg-olmesar harris 40 mg tablet Take 1 tablet every day by oral route for 30 days. 2024 active Not Available Not Available Not Avai lable Vitals Date Recorded Systolic And Diastolic Provider Name and Address Organization Details Last Updated DateTime 11/16/2024 146/106 mm[Hg] Kate Chappell [facility] & [place] 11/16/2024 14:43:41 Date Recorded Body height Body mass index (BMI) Body weight Body temperature Oxygen saturation Oxygen saturation in Arterial blood by Pulse oximetry Heart rate Pain severity - 0-10 verbal numeric rating [Score] - Reported Systolic And Diastolic Systolic And Diastolic Provider Name and Address Organization Details Last Updated DateTime 172.72 cm 38.6 kg/m2 242942. 16 g 97.4 [degF] 99 % 99 % 96 /min 4 172/110 mm[Hg] 185/140 mm[Hg] Mag mike [facility] & [place] 13:36:46 Social History Question Answer Notes LastModified by Organizat ion Details LastModified Time Tobacco Smoking Status Current Every Day Smoker Kim Soto [facility] & [place] 09/29/2022 15:47:03 Do You Have An Advance Directive? No [email or web address] Information not available 09/29/2022 Are You Blind Or Do You Have Difficulty Seeing? Yes Glasses [email or web address] Information not available 09/29/2022 Is Blood Transfusion Acceptable In An Emergency? Yes [email or web address] Information not available 09/29/2022 What Is Your Level Of Caffeine Consumption? Heavy [email or web address] Information not available 09/29/2022 In The 14 Days Before Symptom Onset, Have You Had Close Contact With A Laboratory-confir med COVID-19 While That Case Was Ill? No [email or web address] Information not available 09/29/2022 In The 14 Days Before Symptom Onset, Have You Had Close Contact With A Person Who Is Under Investigation For COVID-19 While That Person Was Ill? No [email or web address] Information not available 09/29/2022 Have You Been To An Area Known To Be High Risk For COVID-19? No [email or web address] Information not available 09/29/2022 Are You Deaf Or Do You Have Serious Difficulty Hearing? No [email or web address] Information not available 09/29/2022 What Type Of Diet Are You Following? REGULAR [email or web address] Information not available 09/29/2022 Which Illicit Or Recreational Drugs Have You Used? [place]by [place] [id number] Information not available 09/29/2022 Have You Processed Blood Or Body Fluids From An Ebola Virus Disease Patient Without Appropriate PPE? No [email or web address] Information not available 09/29/2022 Do You Reside In Or Have You Traveled To An Area Where Ebola Virus Transmission Is Active? No [email or web address] Information not available 09/29/2022 Have There Been Any Changes To Your Family Or Social Situation? No [email or web address] Information no t available 09/29/2022 What Is The Fluoride Status Of Your Home? Fluoridated [email or web address] Information not available 09/29/2022 Are There Any Guns Present In Your Home? No [email or web address] Information not available 09/29/2022 Have You Recently Or Are You Planning To Travel To An Area With Zika Virus? No [email or web address] Information not available 09/29/2022 Do You Use Insect Repellent Routinely? Yes [email or web address] Information not available 09/29/2022 What Was The Date Of Your Most Recent Tobacco Screening? 09/28/2022 [email or web address] Information not available 09/29/2022 What Is Your Current Pack Years? 10-19packyears [email or web address] Information not available 09/29/2022 Do You Have Any Pets? Yes [email or web address] Information not available 09/29/2022 Do You Use Your Seat Belt Or Car Seat Routinely? Yes Information not available 09/29/2022 Do You Have Smoke And Carbon Monoxide Detectors In Your Home? Yes [email or web address] Information not available 09/29/2022 At What Age Did You Start Smoking Tobacco? 17 [email or web address] Information not available 09/29/2022 Are You Passively Exposed To Smoke? Yes [email or web address] Information no t available 09/29/2022 How Much Tobacco Do You Smoke? 0.5 PPD [email or web address] Information not available 09/29/2022 Do You Use Sunscreen Routinely? Yes [email or web address] Information not available 09/29/2022 How Many Years Have You Smoked Tobacco? 10 [email or web address] Information not available 09/29/2022 Have You Used IV Drugs? No [email or web address] Information not available 09/29/2022 Do You Have Difficulty Walking Or Climbing Stairs? No [email or web address] Information not available 09/29/2022 Are You Currently In School? No Information not available 09/29/2022 Sex: Female Functional Status Question Answer Note LastModified by Organizat ion Details LastModified Time Do you use any illicit or recreational drugs? Yes [email or web address] Information not available 09/29/2022 Do you or have you ever used any other forms of tobacco or nicotine? No [email or web address] Information not available 09/29/2022 What is your level of alcohol consumption? None [email or web address] Information not available 09/29/2022 Do you or have you ever used smokeless tobacco? Never used smokeless tobacco tufjzsrux87 Information not available 09/29/2022 Are you currently employed? Yes [email or web address] Information not available 09/29/2022 Do you have transportation difficulties? No dckuejgjx71 Information not available 09/29/2022 Are you able to walk independently without assistance or assistive devices? YESWOREST [email or web address] Information not available 09/29/2022 Do you have difficulty doing errands alone? No [email or web address] Information not available 09/29/2022 Are you able to care for yourself independently? Yes [email or web address] Information not available 09/29/2022 Do you have difficulty dressing, bathing, grooming, or toileting? No [email or web address] Information not available 09/29/2022 What is your exercise level? Moderate [email or web address] Information not available 09/29/2022 Mental Status Question Answer Note LastModified by Organizat ion Details LastModified Time Do you feel stressed (tense, restless, nervous, or anxious, or unable to sleep at night)? CX11673-5 [email or web address] Information not available 09/29/2022 Do you have difficulty concentrating, remembering or making decisions? No Information no t available 09/29/2022 Family History Relationship Description Onset Age of this Age Resolved Age Notes LastModified by Organization Details LastModified Time Father Cerebrovascu lar accident [email or web address] Not available 21:58:27 Father Heart disease [email or web address] Not available 2022 21:58:57 Daughter Alive Not availab le 12/29/2023 14:07:59 Son Alive [email or web address] Not available 12/29/2023 14:07:59 Medical History Condition [...] mRNA, LNP-S, PF, 30 mcg/0.3 mL dose 1 completed Paresh Denis MD [address] [facility] [id number] [place] [address] [facility] & [place] 09/29/2022 16:17:21 COVID-19, mRNA, LNP-S, PF, 30 mcg/0.3 mL dose 1 [place] [address] [place] [address], [place], [address], [place] [facility] & [place] 09/29/2022 16:17:22 Hep B, adolescent or pediatric 0 completed Not Available [facility] 11/16/2024 13:15:00 Hep B, adolescent or pediatric 0 completed Not Available [facility] 11/16/2024 13:15:00 Hep B, adolescent or pediatric 1 completed Not Available [facility] 11/16/2024 13:15:00 Td (adult), 2 Lf tetanus toxoid, preservative free, adsorbed 5 completed Not Available [facility] 11/16/2024 13:15:00 Past Encounters Encounter ID Performer Location Encounter Start Date Encounter Closed Date Diagnosis/Indication Diagnosis SNOMED-CT Code Diagnosis ICD10 Code Diagnosis IMO Codes Diagnosis Note [id number] Paresh Denis MD [facility] [address] [address] 11/16/2024 13:13:59 11/17/2024 08:59:29 Hypertensive disorder 29209380 I10 Mixed hyperlipidemia 267 115402 E78.2 11789 [id number] MD Amina [place] [address] 10/17/2024 13:30:01 10/17/2024 14:55:52 Hypertensive disorder 48152429 I10 Goiter 1929950 E04.9 Acute kidney injury 1466 9001 N17.9 714366 Adjustment disorder with depressed mood 24248650 F43.21 41900 Pain in left thumb 49850 55667 618212 M79.645 [id number] Health Concerns Section Related Observation LastModified by Organization Detai ls LastModified Time None Recorded Concern Status LastModified by Organization Details LastModified Time None Recorded Payers Encounter Date Sequence Insurance Name Policy Number Policy Ordoñez Covered Member ID Ordoñez Member ID Guarantor Name 11/16/[address] [facility] (MEDICAID REPLACEMENT - HMO) [id number] Cristiane Whatley [id number] Cristiane Whatley Notes Date Note Type Note Provider Name and Address Organization Details Recorded Time 11/16/2024 text/html Cristiane Whatley is a 34-year-old female who presents for a medication follow-up. She reports that her blood pressure remains elevated despite taking losartan. She checks her blood pressure at work, where it consistently runs high, though not extremely high. She previously took a combination of lisinopril and hydrochlorothiazide, which resulted in better blood pressure control, but discontinued it due to frequent urination. She expresses willingness to resume medications that include a diuretic if necessary to achieve better blood pressure control. She has a history of high cholesterol, with screening performed in January. She has never been on cholesterol medication. She is a smoker and inquires about quitting. Her family history includes hypertension and cardiovascular disease, with her grandmother experiencing a heart attack at age 65 and multiple relatives on her grandmother's side taking blood pressure medications. Her mother does not have hypertension. She expresses concern about the potential damage to her heart due to uncontrolled blood pressure. She was last seen in September, at which time her blood work was normal, including thyroid function, blood glucose, kidney function, and liver tests. Her blood glucose level was 89, which is within the normal range. Cholesterol levels were not checked during the September visit but were reviewed from prior testing. Paresh Denis MD [address], [place], [address], [facility] - [place] & [place] 11/16/2024 15:25:35 OBGyn Episode No OBEpisode recorded.
--- OUTSIDE RECORDS SUMMARY | 2024-12-10 18:34 | XMS_ITS | Data Portability ---
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 Will add HCTZ for HTN. She has follow up next month with Dr. Denis. Advised to go to the ER if she develops any chest pain, dyspnea or cva symptoms. Advised to return for nurse visit later this week for BP check. [email or web address] Not available 10/04/2024 15:50:25 10/17/2024 10/17/2024 ASSESSMENT: - Hypertension, uncontrolled. - Emotional distress related to separation. - Thumb pain, possible tendonitis. PLAN: Restart blood pressure management with losartan, a different class of medication, as the sole blood pressure medication for now. Avoid restarting hydrochlorothiazide due to concerns about low blood pressure and the passing-out episode. Initiate a daily anxiety/mood medication to address emotional distress related to the separation. Discussed that these medications take time to become effective and are not an immediate solution for emotional symptoms. Buspirone will not be restarted due to concerns about its potential contribution to the passing-out episode. Order blood work to follow up on kidney function, as it was noted to be low during the emergency room visit. For thumb pain and swelling, prescribe a course of steroids to reduce inflammation and refer the patient to an manufacturing specialist for further evaluation. Discussed potential interventions such as braces or injections but noted that surgery is not indicated at this time. Patient is advised to return for close follow-up on 10/27 to monitor blood pressure and overall progress. Please note this report was created using voice recognition/text compilation software documentation services during the encounter with the patient. [email or web address] Not available 10/17/2024 14:38:53 11/16/2024 11/16/2024 ASSESSMENT: - Hypertension, uncontrolled. - [...] which can be reduced to 0.3% with cholesterol-lowering therapy. Lifestyle modifications, including eating a healthy [...] patient today. All questions have been answered. [email or web address] Not available 11/16/2024 15:25:14 Plan of Treatment Reminders Order Date Submit Date Provider Last Modified By Organization Details Last Modified Time Details Appointments OV EST 20 2024 11:40A M Paresh Denis MD Not available Not available Not available Lab TSH + free T4, serum 2024 025 [place] [facility], [address], [address], [place], [address], 10/18/2024 06:37:30 CBC w/ auto diff 2024 025 [place] [facility], [address], [address], [place], [address], 10/18/2024 06:37:31 CMP, serum or plasma 2024 025 [facility], [address], [address], [place], [address], 10/18/2024 06:37:29 TSH + free T4, serum 2023 024 [place] [facility], [address], [address], [place], [address], 02/08/2024 04:23:48 CBC w/ auto diff 2023 024 [place] [facility], [address], [address], [place], [address], 02/08/2024 04:23:49 CMP, serum or plasma 2023 024 [facility] [facility], [address], [address], [place], [address], 02/08/2024 04:23:52 infectio us disease panel 2023 024 [place] [facility], [address], [place], [address], 02/06/2024 13:30:55 lipid panel, serum 2023 024 [place] [facility], [address], [address], [place], [address], 02/08/2024 04:23:50 Hepatiti s C IgG Ab, qual, serum 2023 024 [place] [facility], [address], [address], [place], [address], 02/08/2024 04:23:51 HIV 1 + 2, meaningf ul use set 2023 024 [facility], [address], [address], [place], [address], 02/08/2024 04:23:51 Referral orthoped ic surgeon referral 2024 025 rosemarie [facility], [address] [facility], [place], [address], 11/01/2024 09:16:17 ophthalm ologist referral 2022 023 rosemarie Cazares MD, [address], [facility] [[email or web address] [address], [place], [address], 02/04/2023 16:06:39 Procedures None recorded . Surgeries None recorded . Imaging None recorded . Medication Orders atorvast atin [address] [facility], [address] [place] [address], [address], 11/16/2024 14:43:18 amlodipi ne 5 mg-olmes kaylyn 40 mg tablet 2024 025 [facility] [address] [place] [address], [address], 11/16/2024 14:43:19 losartan 50 mg tablet 2024 025 [facility] [address] [place] [address], [address], 11/16/2024 14:02:09 Medrol (Ezio) 4 mg tablets in a dose pack 2024 025 [facility] [address] [place] [address], [address], 10/31/2024 05:03:07 Lexapro 10 mg tablet 2024 025 [facility] [address] [place] [address], [address], 11/16/2024 13:30:41 hydrochl orothiaz laurie 25 mg tablet 2024 025 [address] [address] [place] [address], [address], 10/17/2024 14:40:25 buspiron e 5 mg tablet 2024 025 [facility] [address] [place] [address], [address], 10/17/2024 13:52:01 lisinopr il 40 mg tablet 2023 025 [address] [address] [place] [address], [address], 10/17/2024 14:40:35 tizanidi ne 4 mg tablet 2023 025 [facility] [address] [place] [address], [address], 10/17/2024 13:52:06 loratadi ne 10 mg tablet 2023 025 [facility] [address] [place] [address], [address], 10/04/2024 13:40:26 amitript yline 25 mg tablet 2023 025 [address] [address] [place] [address], [address], 10/17/2024 14:40:21 loratadi ne 10 mg tablet 2022 [facility]23 [facility] [address] [place] [address], [address], 10/04/2024 13:40:12 lisinopr il 20 mg-hydro chloroth iazide 12.5 mg tablet 2022 023 [email or web address], [address] [place], [address], 10/04/2024 13:40:08 tizanidi ne 4 mg tablet 2022 023 [email or web address] [facility], [address] [place], [address], 10/17/2024 13:51:58 Patient TargetsNo targets recorded. Patient InstructionsNo instructions recorded. 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 for Ophthalmic examination and evaluation Referring Physician: Paresh Denis, Internal Medicine, Encounter Date: 09/29/2022 Orthopedic Surgeon Referral for Pain in left thumb Referring Physician: Paresh Denis, Internal Medicine, Encounter Date: 10/17/2024 Results Created Date Observation Date Name Description Value Unit Range Abnormal Flag Note LastModifiedBy Organization Detail LastModifiedTime 02/05/2002/06/2024 CMP14 +EGFR glucose 84 mg/dL 70-99 normal Not Available [facility] ([facility]) [address] [facility], [place], [address], 02/06/2024 06:38:48 02/05/2002/06/2024 CMP14 +EGFR BUN 6 mg/dL 6-20 normal Not Available [facility] ([facility]) [address] [place], [address], 02/06/2024 06:38:48 02/05/20 24 02/06/2024 CMP14 +EGFR creatinine 0.93 mg/dL 0.57-1 .00 normal Not Available [facility] ([facility]) [address] [facility], [place], [address], 02/06/2024 06:38:48 02/05/2002/06/2024 CMP14 +EGFR eGFR 82 mL/mi n/1.7 3 >59 normal Not Available [facility] ([facility]) [address] [place], [address], 02/06/2024 06:38:48 02/05/20 24 02/06/2024 CMP14 +EGFR BUN/creatini ne ratio 6 9-23 below low normal Not Available [facility] ([facility]) [address] [facility] [place], [address], 02/06/2024 06:38:48 02/05/20 24 02/06/2024 CMP14 +EGFR sodium 138 mmol/ L 134-14 4 normal Not Available [facility] ([facility]) [address] [place], [address], 02/06/2024 06:38:48 02/05/20 24 02/06/2024 CMP14 +EGFR potassium 4.4 mmol/ L 3.5-5. 2 normal Not Available [facility] ([facility]) [address] [place], [address], 02/06/2024 06:38:48 02/05/20 24 02/06/2024 CMP14 +EGFR chloride 103 mmol/ L 96-106 normal Not Available [facility] ([facility]) [address] [place], [address], 02/06/2024 06:38:48 02/05/20 24 02/06/2024 CMP14 +EGFR carbon dioxide, total 20 mmol/ L 20-29 normal Not Available [facility] ([facility]) [address] [place], [address], 02/06/2024 06:38:48 02/05/20 24 02/06/2024 CMP14 +EGFR calcium 9.3 mg/dL 8.7-10 .2 normal Not Available [facility] ([facility]) [address] [place], [address], 02/06/2024 06:38:48 02/05/20 24 02/06/2024 CMP14 +EGFR protein, total 7.3 g/dL 6.0-8. 5 normal Not Available [facility] ([facility]) [address] [place], [address], 02/06/2024 06:38:48 02/05/20 24 02/06/2024 CMP14 +EGFR albumin 4.4 g/dL 3.9-4. 9 normal Not Available [facility] ([facility]) [address] [facility] [place], [address], 02/06/2024 06:38:48 02/05/20 24 02/06/2024 CMP14 +EGFR globulin, total 2.9 g/dL 1.5-4. 5 Not Available [facility] ([facility]) [address] [facility] [place], [address], 02/06/2024 06:38:48 02/05/20 24 02/06/2024 CMP14 +EGFR bilirubin, total 0.7 mg/dL 0.0-1. 2 normal Not Available [facility] ([facility]) [address] [facility] [place], [address], 02/06/2024 06:38:48 02/05/20 24 02/06/2024 CMP14 +EGFR alkaline phosphatase 80 IU/L 44-121 normal Not Available [facility] [address] [facility] [place], [address], 02/06/2024 06:38:48 02/05/20 24 02/06/2024 CMP14 +EGFR AST (SGOT) 21 IU/L 0-40 normal Not Available [facility] ([facility]) [address] [facility] [place], [address], 02/06/2024 06:38:48 02/05/20 24 02/06/2024 CMP14 +EGFR ALT (SGPT) 18 IU/L 0-32 normal Not Available [facility] ([facility]) [address] [facility] [place], [address], 02/06/2024 06:38:48 02/05/20 24 02/06/2024 TSH+F REE T4 TSH 0.467 uIU/m L 0.450- 4.500 normal Not Available [facility] ([facility]) [address] [place], [address], 02/06/2024 06:38:48 02/05/20 24 02/06/2024 TSH+F REE T4 T4,free(dire ct) 0.93 NG/dL 0.82-1 .77 normal Not Available [facility] ([facility]) [address] [place], [address], 02/06/2024 06:38:48 02/05/20 24 02/06/2024 CBC WITH DIFFE RENTI AL/PL ATELE T WBC 5.9 x10e3 /uL 3.4-10 .8 normal Not Available [facility] ([facility]) [address] [place], [address], 02/06/2024 06:38:49 02/05/20 24 02/06/2024 CBC WITH DIFFE RENTI AL/PL ATELE T RBC 5.33 x10e6 /uL 3.77-5 .28 above high normal Not Available [facility] ([facility]) [address] [place], [address], 02/06/2024 06:38:49 02/05/20 24 02/06/2024 CBC WITH DIFFE RENTI AL/PL ATELE T hemoglobin 15.4 g/dL 11.1-1 5.9 normal Not Available [facility] ([facility]) [address] [place], [address], 02/06/2024 06:38:49 02/05/20 24 02/06/2024 CBC WITH DIFFE RENTI AL/PL ATELE T hematocrit 47.0 % 34.0-4 6.6 above high normal Not Available [facility] ([facility]) [address] [place], [address], 02/06/2024 06:38:49 12/13/20 24 02/06/2024 CBC WITH DIFFE RENTI AL/PL ATELE T MCV 88 fL 79-97 normal Not Available [facility] ([facility]) [address] [facility], [place], [address], 02/06/2024 06:38:49 02/05/20 24 02/06/2024 CBC WITH DIFFE RENTI AL/PL ATELE T MCH 28.9 pg 26.6-3 3.0 normal Not Available [facility] ([facility]) [address] [facility], [place], [address], 02/06/2024 06:38:49 02/05/20 24 02/06/2024 CBC WITH DIFFE RENTI AL/PL ATELE T MCHC 32.8 g/dL 31.5-3 5.7 normal Not Available [facility] ([facility]) [address] [place], [address], 02/06/2024 06:38:49 02/05/20 24 02/06/2024 CBC WITH DIFFE RENTI AL/PL ATELE T RDW 13.4 % 11.7-1 5.4 Not Available [facility] ([facility]) [address] [place], [address], 02/06/2024 06:38:49 02/05/20 24 02/06/2024 CBC WITH DIFFE RENTI AL/PL ATELE T platelets 297 x10e3 /uL 150-45 0 normal Not Available [facility] ([facility]) [address] [place], [address], 02/06/2024 06:38:49 02/05/20 24 02/06/2024 CBC WITH DIFFE RENTI AL/PL ATELE T neutrophils 53 % not estab. normal Not Available [facility] ([facility]) [address] [place], [address], 02/06/2024 06:38:49 02/05/20 24 02/06/2024 CBC WITH DIFFE RENTI AL/PL ATELE T lymphs 36 % not estab. normal Not Available [facility] ([facility]) [address] [place], [address], 02/06/2024 06:38:49 02/05/20 24 02/06/2024 CBC WITH DIFFE RENTI AL/PL ATELE T monocytes 8 % not estab. normal Not Available [facility] ([facility]) [address] [facility], [place], [address], 02/06/2024 06:38:49 02/05/20 24 02/06/2024 CBC WITH DIFFE RENTI AL/PL ATELE T eos 3 % not estab. normal Not Available [facility] ([facility]) [address] [facility], [place], [address], 02/06/2024 06:38:49 02/05/20 24 02/06/2024 CBC WITH DIFFE RENTI AL/PL ATELE T basos 0 % not estab. normal Not Available [facility] ([facility]) [address] [place], [address], 02/06/2024 06:38:49 02/05/20 24 02/06/2024 CBC WITH DIFFE RENTI AL/PL ATELE T immature cells MERCHANDISING SPECIALIST Not Available [facility] ([facility]) [address] [place], [address], 02/06/2024 06:38:49 02/05/20 24 02/06/2024 CBC WITH DIFFE RENTI AL/PL ATELE T neutrophils (absolute) 3.1 x10e3 /uL 1.4-7. 0 normal Not Available [facility] ([facility]) [address] [place], [address], 02/06/2024 06:38:49 02/05/20 24 02/06/2024 CBC WITH DIFFE RENTI AL/PL ATELE T lymphs (absolute) 2.1 x10e3 /uL 0.7-3. 1 normal Not Available [facility] ([facility]) [address] [facility], [place], [address], 02/06/2024 06:38:49 02/05/20 24 02/06/2024 CBC WITH DIFFE RENTI AL/PL ATELE T monocytes(ab solute) 0.4 x10e3 /uL 0.1-0. 9 normal Not Available [facility] ([facility]) [address] [facility], [place], [address], 02/06/2024 06:38:49 02/05/20 24 02/06/2024 CBC WITH DIFFE RENTI AL/PL ATELE T eos (absolute) 0.2 x10e3 /uL 0.0-0. 4 normal Not Available [facility] ([facility]) [address] [facility], [place], [address], 02/06/2024 06:38:49 02/05/20 24 02/06/2024 CBC WITH DIFFE RENTI AL/PL ATELE T baso (absolute) 0.0 x10e3 /uL 0.0-0. 2 normal Not Available [facility] ([facility]) [address] [facility], [place], [address], 02/06/2024 06:38:49 02/05/20 24 02/06/2024 CBC WITH DIFFE RENTI AL/PL ATELE T immature granulocytes 0 % not estab. Not Available [facility] ([facility]) [address] [place], [address], 02/06/2024 06:38:49 02/05/20 24 02/06/2024 CBC WITH DIFFE RENTI AL/PL ATELE T immature grans (abs) 0.0 x10e3 /uL 0.0-0. 1 Not Available [facility] ([facility]) [address] [facility], [place], [address], 02/06/2024 06:38:49 02/05/20 24 02/06/2024 CBC WITH DIFFE RENTI AL/PL ATELE T NRBC MERCHANDISING SPECIALIST Not Available [facility] ([facility]) [address] [facility], [place], [address], 02/06/2024 06:38:49 02/05/20 24 02/06/2024 CBC WITH DIFFE RENTI AL/PL ATELE T hematology comments: MERCHANDISING SPECIALIST Not Available [facility] ([facility]) [address] [facility], [place], [address], 02/06/2024 06:38:49 02/05/20 24 02/06/2024 LIPID PANEL cholesterol, total 203 mg/dL 100-19 9 above high normal Not Available [facility] ([facility]) [address] [facility], [place], [address], 02/06/2024 06:38:49 02/05/20 24 02/06/2024 LIPID PANEL triglyceride s 115 mg/dL 0-149 normal Not Available [facility] ([facility]) [address] [facility], [place], [address], 02/06/2024 06:38:49 02/05/20 24 02/06/2024 LIPID PANEL HDL cholesterol 40 mg/dL >39 normal Not Available [facility]) [address] [facility], [place], [address], 02/06/2024 06:38:49 02/05/20 24 02/06/2024 LIPID PANEL VLDL cholesterol leroy 21 mg/dL 5-40 Not Available [facility] ([facility]) [address] [facility], [place], [address], 02/06/2024 06:38:49 02/05/20 24 02/06/2024 LIPID PANEL LDL chol calc (rust) 142 mg/dL 0-99 above high normal Not Available [facility] ([facility]) [address] [facility], [place], [address], 02/06/2024 06:38:49 02/05/20 24 02/06/2024 LIPID PANEL LDL calc comment: MERCHANDISING SPECIALIST Not Available [facility] ([facility]) [address] [facility], [place], [address], 02/06/2024 06:38:49 02/05/20 24 02/06/2024 HCV ANTIB LISSETH RFX TO QUANT PCR HCV Ab NON REACTI VE non reacti ve Not Available [facility] ([facility]) [address] [facility], [place], [address], 02/06/2024 06:38:49 02/05/2002/06/2024 HCV ANTIB LISSETH RFX TO QUANT PCR interpretati on: COMMEN T Not infec juan daniel with HCV unles s early or acute infec tion is suspe cted (whic h may be delay ed in an immun ocomp romis ed indiv idual ), or other evide nce exist s to indic ate HCV infec tion. Not Available [facility] ([facility]) [address] [facility], [place], [address], 02/06/2024 06:38:49 02/05/2002/06/2024 HIV AB/P2 4 AG WITH REFLE X HIV Ab/P24 Ag screen NON REACTI VE non reacti ve HIV-1 /HIV- 2 antib odies and HIV-1 p24 antig en were NOT detec juan daniel. There is no labor atory evide nce of HIV infec tion. HIV Negat dwayne Not Available [facility] ([facility]) [address] [facility], [place], [address], 02/06/2024 06:38:50 02/05/2002/06/2024 CGT (ASYM PTOMA TIC) chlamydia trachomatis 0.000 ppm 23.000 - 29.500 normal Not Detec juan daniel Not Available [facility] [address], [place], [address], 02/06/2024 13:30:55 02/05/20 24 02/06/2024 CGT (ASYM PTOMA TIC) neisseria gonorrhoeae 0.000 ppm 23.000 - 29.500 normal Not Detec juan daniel Not Available [facility] [address], [place], [address], 02/06/2024 13:30:55 02/05/20 24 02/06/2024 CGT (ASYM PTOMA TIC) trichomonas vaginalis 0.000 ppm 23.000 - 29.500 normal Not Detec juan daniel Not Available [facility] [address], [place], [address], 02/06/2024 13:30:55 10/18/19 25 10/18/2024 CMP14 +EGFR glucose 89 mg/dL 70-99 normal Not Available [facility] ([facility]) [address] [place], [address], 10/18/2024 06:37:29 10/18/19 25 10/18/2024 CMP14 +EGFR BUN 10 mg/dL 6-20 normal Not Available [facility] ([facility]) [address] [place], [address], 10/18/2024 06:37:29 10/18/19 25 10/18/2024 CMP14 +EGFR creatinine 0.97 mg/dL 0.57-1 .00 normal Not Available [facility] ([facility]) [address] [place], [address], 10/18/2024 06:37:29 10/18/19 25 10/18/2024 CMP14 +EGFR eGFR 78 mL/mi n/1.7 3 >59 normal Not Available [facility] ([facility]) [address] [place], [address], 10/18/2024 06:37:29 10/18/19 25 10/18/2024 CMP14 +EGFR BUN/creatini ne ratio 10 9-23 normal Not Available [facility] ([facility]) [address] [place], [address], 10/18/2024 06:37:29 10/18/1910/18/2024 CMP14 +EGFR sodium 139 mmol/ L 134-14 4 normal Not Available [facility] ([facility]) [address] [place], [address], 10/18/2024 06:37:29 10/18/1910/18/2024 CMP14 +EGFR potassium 4.6 mmol/ L 3.5-5. 2 normal Not Available [facility] ([facility]) [address] [place], [address], 10/18/2024 06:37:29 10/18/1910/18/2024 CMP14 +EGFR chloride 103 mmol/ L 96-106 normal Not Available [facility] ([facility]) [address] [place], [address], 10/18/2024 06:37:29 10/18/1910/18/2024 CMP14 +EGFR carbon dioxide, total 20 mmol/ L 20-29 normal Not Available [facility] ([facility]) [address] [place], [address], 10/18/2024 06:37:29 10/18/1910/18/2024 CMP14 +EGFR calcium 9.4 mg/dL 8.7-10 .2 normal Not Available [facility] ([facility]) [address] [place], [address], 10/18/2024 06:37:29 10/18/1910/18/2024 CMP14 +EGFR protein, total 6.8 g/dL 6.0-8. 5 normal Not Available [facility] ([facility]) [address] [place], [address], 10/18/2024 06:37:29 10/18/1910/18/2024 CMP14 +EGFR albumin 4.3 g/dL 3.9-4. 9 normal Not Available [facility] ([facility]) [address] [facility] [place], [address], 10/18/2024 06:37:29 10/18/1910/18/2024 CMP14 +EGFR globulin, total 2.5 g/dL 1.5-4. 5 Not Available [facility] ([facility]) [address] [place], [address], 10/18/2024 06:37:29 10/18/1910/18/2024 CMP14 +EGFR bilirubin, total 0.3 mg/dL 0.0-1. 2 normal Not Available [facility] ([facility]) [address] [place], [address], 10/18/2024 06:37:29 10/18/1910/18/2024 CMP14 +EGFR alkaline phosphatase 72 IU/L 44-121 normal Not Available [facility] ([facility]) [address] [place], [address], 10/18/2024 06:37:29 10/18/1910/18/2024 CMP14 +EGFR AST (SGOT) 18 IU/L 0-40 normal Not Available [facility] ([facility]) [address] [place], [address], 10/18/2024 06:37:29 10/18/1910/18/2024 CMP14 +EGFR ALT (SGPT) 21 IU/L 0-32 normal Not Available [facility] ([facility]) [address] [place], [address], 10/18/2024 06:37:29 10/18/1910/18/2024 TSH+F REE T4 TSH 0.617 uIU/m L 0.450- 4.500 normal Not Available [facility] ([facility]) [address] [place], [address], 10/18/2024 06:37:30 10/18/1910/18/2024 TSH+F REE T4 T4,free(dire ct) 1.03 NG/dL 0.82-1 .77 normal Not Available [facility] ([facility]) [address] [place], [address], 10/18/2024 06:37:30 10/18/1910/18/2024 CBC WITH DIFFE RENTI AL/PL ATELE T WBC 6.4 x10e3 /uL 3.4-10 .8 normal Not Available [facility] ([facility]) [address] [place], [address], 10/18/2024 06:37:31 10/18/1910/18/2024 CBC WITH DIFFE RENTI AL/PL ATELE T RBC 4.84 x10e6 /uL 3.77-5 .28 normal Not Available [facility] ([facility]) [address] [place], [address], 10/18/2024 06:37:31 10/18/1910/18/2024 CBC WITH DIFFE RENTI AL/PL ATELE T hemoglobin 14.2 g/dL 11.1-1 5.9 normal Not Available [facility] ([facility]) [address] [place], [address], 10/18/2024 06:37:31 10/18/1910/18/2024 CBC WITH DIFFE RENTI AL/PL ATELE T hematocrit 44.2 % 34.0-4 6.6 normal Not Available [facility] ([facility]) [address] [place], [address], 10/18/2024 06:37:31 10/18/1910/18/2024 CBC WITH DIFFE RENTI AL/PL ATELE T MCV 91 fL 79-97 normal Not Available [facility] ([facility]) [address] [place], [address], 10/18/2024 06:37:31 10/18/1910/18/2024 CBC WITH DIFFE RENTI AL/PL ATELE T MCH 29.3 pg 26.6-3 3.0 normal Not Available [facility] ([facility]) [address] [facility], [place], [address], 10/18/2024 06:37:31 10/18/1910/18/2024 CBC WITH DIFFE RENTI AL/PL ATELE T MCHC 32.1 g/dL 31.5-3 5.7 normal Not Available [facility] ([facility]) [address] [facility], [place], [address], 10/18/2024 06:37:31 10/18/1910/18/2024 CBC WITH DIFFE RENTI AL/PL ATELE T RDW 13.0 % 11.7-1 5.4 Not Available [facility] ([facility]) [address] [facility], [place], [address], 10/18/2024 06:37:31 10/18/1910/18/2024 CBC WITH DIFFE RENTI AL/PL ATELE T platelets 224 x10e3 /uL 150-45 0 normal Not Available [facility] ([facility]) [address] [place], [address], 10/18/2024 06:37:31 10/18/1910/18/2024 CBC WITH DIFFE RENTI AL/PL ATELE T neutrophils 50 % not estab. normal Not Available [facility] ([facility]) [address] [place], [address], 10/18/2024 06:37:31 10/18/1910/18/2024 CBC WITH DIFFE RENTI AL/PL ATELE T lymphs 39 % not estab. normal Not Available [facility] ([facility]) [address] [place], [address], 10/18/2024 06:37:31 10/18/1910/18/2024 CBC WITH DIFFE RENTI AL/PL ATELE T monocytes 6 % not estab. normal Not Available [facility] ([facility]) [address] [place], [address], 10/18/2024 06:37:31 10/18/1910/18/2024 CBC WITH DIFFE RENTI AL/PL ATELE T eos 4 % not estab. normal Not Available [facility] ([facility]) [address] [place], [address], 10/18/2024 06:37:31 10/18/1910/18/2024 CBC WITH DIFFE RENTI AL/PL ATELE T basos 1 % not estab. normal Not Available [facility] ([facility]) [address] [place], [address], 10/18/2024 06:37:31 10/18/1910/18/2024 CBC WITH DIFFE RENTI AL/PL ATELE T immature cells MERCHANDISING SPECIALIST Not Available [facility] ([facility]) [address] [place], [address], 10/18/2024 06:37:31 10/18/1910/18/2024 CBC WITH DIFFE RENTI AL/PL ATELE T neutrophils (absolute) 3.2 x10e3 /uL 1.4-7. 0 normal Not Available [facility] ([facility]) [address] [place], [address], 10/18/2024 06:37:31 10/18/1910/18/2024 CBC WITH DIFFE RENTI AL/PL ATELE T lymphs (absolute) 2.5 x10e3 /uL 0.7-3. 1 normal Not Available [facility] ([facility]) [address] [place], [address], 10/18/2024 06:37:31 10/18/19 25 10/18/2024 CBC WITH DIFFE RENTI AL/PL ATELE T monocytes(ab solute) 0.4 x10e3 /uL 0.1-0. 9 normal Not Available [facility] ([facility]) [address] [facility], [place], [address], 10/18/2024 06:37:31 10/18/1910/18/2024 CBC WITH DIFFE RENTI AL/PL ATELE T eos (absolute) 0.3 x10e3 /uL 0.0-0. 4 normal Not Available [facility] ([facility]) [address] [place], [address], 10/18/2024 06:37:31 10/18/1910/18/2024 CBC WITH DIFFE RENTI AL/PL ATELE T baso (absolute) 0.1 x10e3 /uL 0.0-0. 2 normal Not Available [facility] ([facility]) [address] [place], [address], 10/18/2024 06:37:31 10/18/1910/18/2024 CBC WITH DIFFE RENTI AL/PL ATELE T immature granulocytes 0 % not estab. Not Available [facility] ([facility]) [address] [place], [address], 10/18/2024 06:37:31 10/18/1910/18/2024 CBC WITH DIFFE RENTI AL/PL ATELE T immature grans (abs) 0.0 x10e3 /uL 0.0-0. 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 [email or web address] [facility] [address], [place], [address], 09/14/2024 11:40:34 Result Notes None recorded. Problems Name Problem SNOMED Code Status Onset Date Resolution Date Notes Provider Name and Address Organization Details Recorded Time Paresthesia 56626813 Active Flora Fleharty null, [place] [facility] [place] [facility] [place] 2 12:29:52 Goiter 1598913 Active Flora Fleharty null, [place] [facility] [place] 2 12:29:52 Hypertensive disorder 82099389 Active Flora Fleharty [place], [place] [facility] [place] 2 12:29:52 Degeneration of lumbosacral intervertebra l disc 59621211 Active Flora Fleharty null, [place] [facility] [place] 2 12:29:52 Spasm 65022776 Active 2022 Paresh Denis MD [address], [place], [address] , [place] [facility] [place] 3 16:25:25 Chronic headache disorder 167440924 Active [address], [place], [address] , [place] [facility] [place] 3 16:25:28 Seasonal allergy 716295190 Active [address], [place], [address] , [place] CORCORAN [facility] & [place] 3 16:25:32 Problem Notes None recorded. Procedures Surgical History Date Name Laterality Status Provider Name and Address Organization Details Recorded Time 02/23/19 18 Date of Last Pap Smear completed Taniya CORCORAN [facility] & [place] 06/12/2022 22:00:07 section completed Taniya CORCORAN [facility] & [place] 06/12/2022 21:55:12 Total Hysterectomy completed Kim Deutsch [facility] & [place] 09/29/2022 15:47:28 ligation of fallopian tube completed Morena Deutsch [facility] & [place] 12/01/2024 07:02:45 Imaging Results None recorded. Procedure Notes None recorded. 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 Serial Number Lot Number Status Provider Name and Address Organization Details Recorded Time IUD FDA Y [place] Pike [facility] & [place] 09/22/2024 07:07:14 Allergies Allergen ID Allergen Name Allergen Category Reaction Reaction Severity Criticality Documentation Date Start Date Code Code System Note Provider Name and Address Organization Details Recorded Time 04065 morphine medicatio n Not available Not available Not available 12/24/2021 7052 RxNorm [place]A Gambino [facility] & [place] 2 12:29:52 46450 guaifenes in medicatio n Not available Not available Not available 12/24/2021 5032 RxNorm [place] Gambino [facility] & [place] 2 12:29:52 Medications Name Sig Start Date [...] Address Organization Details Last Updated DateTime 3 273812. 63 g 37.7 kg/m2 172.72 cm 96.9 [degF] 86 /min 110/79 mm[Hg] Kim Soto [facility] & [place] 3 15:51:17 Date Recorded Body weight Body mass index (BMI) Body height Body temperature Heart rate Systolic And Diastolic Provider Name and Address Organization Details Last Updated DateTime 5 785900. 67 g 38.5 kg/m2 172.72 cm 97.7 [degF] 93 /min 167/116 mm[Hg] Anai Augustine [facility] & [place] 5 13:44:10 Date Recorded Body height Body mass index (BMI) Body weight Body temperature Heart rate Systolic And Diastolic Provider Name and Address Organization Details Last Updated DateTime 5 172.72 cm 38.1 kg/m2 851479. 53 g 96.7 [degF] 89 /min 141/93 mm[Hg] Jeanine Berlin [facility] & [place] 5 13:50:54 Date Recorded Systolic And Diastolic Provider Name and Address Organization Details Last Updated DateTime 11/16/2024 146/106 mm[Hg] Kate Chappell [facility] & [place] 11/16/2024 14:43:41 Date Recorded Body height Body mass index (BMI) Body weight Body temperature Oxygen saturation Oxygen saturation in Arterial blood by Pulse oximetry Heart rate Pain severity - 0-10 verbal numeric rating [Score] - Reported Systolic And Diastolic Systolic And Diastolic Provider Name and Address Organization Details Last Updated DateTime 5 172.72 cm 38.6 kg/m2 037533. 16 g 97.4 [degF] 99 % 99 % 96 /min 4 172/110 mm[Hg] 185/140 mm[Hg] Mag mike [facility] & [place] 5 13:36:46 Date Recorded Body weight Body temperature Oxygen saturation Oxygen saturation in Arterial blood by Pulse oximetry Heart rate Systolic And Diastolic Provider Name and Address Organization Details Last Updated DateTime 4 437498. 87 g 97.8 [degF] 97 % 97 % 99 /min 132/88 mm[Hg] Kate Chappell [facility] & [place] 4 11:10:05 Social History Question Answer Notes LastModified by Organizat ion Details LastModified Time Tobacco Smoking Status Current Every Day Smoker Kim Soto [facility], [place] [facility] & [place] 09/29/2022 15:47:03 Do You Have An Advance Directive? No [email or web address] Information not available 09/29/2022 Are You Blind Or Do You Have Difficulty Seeing? Yes Glasses [email or web address] Information not available 09/29/2022 Is Blood Transfusion Acceptable In An Emergency? Yes [email or web address] Information not available 09/29/2022 What Is Your Level Of Caffeine Consumption? Heavy [email or web address] Information not available 09/29/2022 In The 14 Days Before Symptom Onset, Have You Had Close Contact With A Laboratory-confir med COVID-19 While That Case Was Ill? No [email or web address] Information not available 09/29/2022 In The 14 Days Before Symptom Onset, Have You Had Close Contact With A Person Who Is Under Investigation For COVID-19 While That Person Was Ill? No [email or web address] Information not available 09/29/2022 Have You Been To An Area Known To Be High Risk For COVID-19? No [email or web address] Information not available 09/29/2022 Are You Deaf Or Do You Have Serious Difficulty Hearing? No [email or web address] Information not available 09/29/2022 What Type Of Diet Are You Following? REGULAR [email or web address] Information not available 09/29/2022 Which Illicit Or Recreational Drugs Have You Used? Darby [place] [email or web address] Information not available 09/29/2022 Have You Processed Blood Or Body Fluids From An Ebola Virus Disease Patient Without Appropriate PPE? No [email or web address] Information not available 09/29/2022 Do You Reside In Or Have You Traveled To An Area Where Ebola Virus Transmission Is Active? No [email or web address] Information not available 09/29/2022 Have There Been Any Changes To Your Family Or Social Situation? No [email or web address] Information no t available 09/29/2022 What Is The Fluoride Status Of Your Home? Fluoridated [email or web address] Information not available 09/29/2022 Are There Any Guns Present In Your Home? No Information not available 09/29/2022 Have You Recently Or Are You Planning To Travel To An Area With Zika Virus? No [email or web address] Information not available 09/29/2022 Do You Use Insect Repellent Routinely? Yes Information not available 09/29/2022 What Was The Date Of Your Most Recent Tobacco Screening? 09/28/2022 [email or web address] Information not available 09/29/2022 What Is Your Current Pack Years? 10-19packyears [email or web address] Information not available 09/29/2022 Do You Have Any Pets? Yes Information not available 09/29/2022 Do You Use Your Seat Belt Or Car Seat Routinely? Yes Information not available 09/29/2022 Do You Have Smoke And Carbon Monoxide Detectors In Your Home? Yes [email or web address] Information not available 09/29/2022 At What Age Did You Start Smoking Tobacco? 17 [email or web address] Information not available 09/29/2022 Are You Passively Exposed To Smoke? Yes [email or web address] Information no t available 09/29/2022 How Much Tobacco Do You Smoke? 0.5 PPD [email or web address] Information not available 09/29/2022 Do You Use Sunscreen Routinely? Yes [email or web address] Information not available 09/29/2022 How Many Years Have You Smoked Tobacco? 10 [email or web address] Information not available 09/29/2022 Have You Used IV Drugs? No [email or web address] Information not available 09/29/2022 Do You Have Difficulty Walking Or Climbing Stairs? No [email or web address] Information not available 09/29/2022 Are You Currently In School? No [email or web address] Information not available 09/29/2022 Sex: Female Functional Status Question Answer Note LastModified by Organizat ion Details LastModified Time Do you use any illicit or recreational drugs? Yes [email or web address] Information not available 09/29/2022 Do you or have you ever used any other forms of tobacco or nicotine? No Information not available 09/29/2022 What is your level of alcohol consumption? None [email or web address] Information not available 09/29/2022 Do you or have you ever used smokeless tobacco? Never used smokeless tobacco [email or web address] Information not available 09/29/2022 Are you currently employed? Yes [email or web address] Information not available 09/29/2022 Do you have transportation difficulties? No [email or web address] Information not available 09/29/2022 Are you able to walk independently without assistance or assistive devices? YESWOREST [email or web address] Information not available 09/29/2022 Do you have difficulty doing errands alone? No [email or web address] Information not available 09/29/2022 Are you able to care for yourself independently? Yes [email or web address] Information not available 09/29/2022 Do you have difficulty dressing, bathing, grooming, or toileting? No [email or web address] Information not available 09/29/2022 What is your exercise level? Moderate iqvfnifgg81 Information not available 09/29/2022 Mental Status Question Answer Note LastModified by Organizat ion Details LastModified Time Do you feel stressed (tense, restless, nervous, or anxious, or unable to sleep at night)? [id number] [email or web address] Information not available 09/29/2022 Do you have difficulty concentrating, remembering or making decisions? No [email or web address] Information no t available 09/29/2022 Family History Relationship Description Onset Age of this Age Resolved Age Notes LastModified by Organization Details LastModified Time Father Cerebrovascu lar accident [email or web address] Not available 21:58:27 Father Heart disease [email or web address] Not available 2022 21:58:57 Daughter Alive [email or web address] Not availab le 12/29/2023 14:07:59 Son Alive [email or web address] Not available 12/29/2023 14:07:59 Medical History Condition [...] dose 1 completed Paresh Denis MD [address], [place], [address], [place] [facility] & [place] 09/29/2022 16:17:21 COVID-19, mRNA, LNP-S, PF, 30 mcg/0.3 mL dose 1 completed Paresh Denis MD [address], [place], [address], [place] [facility] & [place] 09/29/2022 16:17:22 Hep B, adolescent or pediatric 0 completed Not Available [facility] 11/16/2024 13:15:00 Hep B, adolescent or pediatric 0 completed Not Available [facility] 11/16/2024 13:15:00 Hep B, adolescent or pediatric 1 completed Not Available [facility] 11/16/2024 13:15:00 Td (adult), 2 Lf tetanus toxoid, preservative free, adsorbed 5 completed Not Available [facility] 11/16/2024 13:15:00 Past Encounters Encounter ID Performer Location Encounter Start Date Encounter Closed Date Diagnosis/Indication Diagnosis SNOMED-CT Code Diagnosis ICD10 Code Diagnosis IMO Codes Diagnosis Note [id number] MD Amina Chaudhari and FRANCISCO [place] [address] [place] [address] 09/29/2022 15:07:45 09/29/2022 16:30:19 Hypertensive disorder 75114392 I10 Spasm 47363307 R25.2 Precordial pain 56304940 R07.2 Chronic he adache disorder 423279237 G44.89 Ophthalmic examination and evaluation 72709585 Z01.00 Seasonal allergy 0545825 04 J30.2 [id number] MD Amina Chaudhari and IM Donna [place] [address], [place] [address] 02/05/2024 10:45:48 02/05/2024 12:28:03 Chronic migraine without aura 3910924897 37670 G43.709 Hypertensive disorder 38 680123 I10 Spasm 86121328 R25.2 Seasonal allergy 5351794 04 J30.2 Goiter 1485566 E04.9 Hyperlipidemia 19798691 E78.5 HIV screening 258072004 Z11.4 Hepatitis C screening 41 1592660 Z11.59 Venereal d isease screening 453824617 Z11.3 [id number] MD Amina Chaudhari and Declanw n [address] [place] [address] 11/16/2024 13:13:59 11/17/2024 08:59:29 Hypertensive disorder 40607468 I10 Mixed hyperlipidemia 267 491480 E78.2 [id number] CARMENCITA Gibson and Oumar[address] [place] [address] 10/04/2024 13:26:10 10/04/2024 15:47:58 Essential hypertension 99420160 I10 32423 Anxiety 66769792 F41.9 02020 [id number] MD Amina Chaudhari and [address] [place] [address] 10/17/2024 13:30:01 10/17/2024 14:55:52 Hypertensive disorder 21661283 I10 Goiter 7991126 E04.9 Acute kidney injury 1466 9001 N17.9 723173 Adjustment disorder with depressed mood 06439722 F43.21 82377 Pain in left thumb 49104 91016 100233 M79.645 [id number] Health Concerns Section Related Observation LastModified by Organization Detai ls LastModified Time None Recorded Concern Status LastModified by Organization Details LastModified Time None Recorded Advance Directives Directive N: Payers Insurance Date Sequence Insurance Name Policy Number Policy Ordoñez Covered Member ID Ordoñez Member ID Guarantor Name 12/01/2024 1 [facility] [place] - [id number] Cristiane Whatley [id number] Cristiane Whatley 10/04/2024 1 [place] [id number] Cristiane Whatley [id number] Cristiane Whatley Notes Date Note Type Note Provider Name and Address Organization Details Recorded Time 3 text/html HTN: Very inconsistent with taking BP meds. Hasn't taken it today. Last took it yesterday. CP: Is feeling some heaviness in her chest from time to time. Feels a tightness in her heart. This is random when it happens. Thyromegaly: Has hx of enlarged thryoid. NO recent US. Last US ordered 2020 and not done. Not recent labs. Headaches: Last eye exam was 5 years. Poor compliance with BP meds. Gets HAs mult times per week. No prior dx of migraine headache. SCHULTZ feels like throbbing. Takes ibuprofen and this helps sometimes. Tyelnol doesn't help at all. HMS: PAP smear 2019 (Dr. Shah, [facility]). Hasn't been to [facility] in years. No colonosocpy; no mammogram; no family hx. Paresh Denis MD [address], [place], [address], [facility] 10/05/2022 20:53:19 4 text/html HTN: History of being very inconsistent with taking BP meds. Doing better more recently; BP looks good.--Doesn't like Thyromegaly: Has hx of enlarged thryoid. NO recent US. Last US ordered 2020 and not done. Not recent labs. No [...] was stopped HMS:--PAP smear 2019 (Dr. Shah, [facility]). Hasn't been to [facility] in years.--No colonoscopy--no mammogram; no family hx. Paresh Denis MD [address], [place], [address], [place] [facility] [place] & [place] 02/05/2024 11:56:26 5 text/html Hypertension F/UReported by PatientHPIFor associated symptoms, patient reportsheadache. For medications, patient reportstaking medications as directed. Patient presents with elevated blood pressure since June. She has been taking her lisinopril 40 mg. She has been more stressed due to a divorce.She has been having some intermittent headaches since June as well.Patient reports she took xanax in the past for anxiety. She has tried SSRI in the past and did not tolerate them. Denies SI.Patient has had a hysterectomy in the past. Kim Das PA-C [address], [place], [address], [facility] - [facility] & [place] 10/04/2024 15:51:09 5 text/html Cristiane Whatley is a 34-year-old female who presents for an acute visit regarding blood pressure concerns. Blood pressure has been running high, and she has experienced symptoms such as feeling unwell. She visited the emergency room on Thursday after passing out at home and being unresponsive for approximately seven minutes. Her blood pressure at the time was recorded as 60/49. She was evaluated with blood work, EKG, and heart monitoring at [facility], where her kidney function was noted to be low. She checked out against medical advice before additional testing could be completed. She was previously prescribed lisinopril 40 mg and hydrochlorothiazide for blood pressure management, as well as buspirone for anxiety, amitriptyline for headaches, and tizanidine for muscle spasms. The buspirone and hydrochlorothiazide were started recently by another provider, Ms. Das, during a prior visit. After taking these medications for two to three days, she experienced the passing-out episode. She has since stopped all medications except for taking lisinopril on Thursday. She reports ongoing concerns about her blood pressure and is experiencing significant emotional distress due to a separation from her . She describes symptoms of anger, crying, difficulty sleeping, weight loss, and poor appetite. She is not currently taking any blood pressure medication or anxiety medication. Additionally, she reports a locked and swollen thumb that has been painful since June. She visited the emergency room last month, where X-rays were performed, and no fractures were identified. She describes difficulty bending the thumb backward, with soreness localized to the base of the thumb. HTN: History of being very inconsistent with taking BP meds. Doing better more recently; BP still elevated. Did see kim recently and had HCTZ added to lisinopril bc BP had been elevated on checks at home. After starting the hctz patrice had syncopal episode at home where bp was SBP 60's. WEnt to ED at [facility] which had normal labs except for mild kidney abnormality and she was dehydrated. Gave fluids and told to FU with PCP. Has stopped all meds since then. Thyromegaly: Has hx of enlarged thryoid. NO recent US. Last US ordered 2019 and not done. Not recent labs. Neeeds labs today Migraine Headaches: Gets HAs mult times per week. No prior dx of migraine headache. SCHULTZ feels like throbbing. Takes ibuprofen and this helps sometimes. Tylenol doesn't help at all. Denies photo-phonphobia. No vision changes. SCHULTZ is unilateral, on left side--Did go and get eye exam and everything stable.--We started elavil and this ws working well.--Recently stopped this bc of syncopal episode and she just stopped all meds. [facility] [place] (Dr. Shah, [facility]). Hasn't been to [facility] in years.--No colonoscopy--no mammogram; no family hx. Paresh Denis MD [address], [place], [address], [facility] - [facility] - [place] & [place] 10/18/2024 15:53:52 5 text/html Cristiane Whatley is a 34-year-old female [...] reviewed from prior testing. Paresh Denis MD [address] [facility], [place], [address], [facility] - [place] - [place] & [place] 11/16/2024 15:25:35 OBGyn Episode No OBEpisode recorded.
--- OUTSIDE RECORDS SUMMARY | 2024-12-10 18:34 | XMS_ITS | Continuity of Care Document ---
Author Organization [place] [facility] [place] [facility] [place], [facility] Address [address] [place] [address] Care Team Providers Care Assistant Name Role Phone PARESH DENIS Primary Care Provider Assessment Encounter Date Assessment Date Assessment LastModified by Organization Details LastModified Time 10/17/2024 10/17/2024 ASSESSMENT: - Hypertension, uncontrolled. - [...] inflammation and refer the patient to an account management specialist for further evaluation. Discussed potential interventions such as braces or injections but noted that surgery is not indicated at this time. Patient is advised to return for close follow-up on 10/27 to monitor blood pressure and overall progress. Please note this report was created using voice recognition/text compilation software documentation services during the encounter with the patient. [email or web address] Not available 10/17/2024 14:38:53 Plan of Treatment Reminders Order Date Submit Date Provider Last Modified By Organization Details Last Modified Time Details Appointments OV EST 20 2024 11:40A M Paresh Denis MD Not available Not available Not available Lab TSH + free T4, serum 2024 025 [facility], [address], [place], [address], 10/18/2024 06:37:30 CBC w/ auto diff 2024 025 [facility], [address], [address], [place], [address], 10/18/2024 06:37:31 CMP, serum or plasma 2024 025 [facility], [address], [place], [address], 10/18/2024 06:37:29 Referral orthopedi c surgeon referral [address] [place] [address] Orthopedics, [address] [place] [address], [address], 11/01/2024 09:16:17 Procedures None recorded. Surgeries None recorded. Imaging None recorded. Medication Orders losartan 50 mg tablet 2024 025 [id number], [address] [place], [address], 11/16/2024 14:02:09 Medrol (Ezio) 4 mg tablets in a dose pack 2024 025 [id number], [address] [place], [address], 10/31/2024 05:03:07 Lexapro 10 mg tablet 2024 025 [id number], [address] [place], [address], 11/16/2024 13:30:41 Patient TargetsNo targets recorded. Patient InstructionsNo instructions recorded. 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 Orthopedic Surgeon Referral for Pain in left thumb Referring Physician: Paresh Denis, Internal Medicine, Encounter Date: 10/17/2024 Results Created Date Observation Date Name Description Value Unit Range Abnormal Flag Note LastModifiedBy Organization Detail LastModifiedTime 10/18/1910/18/2024 CMP14 +EGFR glucose 89 mg/dL 70-99 normal Not Available [facility] ([facility]) [address] [place], [address], 10/18/2024 06:37:29 10/18/1910/18/2024 CMP14 +EGFR BUN 10 mg/dL 6-20 normal Not Available [facility] ([facility]) [address] [place], [address], 10/18/2024 06:37:29 10/18/1910/18/2024 CMP14 +EGFR creatinine 0.97 mg/dL 0.57-1 .00 normal Not Available [facility] ([facility]) [address] [place], [address], 10/18/2024 06:37:29 10/18/1910/18/2024 CMP14 +EGFR eGFR 78 mL/mi n/1.7 3 >59 normal Not Available [facility] ([facility]) [address] [place], [address], 10/18/2024 06:37:29 10/18/1910/18/2024 CMP14 +EGFR BUN/creatini ne ratio 10 9-23 normal Not Available [facility]) [address] [place], [address], 10/18/2024 06:37:29 10/18/1910/18/2024 CMP14 +EGFR sodium 139 mmol/ L 134-14 4 normal Not Available [facility] ([facility]) [address] [place], [address], 10/18/2024 06:37:29 10/18/1910/18/2024 CMP14 +EGFR potassium 4.6 mmol/ L 3.5-5. 2 normal Not Available [facility] ([facility]) [address] [place], [address], 10/18/2024 06:37:29 10/18/1910/18/2024 CMP14 +EGFR chloride 103 mmol/ L 96-106 normal Not Available [facility] ([facility]) [address] [place], [address], 10/18/2024 06:37:29 10/18/1910/18/2024 CMP14 +EGFR carbon dioxide, total 20 mmol/ L 20-29 normal Not Available [facility] ([facility]) [address] [place], [address], 10/18/2024 06:37:29 10/18/1910/18/2024 CMP14 +EGFR calcium 9.4 mg/dL 8.7-10 .2 normal Not Available [facility] ([facility]) [address] [place], [address], 10/18/2024 06:37:29 10/18/1910/18/2024 CMP14 +EGFR protein, total 6.8 g/dL 6.0-8. 5 normal Not Available [facility] ([facility]) [address] [place], [address], 10/18/2024 06:37:29 10/18/1910/18/2024 CMP14 +EGFR albumin 4.3 g/dL 3.9-4. 9 normal Not Available [facility] ([facility]) [address] [place], [address], 10/18/2024 06:37:29 10/18/1910/18/2024 CMP14 +EGFR globulin, total 2.5 g/dL 1.5-4. 5 Not Available [facility] ([facility]) [address] [place], [address], 10/18/2024 06:37:29 10/18/1910/18/2024 CMP14 +EGFR bilirubin, total 0.3 mg/dL 0.0-1. 2 normal Not Available [facility] ([facility]) [address] [place], [address], 10/18/2024 06:37:29 10/18/1910/18/2024 CMP14 +EGFR alkaline phosphatase 72 IU/L 44-121 normal Not Available [facility]) [address] [facility], [place], [address], 10/18/2024 06:37:29 10/18/1910/18/2024 CMP14 +EGFR AST (SGOT) 18 IU/L 0-40 normal Not Available [facility] ([facility]) [address] [place], [address], 10/18/2024 06:37:29 10/18/1910/18/2024 CMP14 +EGFR ALT (SGPT) 21 IU/L 0-32 normal Not Available [facility] ([facility]) [address] [place], [address], 10/18/2024 06:37:29 10/18/1910/18/2024 TSH+F REE T4 TSH 0.617 uIU/m L 0.450- 4.500 normal Not Available [facility] ([facility]) [address] [place], [address], 10/18/2024 06:37:30 10/18/1910/18/2024 TSH+F REE T4 T4,free(dire ct) 1.03 NG/dL 0.82-1 .77 normal Not Available [facility] ([facility]) [address] [place], [address], 10/18/2024 06:37:30 10/18/1910/18/2024 CBC WITH DIFFE RENTI AL/PL ATELE T WBC 6.4 x10e3 /uL 3.4-10 .8 normal Not Available [facility] ([facility]) [address] [place], [address], 10/18/2024 06:37:31 10/18/1910/18/2024 CBC WITH DIFFE RENTI AL/PL ATELE T RBC 4.84 x10e6 /uL 3.77-5 .28 normal Not Available [facility] ([facility]) [address] [place], [address], 10/18/2024 06:37:31 10/18/1910/18/2024 CBC WITH DIFFE RENTI AL/PL ATELE T hemoglobin 14.2 g/dL 11.1-1 5.9 normal Not Available [facility] ([facility]) [address] [place], [address], 10/18/2024 06:37:31 10/18/1910/18/2024 CBC WITH DIFFE RENTI AL/PL ATELE T hematocrit 44.2 % 34.0-4 6.6 normal Not Available [facility] ([facility]) [address] [place], [address], 10/18/2024 06:37:31 10/18/1910/18/2024 CBC WITH DIFFE RENTI AL/PL ATELE T MCV 91 fL 79-97 normal Not Available [facility] ([facility]) [address] [place], [address], 10/18/2024 06:37:31 10/18/1910/18/2024 CBC WITH DIFFE RENTI AL/PL ATELE T MCH 29.3 pg 26.6-3 3.0 normal Not Available [facility] ([facility]) [address] [place], [address], 10/18/2024 06:37:31 10/18/1910/18/2024 CBC WITH DIFFE RENTI AL/PL ATELE T MCHC 32.1 g/dL 31.5-3 5.7 normal Not Available [facility] ([facility]) [address] [place], [address], 10/18/2024 06:37:31 10/18/1910/18/2024 CBC WITH DIFFE RENTI AL/PL ATELE T RDW 13.0 % 11.7-1 5.4 Not Available [facility] ([facility]) [address] [facility], [place], [address], 10/18/2024 06:37:31 10/18/1910/18/2024 CBC WITH DIFFE RENTI AL/PL ATELE T platelets 224 x10e3 /uL 150-45 0 normal Not Available [facility] ([facility]) [address] [facility], [place], [address], 10/18/2024 06:37:31 10/18/1910/18/2024 CBC WITH DIFFE RENTI AL/PL ATELE T neutrophils 50 % not estab. normal Not Available [facility] ([facility]) [address] [facility], [place], [address], 10/18/2024 06:37:31 10/18/1910/18/2024 CBC WITH DIFFE RENTI AL/PL ATELE T lymphs 39 % not estab. normal Not Available [facility] ([facility]) [address] [facility], [place], [address], 10/18/2024 06:37:31 10/18/1910/18/2024 CBC WITH DIFFE RENTI AL/PL ATELE T monocytes 6 % not estab. normal Not Available [facility] ([facility]) [address] [place], [address], 10/18/2024 06:37:31 10/18/1910/18/2024 CBC WITH DIFFE RENTI AL/PL ATELE T eos 4 % not estab. normal Not Available [facility] ([facility]) [address] [facility], [place], [address], 10/18/2024 06:37:31 10/18/1910/18/2024 CBC WITH DIFFE RENTI AL/PL ATELE T basos 1 % not estab. normal Not Available [facility] ([facility]) [address] [facility], [place], [address], 10/18/2024 06:37:31 10/18/1910/18/2024 CBC WITH DIFFE RENTI AL/PL ATELE T immature cells COW RIDER Not Available [facility] ([facility]) [address] [facility], [place], [address], 10/18/2024 06:37:31 10/18/1910/18/2024 CBC WITH DIFFE RENTI AL/PL ATELE T neutrophils (absolute) 3.2 x10e3 /uL 1.4-7. 0 normal Not Available [facility] ([facility]) [address] [place], [address], 10/18/2024 06:37:31 10/18/1910/18/2024 CBC WITH DIFFE RENTI AL/PL ATELE T lymphs (absolute) 2.5 x10e3 /uL 0.7-3. 1 normal Not Available [facility] ([facility]) [address] [place], [address], 10/18/2024 06:37:31 10/18/1910/18/2024 CBC WITH DIFFE RENTI AL/PL ATELE T monocytes(ab solute) 0.4 x10e3 /uL 0.1-0. 9 normal Not Available [facility] ([facility]) [address] [place], [address], 10/18/2024 06:37:31 10/18/1910/18/2024 CBC WITH DIFFE RENTI AL/PL ATELE T eos (absolute) 0.3 x10e3 /uL 0.0-0. 4 normal Not Available [facility] ([facility]) [address] [place], [address], 10/18/2024 06:37:31 10/18/1910/18/2024 CBC WITH DIFFE RENTI AL/PL ATELE T baso (absolute) 0.1 x10e3 /uL 0.0-0. 2 normal Not Available [facility] ([facility]) [address] [place], [address], 10/18/2024 06:37:31 10/18/1910/18/2024 CBC WITH DIFFE RENTI AL/PL ATELE T immature granulocytes 0 % not estab. Not Available [facility] ([facility]) [address] [place], [address], 10/18/2024 06:37:31 10/18/1910/18/2024 CBC WITH DIFFE RENTI AL/PL ATELE T immature grans (abs) 0.0 x10e3 /uL 0.0-0. 1 Not Available [facility] ([facility]) [address] [place], [address], 10/18/2024 06:37:31 10/18/1910/18/2024 CBC WITH DIFFE RENTI AL/PL ATELE T NRBC COW RIDER Not Available [facility] ([facility]) [address] [place], [address], 10/18/2024 06:37:31 10/18/1910/18/2024 CBC WITH DIFFE RENTI AL/PL ATELE T hematology comments: COW RIDER Not Available [facility] ([facility]) [address] [place], [address], 10/18/2024 06:37:31 Result Notes None recorded. Problems Name Problem SNOMED Code Status Onset Date Resolution Date Notes Provider Name and Address Organization Details Recorded Time Paresthesia 48041605 Active Flora Fleharty null, [place] [facility] [place] 2 12:29:52 Goiter 5178768 Active Flora Fleharty null, [place] [facility] [place] 2 12:29:52 Hypertensive disorder 08404811 Active Flora Fleharty null, [place] - [facility] & [place] 2 12:29:52 Degeneration of lumbosacral intervertebra l disc 91698488 Active Flora Fleharty null, [place] - [facility] & [place] 2 12:29:52 Spasm 96495567 Active 2022 Paresh Denis MD [address], [place], [address] , [place] - [facility] & [place] 3 16:25:25 Chronic headache disorder 241082262 Active 2022 Paresh Denis MD [address], [place], [address] , [place] [facility] [place] [facility] [place] 3 16:25:28 Seasonal allergy 702781005 Active 2022 Paresh Denis MD [address], [place], [address] , [place] [facility] [place] [facility] [place] 3 16:25:32 Problem Notes None recorded. Procedures Surgical History Date Name Laterality Status Provider Name and Address Organization Details Recorded Time 02/23/19 18 Date of Last Pap Smear completed Taniya Wheatleyong [place] [facility] [place] [facility] [place] 06/12/2022 22:00:07 section completed Rynea Omid [place] [facility] [place] [facility] [place] 06/12/2022 21:55:12 Total Hysterectomy completed Kim Soto [place] [facility] [place] [facility] [place] 09/29/2022 15:47:28 ligation of fallopian tube completed Morena Michael [place] [facility] [place] [facility] [place] 12/01/2024 07:02:45 Imaging Results None recorded. Procedure Notes None recorded. 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 Serial Number Lot Number Status Provider Name and Address Organization Details Recorded Time IUD FDA Y LAURA Pike [facility] [place] 09/22/2024 07:07:14 Allergies Allergen ID Allergen Name Allergen Category Reaction Reaction Severity Criticality Documentation Date Start Date Code Code System Note Provider Name and Address Organization Details Recorded Time 42679 morphine medicatio n Not available Not available Not available 12/24/2021 7052 RxNorm LAURA Gambino [facility] & [place] 2 12:29:52 83518 guaifenes in medicatio n Not available Not available Not available 12/24/2021 5032 RxNorm LAURA Gambino [facility] & [place] 2 12:29:52 Medications Name Sig Start Date [...] Not Avai lable Vitals Date Recorded Body height Body mass index (BMI) Body weight Body temperature Heart rate Systolic And Diastolic Provider Name and Address Organization Details Last Updated DateTime 172.72 cm 38.1 kg/m2 653664. 53 g 96.7 [degF] 89 /min 141/93 mm[Hg] Jeanine CORCORAN [facility] [place] 13:50:54 Social History Question Answer Notes LastModified by Organizat ion Details LastModified Time Tobacco Smoking Status Current Every Day Smoker Kim willoughby, LAURA CORCORAN [facility] & [place] 09/29/2022 15:47:03 Do You Have An Advance Directive? No [email or web address] Information not available 09/29/2022 Are You Blind Or Do You Have Difficulty Seeing? Yes Glasses [email or web address] Information not available 09/29/2022 Is Blood Transfusion Acceptable In An Emergency? Yes [email or web address] Information not available 09/29/2022 What Is Your Level Of Caffeine Consumption? Heavy [email or web address] Information not available 09/29/2022 In The 14 Days Before Symptom Onset, Have You Had Close Contact With A Laboratory-confir med COVID-19 While That Case Was Ill? No [email or web address] Information not available 09/29/2022 In The 14 Days Before Symptom Onset, Have You Had Close Contact With A Person Who Is Under Investigation For COVID-19 While That Person Was Ill? No [email or web address] Information not available 09/29/2022 Have You Been To An Area Known To Be High Risk For COVID-19? No [email or web address] Information not available 09/29/2022 Are You Deaf Or Do You Have Serious Difficulty Hearing? No [email or web address] Information not available 09/29/2022 What Type Of Diet Are You Following? REGULAR Information not available 09/29/2022 Which Illicit Or Recreational Drugs Have You Used? Darby [place] [email or web address] Information not available 09/29/2022 Have You Processed Blood Or Body Fluids From An Ebola Virus Disease Patient Without Appropriate PPE? No [email or web address] Information not available 09/29/2022 Do You Reside In Or Have You Traveled To An Area Where Ebola Virus Transmission Is Active? No [email or web address] Information not available 09/29/2022 Have There Been Any Changes To Your Family Or Social Situation? No [email or web address] Information no t available 09/29/2022 What Is The Fluoride Status Of Your Home? Fluoridated [email or web address] Information not available 09/29/2022 Are There Any Guns Present In Your Home? No [email or web address] Information not available 09/29/2022 Have You Recently Or Are You Planning To Travel To An Area With Zika Virus? No Information not available 09/29/2022 Do You Use Insect Repellent Routinely? Yes [email or web address] Information not available 09/29/2022 What Was The Date Of Your Most Recent Tobacco Screening? 09/28/2022 [email or web address] Information not available 09/29/2022 What Is Your Current Pack Years? 10-19packyears [email or web address] Information not available 09/29/2022 Do You Have Any Pets? Yes [email or web address] Information not available 09/29/2022 Do You Use Your Seat Belt Or Car Seat Routinely? Yes [email or web address] Information not available 09/29/2022 Do You Have Smoke And Carbon Monoxide Detectors In Your Home? Yes [email or web address] Information not available 09/29/2022 At What Age Did You Start Smoking Tobacco? 17 [email or web address] Information not available 09/29/2022 Are You Passively Exposed To Smoke? Yes [email or web address] Information no t available 09/29/2022 How Much Tobacco Do You Smoke? 0.5 PPD uegtbsodv33 Information not available 09/29/2022 Do You Use Sunscreen Routinely? Yes [email or web address] Information not available 09/29/2022 How Many Years Have You Smoked Tobacco? 10 [email or web address] Information not available 09/29/2022 Have You Used IV Drugs? No Information not available 09/29/2022 Do You Have Difficulty Walking Or Climbing Stairs? No [email or web address] Information not available 09/29/2022 Are You Currently In School? No [email or web address] Information not available 09/29/2022 Sex: Female Functional Status Question Answer Note LastModified by Organizat ion Details LastModified Time Do you use any illicit or recreational drugs? Yes [email or web address] Information not available 09/29/2022 Do you or have you ever used any other forms of tobacco or nicotine? No tmkuwfyhs01 Information not available 09/29/2022 What is your level of alcohol consumption? None [email or web address] Information not available 09/29/2022 Do you or have you ever used smokeless tobacco? Never used smokeless tobacco cgypeqzhq77 Information not available 09/29/2022 Are you currently employed? Yes Information not available 09/29/2022 Do you have transportation difficulties? No jpmeyqgdx73 Information not available 09/29/2022 Are you able to walk independently without assistance or assistive devices? YESWOREST [email or web address] Information not available 09/29/2022 Do you have difficulty doing errands alone? No [email or web address] Information not available 09/29/2022 Are you able to care for yourself independently? Yes [email or web address] Information not available 09/29/2022 Do you have difficulty dressing, bathing, grooming, or toileting? No [email or web address] Information not available 09/29/2022 What is your exercise level? Moderate vxedqiafz65 Information not available 09/29/2022 Mental Status Question Answer Note LastModified by Organizat ion Details LastModified Time Do you feel stressed (tense, restless, nervous, or anxious, or unable to sleep at night)? [id number] [email or web address] Information not available 09/29/2022 Do you have difficulty concentrating, remembering or making decisions? No [email or web address] Information no t available 09/29/2022 Family History Relationship Description Onset Age of this Age Resolved Age Notes LastModified by Organization Details LastModified Time Father Cerebrovascu lar accident [email or web address] Not available 21:58:27 Father Heart disease Not available 2022 21:58:57 Daughter Alive [email or web address] Not availab le 12/29/2023 14:07:59 Son Alive [email or web address] Not available 12/29/2023 14:07:59 Medical History Condition [...] 1 completed Paresh Denis MD [address], [place], [address], [place] [facility] & [place] 09/29/2022 16:17:21 COVID-19, mRNA, LNP-S, PF, 30 mcg/0.3 mL dose 1 completed Paresh Denis MD [address], [place], [address], [place] [facility] & [place] 09/29/2022 16:17:22 Hep B, adolescent or pediatric 0 completed Not Available [facility] 11/16/2024 13:15:00 Hep B, adolescent or pediatric 0 completed Not Available [facility] 11/16/2024 13:15:00 Hep B, adolescent or pediatric 1 completed Not Available [facility] 11/16/2024 13:15:00 Td (adult), 2 Lf tetanus toxoid, preservative free, adsorbed 5 completed Not Available [facility] 11/16/2024 13:15:00 Past Encounters Encounter ID Performer Location Encounter Start Date Encounter Closed Date Diagnosis/Indication Diagnosis SNOMED-CT Code Diagnosis ICD10 Code Diagnosis IMO Codes Diagnosis Note [id number] CARMENCITA Gibson and FRANCISCO stallings [address] [place] [address] 10/04/2024 13:26:10 10/04/2024 15:47:58 Essential hypertension 96203046 I10 16449 Anxiety 93398185 F41.9 49377 [id number] MD Amina Chaudhari and Donna stallings [address] [place] [address] 10/17/2024 13:30:01 10/17/2024 14:55:52 Hypertensive disorder 40425484 I10 Goiter 2967859 E04.9 Acute kidney injury 1466 9001 N17.9 267061 Adjustment disorder with depressed mood 12057135 F43.21 65386 Pain in left thumb 35996 12960 344713 M79.645 [id number] Health Concerns Section Related Observation LastModified by Organization Detai ls LastModified Time None Recorded Concern Status LastModified by Organization Details LastModified Time None Recorded Payers Encounter Date Sequence Insurance Name Policy Number Policy Ordoñez Covered Member ID Ordoñez Member ID Guarantor Name 10/17/2024 1 [facility] ([place] REPLAC[place] - [place] [id number] Cristiane Whatley [id number] Cristiane Whatley Notes Date Note Type Note Provider Name and Address Organization Details Recorded Time text/html Cristiane Whatley is a 34-year-old female [...] blood work, EKG, and heart monitoring at [facility], where her kidney function was noted to [...] was SBP 60's. WEnt to ED at [facility] which had normal labs except for [...] episode and she just stopped all meds. [facility]:--PAP smear 2019 (Dr. Shah, [facility]). 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 Paresh Denis MD [address] [facility], [place], [address], [facility] - [place] - [facility] 10/18/2024 15:53:52 OBGyn Episode No OBEpisode recorded.
--- NOTE | 2024-12-10 18:40 | XR_ITS ---
PROCEDURE INFORMATION: Exam: XR Left Foot Exam date and time: 12/10/2024 6:51 PM Age: 34 years old Clinical indication: Injury or trauma; Fall; Other: Pain; Additional info: Lateral foot pain and swelling TECHNIQUE: Imaging protocol: Radiologic exam of the left foot. Views: 3 or more views. COMPARISON: CR XR FOOT LT MIN 3V 12/10/2024 6:51 PM FINDINGS: Bones/joints: There is no evidence of acute fracture or dislocation. Joint spaces appear preserved. Small ovoid focus of sclerosis in the inferior calcaneus likely reflects benign bone island. Soft tissues: No significant soft tissue edema. No subcutaneous emphysema or radiopaque foreign bodies. IMPRESSION: No acute posttraumatic osseous injury.
--- NOTE | 2024-12-10 18:40 | XR_ITS ---
PROCEDURE INFORMATION: Exam: XR Left Ankle Exam date and time: 12/10/2024 6:51 PM Age: 34 years old Clinical indication: Injury or trauma; Fall; Other: Pain; Additional info: Left ankle and foot swelling, pain after fall TECHNIQUE: Imaging protocol: Radiologic exam of the left ankle. Views: 3 or more views. COMPARISON: CR XR ANKLE LT MIN 3V 12/10/2024 6:51 PM FINDINGS: Bones/joints: There is no evidence of acute fracture or dislocation. Joint spaces appear preserved. Soft tissues: No significant soft tissue edema. No subcutaneous emphysema or radiopaque foreign bodies. IMPRESSION: No acute posttraumatic osseous injury.
[2024-12-10 19:00] VITALS: BP 106/73; O2SAT 98
[2024-12-10 19:30] VITALS: BP 116/76; O2SAT 97
--- NOTE | 2024-12-10 20:48 | ED_ITS ---
<Statement entered by Chris Juarez MD - 12/11/24 02:12> I was consulted by the MONTSE, and we discussed the complexity of the problems being addressed. I approve the treatment and management plan for this patient's care in the emergency department, thus performing a substantive portion of the medical decision making. Chris Juarez MD Discharge Plan Disposition Patient Disposition: Home, Self-Care Condition: Good Prescriptions Prescriptions: No Action amitriptyline 25 mg tablet 25 mg PO Patient Comments: TAKE 1 TABLET BY MOUTH EVERY DAY hydrochlorothiazide 25 mg tablet 25 mg PO Patient Comments: TAKE 1 TABLET BY MOUTH EVERY DAY escitalopram oxalate 10 mg tablet 10 mg PO Patient Comments: TAKE 1 TABLET BY MOUTH EVERY DAY Referrals Follow up/Referrals: Edmundo Harkins DO [Staff Physician, Orthopedics] - See instructions Paresh Denis [Primary Care Provider, Medical] - See instructions Activity Restrictions/Add. Instructions Additional Instructions/Restrictions: You were seen for an ankle sprain. Please follow up with the orthopedist. Clinical Impressions Clinical Impression: Ankle sprain Instructions Patient Instructions: Ankle Sprain Print Language Print Language: Chinese Discharge ED Provider: Chris Juarez General Adult HPI General Chief complaint: Extremity Injury, Lower Stated complaint: left foot pain Time Seen by Provider: 12/10/24 18:30 Mode of Arrival: Ambulatory Source of Information: Patient Description of Symptoms (Recalled from ER Triage Doc. by RN): pt rolled left ankle on thursday, has been taking nsaid using elevation and ice and heat, just wants to make sure it aint broke as pain is starting to radiate down the foot History of Present Illness HPI narrative: Patient reports that she rolled her left ankle on Thursday. She reports that she continues to have pain and swelling laterally. She has tried ice, ibuprofen, r est without improvement. She denies any other pain. Denies any head injury. complaint: ankle pain Onset (ago): day(s) Location: left and lower extremity Radiation: non-radiation Severity: moderate Consistency: constant Relieving factors: rest Exacerbating factors: movement Related Data Home Medications ?Medication ?Instructions ?Recorded ?Confirmed amitriptyline 25 mg tablet 25 mg PO 10/27/24 10/27/24 escitalopram oxalate 10 mg tablet 10 mg PO 10/27/24 hydrochlorothiazide 25 mg tablet 25 mg PO 10/27/2406/17 Allergies Allergy/AdvReac Type Severity Reaction Status Date / Time guaifenesin (From Mucinex) Allergy Mild Rash Verified 10/27/24 17:27 morphine Allergy itching Verified 10/27/24 17:27 [facility] Disclaimer: The information contained in this section may have been updated after the patient was seen, as this information can be updated by other users. 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 current occupational exposures/hazards: No caffeine: Yes Have you lived/traveled outside [place] in past 30 days?: No Contact w/someone who lives/traveled outside [place] past 30 days?: No Exposure to someone with infectious disease in past 14 days?: No Do you have a fever (greater than 100.4 F or 38 C)?: No Have you tested positive for COVID-19?: No Exposed to someone with COVID-19 in past 14 days?: No Do you have a sore throat?: No Do you have a cough?: No Do you have any weakness?: No Do you have any diarrhea?: No Are you experiencing any unusual bleeding?: No Do you have any muscle aches/pain?: No Do you have any abdominal pain?: No Are you experiencing loss of taste or smell?: No Other Medical History Have you received the Flu Vaccine for this season: No Have you received the Pneumonia Vaccine: No ROS Obtained: Yes Systems reviewed as appropriate & no additional complaints except as documented Physical Exam General General appearance: alert and in no apparent distress Head Head exam: atraumatic and normocephalic Eye Eye exam: Present normal appearance and EOMI Chest Chest inspection: Present symmetric chest wall rise Respiratory Respiratory exam: Present normal lung sounds bilaterally; Absent wheezes or stridor Cardiovascular Cardiovascular exam: Present regular rate and normal rhythm; Absent systolic murmur Extremities Exam Extremities exam: Present full ROM and other (Left lateral foot and ankle TTP and edema, limited dorsiflexion and plantar flexion, N/V intact. ) Neurological Exam Neurological exam: Present alert and oriented X3 Psychiatric Psychiatric exam: Present normal affect and normal mood Skin Skin exam: Present warm, dry and intact Medical Decision Making Medical Records Screening: Per USPSTF and CDC recommendations, given the prevalence of disease in our region, it is our hospital?s policy to screen for HIV and viral Hepatitis for all patients aged 18 and over and those with ongoing risk factors. Chun Inquiry Pt receiving controlled substance: No Vital Signs: 12/10/24 18:27 12/10/24 19:00 12/10/24 19:30 Temperature 97.8 F Temperature Source Oral Pulse Rate Pulse Rate [Left Radial] 92 H Respiratory Rate 20 Blood Pressure 106/73 L 116/76 Blood Pressure [Right Arm] 124/85 Blood Pressure Mean 84 83 Blood Pressure Mean [Right Arm] 98 02 Sat by Pulse Oximetry 100 98 97 Oxygen Delivery Method Room Air 12/10/24 20:54 Temperature 97.8 F Temperature Source Pulse Rate 82 Pulse Rate [Left Radial] Respiratory Rate 18 Blood Pressure 107/73 L Blood Pressure [Right Arm] Blood Pressure Mean Blood Pressure Mean [Right Arm] 02 Sat by Pulse Oximetry Oxygen Delivery Method Room Air Orders (Tests/Meds): ORDERS Category Date Time Status Ankle XR - Left minimum 3 Views [XR ankle LT min 3V] Exams 12/10/24 18:40 Completed Stat Foot XR left minimum 3 views [XR foot LT min 3V] Stat Exams 12/10/24 18:40 Completed Medical Decision Narrative: Patient presents with left ankle and foot pain after injury. Xray is unremarkable. Given immobilization and referred to ortho. Given return precautions. Agreeable with plan. Critical Care Critical Care Time Critical Care Time: No
[2024-12-10 20:54] VITALS: BP 107/73; PULSE 82; RESP 18; TEMP 36.6; O2SAT 98
== END 2024-12-10 20:58 | disposition home or self-care (01) ==
PROVIDERS: Emergency Provider Student in an Organized Health Care Education/Training Program; PCP Pediatrics
DX: S93.402A Sprain of unspecified ligament of left ankle, initial encounter (principal); M79.672 Pain in left foot; X50.1XXA Overexertion from prolonged static or awkward postures, initial encounter
CPT/HCPCS: 73610; 73630; 99283

== ENCOUNTER 2025-02-20 18:31 | Outpatient (CLI) | payer OTHER, SELFPAY ==
--- OUTSIDE RECORDS SUMMARY | 2025-02-21 12:17 | XMS_ITS | Clinical Summary ---
Author Organization [facility] Address [address] [place] [address] Care Team Providers Care Customer Greeter Name Role Phone Unavailable Primary Care Provider [...] 02/06/2009 [facility]-Cervical Cancer Screening 02/06/2018 [facility]-HPV/Cotest 02/06/2018 [id number] Vaccine ( - 20 25-26 season) 2024 [facility]-Influenza Vaccine (#1) 2024 [facility]-Zoster Vaccines (1 of 2) 02/06/2038 HPV Vaccines (No Doses Required) Completed [facility]-HIB Vaccines Aged Out No longer e [...]
[2025-02-23 11:14] LABS: Mycoplasma genitalium, NAA Negative (Negative); Neisseria gonorrhoeae, NAA Negative (Negative)
== END 2025-02-20 23:59 | disposition home or self-care (01) ==
LOC: LAB.DROPOF 02-21 12:14
PROVIDERS: PCP Pediatrics; Visit Provider Nurse Practitioner
DX: Z20.2 Contact with and (suspected) exposure to infections with a predominantly sexual mode of transmission (principal)
CPT/HCPCS: 87491; 87563; 87591; 87661